=== PATIENT | male | born 1955 | race American Indian/Alaskan Native ===

== ENCOUNTER 2017-10-25 10:47 | Inpatient (IN) | payer MEDICARE, OTHER, MEDICAID ==
[~2017-10-25] VITALS: Ht 177.8 cm; Wt 103.7 kg
[~2017-10-25 10:47] MED LIST: ACETAMINOPHEN325 M1 PO; ASPIR-LOW81 MG PO; BACTRIM DS TAB1 EACH PO; BENADRYL25 MG PO; CENTRAL VITE F1 EACH PO; CLOTRIMAZOLE-BE15 GM TOP; DOXYCYCLINE HY100 MG PO; GABAPENTIN600 MG PO; IRON325 MG PO; JANUMET 50-1,01 EACH PO; JANUVIA25 MG PO; KEFLEX500 MG PO; LANTUS SOL100 UNIT/1 SQ; LIPITOR10 MG PO; LISINOPRIL10 MG PO; LISINOPRIL5 MG PO; METFORMIN HCL500 MG PO; OXYCODONE HCL5 MG PO; PRILOSEC20 MG PO
--- NOTE | 2017-10-25 14:16 | NUR ---
PT ARRIVED TO ROOM 129 VIA STRETCHER FROM ER. PT TRANSFERRED SELF TO BED, HOB ELEVATED. VITAL SIGNS COMPLETED. LEFT FOOT RED, SWOLLEN AND ULCER NOTED ON BOTTOM OF LEFT FOOT. PT HAS HAD 3 TOES AMPUTATED ON LEFT FOOT AND ALSO THE TIPS OF 4 TOES ON RIGHT FOOT ALSO AMPUTATED.
--- NOTE | 2017-10-25 15:14 | NUR ---
Medications reconciled using pharmacy records and patient interview
--- NOTE | 2017-10-25 16:13 | NUR ---
DR. CONTEH IN TO ASSESS LEFT FOOT ULCER AND SWELLING.
--- NOTE | 2017-10-25 19:50 | NUR ---
PT UP TO BATHROOM WITH WALKING BOOT ON LEFT FOOT. PT HAD LIQ STOOL AND VOIDED 150 MLS ORANGE URINE. C/O OF HEADACHE AND MEDICATED WITH TYLENOL 650 MG PO. PT RETURNED TO BED RESTING WITH LOWER EXTREMITY ELEVATED.
--- NOTE | 2017-10-25 20:00 | NUR ---
PT SHIFT REPORT RECEIVED FROM DAY SHIFT RN. PT BACK TO BED FROM BATHROOM. PT WAS ONLY ABLE TO VOID 150 PER REPORT. WILL UPDATED MD. NO OTHER ISSUES AT THIS TIME. PT CALLS APPROPRIATELY AND HAS A VISTOR AT THE BEDSIDE.
--- NOTE | 2017-10-25 20:15 | NUR ---
GAVE PRN PAIN MEDICATION FOR PAIN 02/11. PT DENIES ANY FURTHER NEEDS AT THIS TIME. WILL CONTINUE TO CLOSELY MONITOR.
--- NOTE | 2017-10-25 20:30 | NUR ---
CALLED MD DUONG TO NOTIFY HER OF 150ML URINE OUTPUT SINCE ADMISSION. PER MD INCREASE MAINTENANCE FLUIDS TO 125. FLUIDS INCREASED WILL CONTINUE TO CLOSELY MONITOR. PT UP TO CAMMODE AND HAD 200ML LOOSE BM. PT TOELRATED WELL. BACK TO BED WILL CONTINUE TO MONITOR.
--- NOTE | 2017-10-25 23:00 | NUR ---
PT COMPLAINING OF NEUROPATHY PAIN IN HANDS AND FEET. PT TAKES GABAPENTIN AT HOME AT HS. CALLED MD DUONG TO UPDATE. PER MD ORDER HOME DOSE. NO OTHER ISSUES AT THIS TIME. WILL CONTINUE TO CLOSELY MONITOR.
--- NOTE | 2017-10-26 00:32 | NUR ---
IN TO COMPLETED PT ASSESSMENT. UNCHANGED FROM PREVIOUS ASSESSMENT. ASSISTED PT TO BEDSIDE TO URE URINAL. PT TOELRATED WELL AND WAS ABLE TO USE ON HIS OWN. PT BACK TO BED. PT DENIES ANY OTHER ISSUES AT THIS TIME. WILL CONTINUE TO CLOSELY MONITOR.
--- NOTE | 2017-10-26 02:00 | NUR ---
PT RESTING AT THIS TIME. WILL CONTINUE TO ENCOURAGE REST. PT CALLS APPROPRIATELY.
--- NOTE | 2017-10-26 03:45 | NUR ---
PT CALLED TO USE URINAL. ASSISTED PT TO BEDSIDE TO USE URINAL. PT IS ABLE TO USE URINAL ON HIS OWN. PT DNEIES ANY NEEDS AT THIS TIME. PT ASSISTED BACK TO BED WITH FOOT ELEVATED ON PILLOWS. ASSESSMENT UNCHANGED FROM PRIOR ASSESSMENTS. WILL CONTINUE TO CLOSELY MONITOR.
--- NOTE | 2017-10-26 06:00 | NUR ---
PT CALLED TO HAVE ROOM TEMP TURNED UP. PT DENIES ANY OTHER NEEDS AT THIS TIME. WILL CONTINUE TO CLOSELY MONITOR.
--- NOTE | 2017-10-26 09:53 | NUR ---
ASSESSMENT COMPLETED, DENIES C/O AT THIS TIME. PT ATE 100% OF DIABETIC BREAKFAST.
--- NOTE | 2017-10-26 12:57 | NUR ---
PT REFUSED LUNCH AND IS SLEEPING AT THIS TIME. 1 UNIT INSULIN HELD.
--- NOTE | 2017-10-26 14:34 | NUR ---
PATIENT WITH REQUEST TO EAT, NEW MEAL TRAY ORDERED, PATIENT'S BLOOD SUGAR RE-CHECKED, 117 MG/DL, NO CORRECTIONS NEEDED. WILL RE-CHECK AT SCHEDULED TIME. PATIENT EATING.
--- NOTE | 2017-10-26 16:39 | NUR ---
PT RESTING IN BED, LEFT FOOT CLEANED AND DRESSING CHANGED PER DR. YADY ALBERTO. TYLENOL 650 MG GIVEN PO FOR C/O HEADACHE "12/12".
--- NOTE | 2017-10-26 17:23 | NUR ---
DR. CONTEH IN TO ASSESS LEFT FOOT AND CHANGE FOOT DRESSING. DRESSING CHANGE NOT DUE UNTIL TOMORROW. PT UP TO BSC WITH ONE PERSON ASSESS.
--- NOTE | 2017-10-26 19:45 | NUR ---
PT SHIFT REPORT RECEIVED FROM DAY SHIFT RN. PT IS RESTING IN BED WITH VISITOR AT BEDSIDE. PT DENEIS ANY NEEDS AT THIS TIME. WILL CONTINUE TO CLOSELY MONITOR.
--- NOTE | 2017-10-26 20:00 | NUR ---
PT SHIFT ASSESSMENT COMPLETED. PT IS RESTING IN BED. PT STATES HE FEELS BACK TO HIS BASELINE. LEFT FOOT IS WRAPPED IN DRY DRESSING. PT STATES PAIN IS BETTER. BREATH SOUNDS ARE CLEAR. BOWEL TONES ACTIVE. LEFT FOOT IS ELEVATED ON PILLOWS TO HELP DECREASE SWELLING. PT DENIES ANY NEEDS AT THIS TIME. WILL CONTINUE TO CLOSELY MONITOR.
--- NOTE | 2017-10-26 21:30 | NUR ---
PT UP TO BEDSIDE CAMMODE AND A LOOSE BM AND URINATED IN CAMMODE. PT TOLERATED GETTING BACK TO BED WELL. PT DENIES ANY FURTHER NEEDS. WILL CONTINUE TO CLOSELY MONITOR. PT CALLS APPROPRIATELY.
--- NOTE | 2017-10-27 00:30 | NUR ---
PT ASSESSMENT COMPLETED AND UNCHANGED FROM PREVIOUS ASSESSMENT. PT COMPLAINING OF HEADACHE. GAVE PRN TYLENOL. PT AT SIDE OF BED TO URINATE WITH NO ISSUES. PT BACK TO BED. ELEVATED LEFT FOOT ON PILLOWS. PT DENIES ANY OTHER NEEDS AT THIS TIME. WILL CONTINUE TO CLOSELY MONITOR.
--- NOTE | 2017-10-27 02:30 | NUR ---
IN TO GIVE PT ANTIBIOTICS. PT DENIES ANY NEEDS AT THIS TIME. BOTH IVS CONTINUE TO FLUSH WITH NO ISSUES. WILL CONTINUE TO CLOSELY MONITOR.
--- NOTE | 2017-10-27 03:50 | NUR ---
PT CALLED TO USE URINAL. PT ABLE TO USE ON HIS OWN AT THE SIDE OF THE BED. PT IS UNCOMFORTABLE IN THE BED AND WANTS T SIT UP FOR AWHILE. ASSISTED PT TO THE CHAIR. ELEVATED FEET ON PILLOWS AND GAVE WARM BLANKETS. PT ASSESSMENT REMAINS UNCHANGED FROM PRIOR ASSESSMENT AT THIS TIME. PT DENIES ANY FURTHER NEEDS. FRESH WATER AT BEDSIDE. CALL LIGHT IN HAND. WILL CONTINUE TO CLOSELY MONITOR.
--- NOTE | 2017-10-27 06:00 | NUR ---
PT UP TO URINATE AND BACK TO BED. PT TOLERATED WELL. PT DENIES ANY NEEDS AT THIS TIME. LEG ELEVATED ON PILLOWS. FRESH ICE WATER AT THE BEDSIDE. WILL CONTINUE TO CLOSELY MONITOR.
--- NOTE | 2017-10-27 07:55 | NUR ---
DR. DUONG AT BEDSIDE ASSESSING PT AND UPDATING PLAN OF CARE. PT SITTING AT EDGE OF BED AND FAMILY IN ROOM.
--- NOTE | 2017-10-27 09:17 | NUR ---
PATIENT LEFT FOR MRI OF LEFT FOOT AROUND 0845. PT'S SIGNIFICANT OTHER IN ROOM SLEEPING. BED LINEN CHANGED AT THIS TIME. PT OFF TELE FOR MRI.
--- NOTE | 2017-10-27 10:23 | NUR ---
PATIENT BACK FROM MRI AND NOW RESTING IN BED. IVF RESUMED AT THIS TIME. PT STATES HE IS CURRENTLY PAIN FREE. TELE ON AND NOTED TO BE IN A SINUS RHYTHM WITH A HR IN THE 80s AT THIS TIME.
--- NOTE | 2017-10-27 11:23 | NUR ---
PT RESTING AT THIS TIME
--- OUTSIDE RECORDS SUMMARY | 2017-10-27 12:02 | XMS | Clinical Summary ---
Demographics + + + | Address | [address] | | | [place] [address] | + + + | Home Phone | | + + + | Preferred Language | Unknown | + + + | Marital Status | Single | + + + | Mosque Affiliation | Unknown | + + + | Race | or | + + + | Ethnic Group | Not or | + + + Author + + + | Organization | Unknown | + + + | Address | Unknown | + + + | Phone | Unavailable | + + + Support + + + + + | Name | Relationship | Address | Phone | + + + + + | [place] | ECON | [address] | | | | | [place], | | | | | [place] [address] | | + + + + + Care Team Providers + +------+ + | Care Travertine Installer Name | Role | Phone | + +------+ + PP | Unavailable | + +------+ + Source Comments TALYA is fully live on both [facility] and [facility] Allergies No Known Allergies Current Medications Not on file Active Problems Not on file Social History + +-------+ +--------+------+ | Tobacco Use | Types | Packs/Day | Years | Date | | | | | Used | | + +-------+ +--------+------+ | Never Assessed | | | | | + +-------+ +--------+------+ + + + | Sex Assigned at | Date Recorded | | | | + + + | Not on file | | + + + Plan of Treatment + + + + + | Health Maintenance | Due Date | Last Done | Comments | + + + + + | INFLUENZA VACCINE | | | | | (FLU SHOT) | 8 | | | + + + + + Results Not on filefrom Last 3 Months"
--- OUTSIDE RECORDS SUMMARY | 2017-10-27 12:02 | XMS | Clinical Summary ---
Demographics + + + | Address | [address] | | | [place] [address] | + + + | Home Phone | | + + + | Preferred Language | Unknown | + + + | Marital Status | Single | + + + | Rastafarian Affiliation | Unknown | + + + | Race | Unknown | + + + | Ethnic Group | Unknown | + + + Author + + + | Author | [facility] | + + + | Organization | [facility] | + + + | Address | Unknown | + + + | Phone | Unavailable | + + + Support + + +---------+ + | Name | Relationship | Address | Phone | + + +---------+ + | Diane Gross | ECON | Unknown | | + + +---------+ + | Rodrigue Oh | ECON | Unknown | | + + +---------+ + | Nery Oh | ECON | Unknown | | + + +---------+ + Care Team Providers + +------+ + | Care Supervisor Costuming Name | Role | Phone | + +------+ + | Sona [place] FISH HATCHERY MANAGER | PP | | + +------+ + Allergies + + + + + + | Active Allergy | Reactions | Severity | Noted | Comments | | | | | Date | | + + + + + + | Ciprofloxacin | Hives | High | 04/03/20 | | | | | | 13 | | + + + + + + Current Medications + + +-------+---------+------+------+-------+ | Prescription | Sig. | Disp. | Refills | Star | End | Statu | | | | | | t | Date | s | | | | | | Date | | | + + +-------+---------+------+------+-------+ | aspirin 81 MG EC | Take 81 mg by mouth | | | | | Activ | | tablet | daily with | | | | | e | | | breakfast. | | | | | | + + +-------+---------+------+------+-------+ | Iodine SOLN | Apply topically. | | | | | Activ | | | | | | | | e | + + +-------+---------+------+------+-------+ | Chlorhexidine | Apply topically. | | | | | Activ | | Gluconate 4 % SOLN | | | | | | e | + + +-------+---------+------+------+-------+ | Cholecalciferol | Take 1 capsule by | | | | | Activ | | (VITAMIN D-3) 5000 | mouth daily. | | | | | e | | UNITS TABS | | | | | | | + + +-------+---------+------+------+-------+ | clotrimazole | Apply topically 2 | | | | | Activ | | (LOTRIMIN) 1 % cream | (two) times daily. | | | | | e | + + +-------+---------+------+------+-------+ | ferrous sulfate | Take 1 tablet by | | | | | Activ | | tablet | mouth daily with | | | | | e | | | breakfast. One | | | | | | | | tablet contains 65 | | | | | | | | mg elemental iron | | | | | | | | (324-325 mg ferrous | | | | | | | | sulfate) | | | | | | + + +-------+---------+------+------+-------+ | insulin glargine | Inject 18 Units into | | | | | Activ | | (LANTUS) 100 UNIT/ML | the skin nightly. | | | | | e | | injection | | | | | | | + + +-------+---------+------+------+-------+ | | Take 1 tablet by | | | | | Activ | | HYDROcodone-acetamin | mouth every 6 (six) | | | | | e | | ophen (NORCO) 5-325 | hours as needed. | | | | | | | MG per tablet | | | | | | | + + +-------+---------+------+------+-------+ | hydrophilic | Apply topically as | | | | | Activ | | ointment | needed. | | | | | e | + + +-------+---------+------+------+-------+ | lisinopril | Take 2.5 mg by mouth | | | | | Activ | | (PRINIVIL,ZESTRIL) | daily. | | | | | e | | 2.5 MG tablet | | | | | | | + + +-------+---------+------+------+-------+ | metformin | Take 1,000 mg by | | | | | Activ | | (GLUCOPHAGE) 1000 MG | mouth 2 (two) times | | | | | e | | tablet | daily with meals. | | | | | | + + +-------+---------+------+------+-------+ | sitaGLIPtin | Take 50 mg by mouth | | | | | Activ | | (JANUVIA) 50 MG | daily. | | | | | e | | tablet | | | | | | | + + +-------+---------+------+------+-------+ Active Problems + + + | Problem | Noted Date | + + + | CKD (chronic kidney disease), stage III | 04/03/2013 | + + + | Diabetes mellitus (HCC) | 04/03/2013 | + + + + + | Overview: Since . | + + + + + | Iron deficiency anemia | 04/03/2013 | + + + | Proteinuria | 04/03/2013 | + + + | Vitamin D deficiency | 04/03/2013 | + + + | Osteoarthritis | 04/03/2013 | + + + | Obesity | 04/03/2013 | + + + | Chronic low back pain | 04/03/2013 | + + + Social History + +-------+ +--------+------+ | Tobacco Use | Types | Packs/Day | Years | Date | | | | | Used | | + +-------+ +--------+------+ | Never Smoker | | | | | + +-------+ +--------+------+ + + +---------+ + | Alcohol Use | Drinks/We | oz/Week | Comments | | | ek | | | + + +---------+ + | No | | | | + + +---------+ + + + + | Sex Assigned at | Date Recorded | | | | + + + | Not on file | | + + + Last Filed Vital Signs + + + + | Vital Sign | Reading | Time Taken | + + + + | Blood Pressure | 137/85 | 04/06/2017 1:16 PM PDT | + + + + | Pulse | 86 | 04/06/2017 1:16 PM PDT | + + + + | Temperature | 36.7 C (98 F) | 04/06/2017 1:16 PM PDT | + + + + | Respiratory Rate | 18 | 06/11/2015 2:07 PM PST | + + + + | Oxygen Saturation | 100% | 04/06/2017 1:16 PM PDT | + + + + | Inhaled Oxygen | - | - | | Concentration | | | + + + + | Weight | 99.8 kg (220 lb) | 03/09/2017 11:21 AM PDT | + + + + | Height | 177.8 cm (5' 10") | 03/09/2017 11:21 AM PDT | + + + + | Body Mass Index | 31.57 | 03/09/2017 11:21 AM PDT | + + + + Plan of Treatment + + + + + | Health Maintenance | Due Date | Last Done | Comments | + + + + + | Diabetic Eye Exam | | | | | | 7 | | | + + + + + | Hemoglobin A1c | | | | | | 7 | | | + + + + + | Microalbumin | | | | | Screening | 7 | | | + + + + + | Vaccine: | | | | | Dtap/Tdap/Td (1 - | 6 | | | | Tdap) | | | | + + + + + | Vaccine: | | | | | Pneumococcal 19-64 | 6 | | | | (PPSV23 only) Medium | | | | | Risk (1 of 1 - | | | | | PPSV23) | | | | + + + + + | Colon Cancer | | | | | Screening | 7 | | | | (Colonoscopy) | | | | + + + + + | Statin Therapy | | | | | (optimal intensity) | 6 | | | + + + + + | Diabetic Foot Exam | | 05/22/2016, 05/22/2016 | | | | 7 | | | + + + + + | Vaccine: Influenza | | | | | (Season Ended) | 8 | | | + + + + + Results Not on filefrom Last 3 Months Insurance + +--------+ +------+-------+ + | Payer | Benefi | Subscriber | Type | Phone | Address | | | t Plan | ID | | | | | | / | | | | | | | Group | | | | | + +--------+ +------+-------+ + | MEDICARE | MEDICA | xxxxxxxxxx | | | [address] | | | RE | | | | [place] [phone] | | | IP-OP | | | | | + +--------+ +------+-------+ + | [facility] | YELLOW | xxxxxxxxx | | | | | PLANS | [place] | | | | | + +--------+ +------+-------+ + + +--------+ +--------+ + + | Guarantor Name | Accoun | Relation to | Date | Phone | Billing Address | | | t Type | Patient | of | | | | | | | | | | + +--------+ +--------+ + + | [place] | Person | Self | [birth year] | Home: | [address] | | | al/Fam | | 7 | [phone] | [place] | | | geral[place] | | | [phone] | [phone] | + +--------+ +--------+ + +
--- OUTSIDE RECORDS SUMMARY | 2017-10-27 12:03 | XMS | Clinical Summary ---
Demographics + + + | Address | [address] | | | [place] [address] | + + + | Home Phone | | + + + | Preferred Language | Unknown | + + + | Marital Status | Single | + + + | Quaker Affiliation | Unknown | + + + [...] + | [place] | ECON | [address] | | | | | [place], | | | | | [place] [address] | | + + + + + Care Team Providers + +------+ + | Care Director Construction Services Name | Role | Phone | + +------+ + PP | Unavailable | + +------+ + Source Comments TALYA is fully live on both [facility] and [facility] InPatient.[facility] Allergies No Known Allergies Current Medications Not [...]
--- OUTSIDE RECORDS SUMMARY | 2017-10-27 12:03 | XMS | Clinical Summary ---
Demographics + + + | Address | [address] | | | [place] [address] | + + + | Home Phone | | + + + | Preferred Language | Unknown | + + + | Marital Status | Unknown | + + + | Yazidism Affiliation | Unknown | + + + | Race | Unknown | + + + | Ethnic Group | Unknown | + + + Author + + + | Author | [facility] | | | and [place] | + + + | Organization | [facility] | | | and [place] | + + + | Address | Unknown | + + + | Phone | Unavailable | + + + Support + + +---------+ + | Name | Relationship | Address | Phone | + + +---------+ + | Diane Gross | ECON | Unknown | | + + +---------+ + | Ashwini Oh | ECON | Unknown | | + + +---------+ + Care Team Providers + +------+ + | Care Manager Implementation Name | Role | Phone | + +------+ + | Pcp, Prov Inactive | PP | Unavailable | + +------+ + Allergies + + + + + + | Active Allergy | Reactions | Severity | Noted | Comments | | | | | Date | | + + + + + + | Amoxicillin | Hives | Medium | 02/23/20 | | | | | | 14 | | + + + + + + | Ciprofloxacin | Hives | Medium | 02/23/20 | | | | | | 14 | | + + + + + + | Clarithromycin | Anaphylaxis | High | 02/23/20 | | | | | | 14 | | + + + + + + Current Medications + + +---------+---------+------+------+-------+ | Prescription | Sig. | Disp. | Refills | Star | End | Statu | | | | | | t | Date | s | | | | | | Date | | | + + +---------+---------+------+------+-------+ | aspirin 81 mg EC | Take 81 mg by mouth | | | | | Activ | | tablet | Daily. | | | | | e | + + +---------+---------+------+------+-------+ | omeprazole | Take 20 mg by mouth | | | | | Activ | | (PRILOSEC) 20 mg | 2 times daily. | | | | | e | | capsule | | | | | | | + + +---------+---------+------+------+-------+ | ferrous sulfate | Take 325 mg by mouth | | | | | Activ | | 325 mg tablet | 2 times daily (with | | | | | e | | | breakfast & | | | | | | | | dinner). Take two | | | | | | | | tablets | | | | | | + + +---------+---------+------+------+-------+ | gabapentin | Take 600 mg by mouth | | | | | Activ | | (NEURONTIN) 600 MG | 3 times daily. | | | | | e | | tablet | | | | | | | + + +---------+---------+------+------+-------+ | insulin glargine | Inject under the | | | | | Activ | | (LANTUS) 100 | skin nightly. Inject | | | | | e | | units/mL injection | 18 units | | | | | | | cartridge | subcutaneously at | | | | | | | | bedtime | | | | | | + + +---------+---------+------+------+-------+ | epinephrine | Inject into the | | | | | Activ | | (EPIPEN) 0.3 mg/0.3 | muscle once as | | | | | e | | mL injection (ER | needed. | | | | | | | Prepack) | | | | | | | + + +---------+---------+------+------+-------+ | | Apply topically | | | | | Activ | | clotrimazole-betamet | Twice daily as | | | | | e | | hasone (LOTRISONE) | needed. Apply a | | | | | | | cream | small amount to | | | | | | | | affected area (s) | | | | | | + + +---------+---------+------+------+-------+ | atorvaSTATin | Take 10 mg by mouth | | | | | Activ | | (LIPITOR) 10 mg | nightly. | | | | | e | | tablet | | | | | | | + + +---------+---------+------+------+-------+ | tamsulosin | Take 1 capsule by | 30 | 1 | 05/0 | | Activ | | (FLOMAX) 0.4 mg CAPS | mouth nightly. | capsule | | 5/20 | | e | | | | | | 16 | | | + + +---------+---------+------+------+-------+ Active Problems + + + | Problem | Noted Date | + + + | Acute kidney injury (HCC) | 11/06/2015 | + + + + + | Last Assessment & Plan: - Suspect due to hypotension, | | hypovolemia over the last few days on top of mild CKD due to | | long-standing diabetes- After fluids, creatinine decreased from | | 5.4 to 3.2 overnight- Stop lisinopril- Renal ultrasound showed no | | hydronephrosis- UA showed slight protein but otherwise benign | | | |- Renal ultrasound showed no hydronephrosis | | | |- UA showed slight protein but otherwise benign | + + + + + | Diabetes mellitus (HCC) | 11/06/2015 | + + + + + | Last Assessment & Plan: - Insulin-dependent diabetic- | | Continue glargine, insulin sliding scale, hold oral meds for now | |- Continue glargine, insulin sliding scale, hold oral meds for now | + + + + + | Hyperlipidemia | 11/06/2015 | + + + | Syncope | 11/06/2015 | + + + + + | Last Assessment & Plan: - Likely due to hypotension, check | | echo | + + + + + | Hypotension | 11/06/2015 | + + + + + | Last Assessment & Plan: - BP stable after fluids, no longer | | symptomatic - Suspect due to hypovolemia, only on small dose of | | BARB inhibitor- Check echo | | | |- Check echo | + + Family History + + +------+ + | Medical History | Relation | Name | Comments | + + +------+ + | Arthritis | Father | | | + + +------+ + | Heart disease | Father | | | + + +------+ + | High blood pressure | Father | | | + + +------+ + | Kidney disease | Father | | | + + +------+ + | Stroke | Father | | | + + +------+ + | Arthritis | Mother | | | + + +------+ + | Heart disease | Mother | | | + + +------+ + | High blood pressure | Mother | | | + + +------+ + | Kidney disease | Mother | | | + + +------+ + | Other (see comment) | Mother | | bleeding problem | + + +------+ + | Stroke | Mother | | | + + +------+ + + +------+--------+ + | Relation | Name | Status | Comments | + +------+--------+ + | Father | | | | + +------+--------+ + | Mother | | | | + +------+--------+ + Social History + +-------+ +--------+------+ | Tobacco Use | Types | Packs/Day | Years | Date | | | | | Used | | + +-------+ +--------+------+ | Former Smoker | | | | | + +-------+ +--------+------+ + +---+---+---+ | Smokeless Tobacco: | | | | | Never Used | | | | + +---+---+---+ + + +---------+ + | Alcohol Use | Drinks/We | oz/Week | Comments | | | ek | | | + + +---------+ + | Yes | | | rare | + + +---------+ + + + + | Sex Assigned at | Date Recorded | | | | + + + | Not on file | | + + + Last Filed Vital Signs + + + + | Vital Sign | Reading | Time Taken | + + + + | Blood Pressure | 135/69 | 11/07/2015747 PDT | + + + + | Pulse | 87 | 11/07/2015747 PDT | + + + + | Temperature | 36.9 C (98.4 F) | 11/07/2015747 PDT | + + + + | Respiratory Rate | 18 | 11/07/2015747 PDT | + + + + | Oxygen Saturation | 95% | 11/07/2015747 PDT | + + + + | Inhaled Oxygen | - | - | | Concentration | | | + + + + | Weight | 100.7 kg (222 lb 0.1 | 11/07/2015313 PDT | | | oz) | | + + + + | Height | 177.8 cm (5' 10") | 11/05/20152019 PDT | + + + + | Body Mass Index | 31.85 | 11/07/2015313 PDT | + + + + Plan of Treatment + + + + + | Health Maintenance | Due Date | Last Done | Comments | + + + + + | Hepatitis C | | | | | Screening | 7 | | | + + + + + | Diabetic Eye Exam | | | | | (Bi-Annually) | 5 | | | + + + + + | Diabetic Foot Exam | | | | | | 5 | | | + + + + + | Hemoglobin A1c Q3 | | | | | Months | 5 | | | + + + + [...] | + + + + + | COLON CANCER | | | | | SCREENING | 7 | | | | (COLONOSCOPY EVERY | | | | | 10 YEARS 50-75) | | | | + + + + + | Vaccine: Influenza | | | | | (Season Ended) | 8 | | | + + + + + Results Not on filefrom Last 3 Months Insurance + +--------+ +--------+ +---------+ | Payer | Benefi | Subscriber | Type | Phone | Address | | | t Plan | ID | | | | | | / | | | | | | | Group | | | | | + +--------+ +--------+ +---------+ | MEDICARE | MEDICA | xxxxxxxxxx | Medica | [phone] | | | RE | | re | [phone] | | | | PART A | | | | | | | AND B | | | | | + +--------+ +--------+ +---------+ | [employer] | MODA | xxxxxxxx | Medica | [phone] | | MEDICAID HMO | HEALTH | | id | [phone] | | | | MDCD | | | | | | | [place]MO [place] | | | | | + +--------+ +--------+ +---------+ | HEALTH | IHS | xxxxxxxxx | Indemn | | | | SERVICE | YELLOW | | ity | | | | | [place] | | | | | + +--------+ +--------+ +---------+ + +--------+ +--------+ + + | Guarantor Name | Accoun | Relation to | Date | Phone | Billing Address | | | t Type | Patient | of | | | | | | | | | | + +--------+ +--------+ + + | [place] | Person | Self | [birth year] | Home: | [address] | | | [address] | | [phone] | [phone] | [place] | | | geraldo | | | [phone] | [phone] | + +--------+ +--------+ + +
--- OUTSIDE RECORDS SUMMARY | 2017-10-27 12:03 | XMS | Clinical Summary ---
Demographics + + + | Address | [address] | | | [place] [address] | + + + | Home Phone | | + + + | Preferred Language | Unknown | + + + | Marital Status | Single | + + + | Hinduism Affiliation | Unknown | + + + [...] + | [place] | ECON | [address] | | | | | [place], | | | | | [place] [address] | | + + + + + Care Team Providers + +------+ + | Care Licensing Services Clerk Name | Role | Phone | + +------+ + PP | Unavailable | + +------+ + Source Comments TALYA is fully live on both [facility] and [facility] InPatient.[facility] Allergies No Known Allergies Current Medications Not [...]
--- OUTSIDE RECORDS SUMMARY | 2017-10-27 12:03 | XMS | Clinical Summary ---
Demographics + + + | Address | [address] | | | [place] [address] | + + + | Home Phone | | + + + | Preferred Language | Unknown | + + + | Marital Status | Unknown | + + + | Jew Affiliation | Unknown | + + + | Race | Unknown | + + + | Ethnic Group | Unknown | + + + Author + + + | Author | [facility] | | | and [place] | + + + | Organization | [facility] | | | and [...] Team Providers + +------+ + | Care Broadcast Producer Name | Role | Phone | + [...] | Self | [birth year] | Home: | [address] | | | [place] | | [phone] | [phone] | [place] | | | geraldo | | | [phone] | + +--------+ +--------+ + +
--- OUTSIDE RECORDS SUMMARY | 2017-10-27 12:03 | XMS | Clinical Summary ---
Demographics + + + | Address | [address] | | | [place] [address] | + + + | Home Phone | | + + + | Preferred Language | Unknown | + + + | Marital Status | Unknown | + + + | Worship Affiliation | Unknown | + + + | Race | Unknown | + + + | Ethnic Group | Unknown | + + + Author + + + | Author | [facility] | | | and [place] | + + + | Organization | [facility] | | | and [...] Team Providers + +------+ + | Care Costume Design Teacher Name | Role | Phone | + [...] | Self | [birth year] | Home: | [address] | | | [place] | | [phone] | [phone] | [place] | | | g[place]do | | | [phone] | [phone] | + +--------+ +--------+ + +
--- OUTSIDE RECORDS SUMMARY | 2017-10-27 12:03 | XMS | Clinical Summary ---
Demographics + + + | Address | [address] | | | [place] [address] | + + + | Home Phone | | + + + | Preferred Language | Unknown | + + + | Marital Status | Single | + + + | Hoahaoism Affiliation | Unknown | + + + | Race | Unknown | + + + | Ethnic Group | Unknown | + + + Author + + + | Author | [facility] [email or web address] | + + + | Organization | [facility] [email or web address] [facility] | + + + | Address [...] Team Providers + +------+ + | Care Credit Administration Officer Name | Role | Phone | + +------+ + | Sona Boston SOLE EDGE INKER MACHINE | PP | | + +------+ + [...] RE | | | | [place] [address] | | | IP-OP | | | | | + +--------+ +------+-------+ + | [facility] | YELLOW | [phone] | | [...] | Self | [birth year] | Home: | [address] | | | al/Fam | | [phone] | [phone] | [place] | | | geraldo | | | [phone] | [phone] | + +--------+ +--------+ + +
--- OUTSIDE RECORDS SUMMARY | 2017-10-27 12:03 | XMS | Clinical Summary ---
Demographics + + + | Address | [address] | | | [place] [address] | + + + | Home Phone | | + + + | Preferred Language | Unknown | + + + | Marital Status | Single | + + + | Nondenominational Affiliation | Unknown | + + + | Race | Unknown | + + + | Ethnic Group | Unknown | + + + Author + + + | Author | [facility] [employer] [facility] | + + + | Organization | [facility] [employer] [facility] | + + + | Address [...] Team Providers + +------+ + | Care Career Services Director Name | Role | Phone | + +------+ + | Sona Boston RN ONCOLOGY | PP | | + +------+ + [...] RE | | | | [place] [address] | | | IP-OP | | | | | + +--------+ +------+-------+ + | SUDANESE/[facility] | YELLOW | [phone] | | [...] | Self | [birth year] | Home: | [address] | | | al/Fam | | [phone] | [phone] | [place] | | | geraldo | | | [phone] | [phone] | + +--------+ +--------+ + +
--- NOTE | 2017-10-27 14:59 | NUR ---
PATIENT UP TO BATHROOM WITH WALKER AND TOLERATING WELL.
--- NOTE | 2017-10-27 17:01 | NUR ---
PATIENT TRANSFER FROM CCU AT ABOUT 1600. PATIENT TO FLOOR VIA BED. PATIENT DENIED PAIN. ASSESSMENT DONE. DRESSING ON LEFT FOOT WNL. IV SITE PATENT AND IV ABX AND FLUID INFUSING WELL. IV ON THE LEFT AC IS HURTING PER PATIENT. IT WAS DC AND NEW IV SITE ESTABLISHED AND IBX INFUSING. PATIENT TOLERATED WELL. CALL LIGHT IN REACH. FAMILY IN ROOM.
--- NOTE | 2017-10-27 17:08 | NUR ---
PATIENT SITTING UP IN BED. FAMILY IN ROOM. FRESH ICE WATER ON BEDSIDE TABLE. CALL LIGHT IN REACH. NO OTHER NEEDS AT THIS TIME.
--- NOTE | 2017-10-27 18:19 | NUR ---
PATIENT ASSISTED TO BATHROOM TO SHOWER. PATIENT DENIES ANY PAIN AT THIS TIME. PATIENT ATE 100% OF HIS MEAL.
--- NOTE | 2017-10-27 18:21 | NUR ---
PATIENT WAS TRANSFER TO [facility] FROM CCU. PATIENT HAD NOT COMPLAINED OF ANY PAIN SINCE TRANFER TO FLOOR. NEW SITE ESTABLISHED. DRESSING ON THE LEFT FOOT WILL BE CHANGED THIS PM. IV ABX
--- NOTE | 2017-10-27 19:00 | NUR ---
RECEIVED REPORT FROM RN. PATIENT RESTING IN BED, DENIES NEEDS. CALL LIGHT WITHIN REACH.
--- NOTE | 2017-10-27 19:05 | NUR ---
PATIENT RESTING IN BED. RN IN ROOM. CALL LIGHT IN REACH. FRESH ICE WATER AT BEDSIDE TABLE. NO OTHER NEEDS AT THIS TIME.
--- NOTE | 2017-10-27 20:59 | NUR ---
VITALS AND I&OS DONE AND CHARTED. FRESH WATER GIVEN. BEDSIDE TABLE AND CALL LIGHT WITHIN REACH. PT NEEDS NOTHING ELSE AT THIS TIME.
--- NOTE | 2017-10-27 21:11 | NUR ---
PATIENT RESTING IN BED, BREATHING IS EVEN AND UNLABORED. DENIES NEEDS AT THIS TIME. ASSESSMENT DONE, MEDICATIONS GIVEN. CALL LIGHT WITHIN REACH.
--- NOTE | 2017-10-28 00:25 | NUR ---
PATIENT RESTING COMFORTABLY IN BED, BREATHING IS EVEN AND UNLABORED. CALL LIGHT WITHIN REACH.
--- NOTE | 2017-10-28 01:45 | NUR ---
PATIENT RESTING IN BED, BREATHING IS EVEN AND UNLABORED. DENIES NEEDS AT THIS TIME, REPORTS NO PAIN. CALL LIGHT WITHIN REACH.
--- NOTE | 2017-10-28 03:00 | NUR ---
PATIENT RESTING IN BED, NEW IV STARTED BY RADAR SCIENTIST DUE TO IV INFILTRATING. PATIENT DENIES NEEDS, NO PAIN. CALL LIGHT WITHIN REACH.
--- NOTE | 2017-10-28 06:33 | NUR ---
PATIENT RESTING IN BED, BREATHING IS EVEN AND UNLABORED. DENIES NEEDS AT THIS TIME, NO PAIN. CALL LIGHT WITHIN REACH.
--- NOTE | 2017-10-28 07:50 | NUR ---
SHIFT REPORT RECEIVED FROM SAL AT BEDSIDE. PATIENT IN BED APPEARS TO BE SLEEPING AT TIME OF REPORT. RR EVEN/UNLABORED. NO APPARENT DISTRESS. WILL CONTINUE TO MONITOR
--- NOTE | 2017-10-28 08:17 | NUR ---
ORDERED PATIENT'S BREAKFAST. SAID HE TOOK A SHOWER YESTERDAY. MIGHT TAKE ONE SOMETIME TODAY. DID BLOOD SUGAR CHECK.
--- NOTE | 2017-10-28 11:21 | NUR ---
BROUGHT FAMILY A GLASS OF ICE WATER AND SOME ICE CREAM.
--- NOTE | 2017-10-28 11:51 | NUR ---
PATIENT UP TO CHAIR, CBG CHECKED. INSULIN ADMINISTERED BASED ON SS. PATIENT DENIES ANY PAIN AT THIS TIME.
--- NOTE | 2017-10-28 12:55 | NUR ---
BROUGHT PATIENT A GLASS OF ICE WATER AND ALSO A GLASS OF ICE. PATIENT IS UP IN HIS CHAIR. ALSO CHANGED BED LINENS.
--- NOTE | 2017-10-28 12:59 | NUR ---
PATIENT RESTING IN THE CHAIR AT THIS TIME. NO REQUEST MADE. WILL CONTINUE TO MONITOR. CALL LIGHT IN REACH.
--- NOTE | 2017-10-28 14:42 | NUR ---
AFTERNOON ROUNDING HAD JUST LEFT HIS ROOM. SAID SHANAE, HE SMILED AND I TOLD HIM I DID NOT WANT TO BOTHER HIM AFTER ALL THE STAFF JUST IN HIS RM. HE SAID THANK YOU. PT MENTIONED THAT HE IS FEELING MUCH BETTER. EXTENDED A BLESSING, WILL FOLLOW NEEDED
--- NOTE | 2017-10-28 15:02 | NUR ---
PATIENT RESTING IN THE CHAIR. EVENING ABX STARTED. IS PATENT, NO PAIN OF SYNG OF INFITRATION. PATIENT DENIES PAIN AT THIS TIME. FRESH WATER GIVEN. FAMILY ROOM VISITING.
--- NOTE | 2017-10-28 17:05 | NUR ---
PATIENT RESTING IN BED. NEW IV SITE ESTABLISHED, IV VANCO STARTED. NO REQUEST MADE.
--- NOTE | 2017-10-28 18:36 | NUR ---
PATIENT HAD DONE WELL TODAY. HAD BEEN ON THE CHAIR MOST OF THE DAY. NEW IV SITE ON THE LEFT AC THIS PM. DRESSING CHANGED THIS PM. IV FLUID (NS) INFUSING @ 75 AND STILL IV ABX. STILL ON TELE #6. NO FEVER. ACTIVE BOWEL TONES, LUNGS CLEAR. NO OSTEOMYLITIS ACCORDING TO SCAN RESULT.
--- NOTE | 2017-10-28 20:00 | NUR ---
Charge Nurse Rounding Note. Pt awake, watching tv, no c/o pain, Left foot dressing intact. No requests, Family in room
--- NOTE | 2017-10-28 20:03 | NUR ---
RECIEVED BEDSIDE REPORT FROM DAYSAZFT RN. PT IN BED, LEFT FOOT ELEVATED. NS INFUSING AT 75ML/HR. PT REPORTS NO PAIN AT THIS TIME. CALL LIGHT WTIHIN REACH. NO OTHER NEEDS AT THIS TIME.
--- NOTE | 2017-10-28 20:35 | NUR ---
VITALS AND I&OS DONE AND CHARTED. BEDSIDE TABLE AND CALL LIGHT WITHIN REACH. PT NEEDS NOTHING ELSE AT THIS TIME.
--- NOTE | 2017-10-28 22:00 | NUR ---
ASSESSMENT COMPLETED. LUNGS SOUND CLEAR. HR IS 82, REGULAR WITH NO ABNORMAL SOUNDS. PT REPORTS NUBMNESS AND TINGLING IN BILAT LE BASELINE. PT REPORTS NO PAIN AT THIS TIME. DRESSING IS C/D/I. LEFT FOOT IS ELEVATED. CEFEPIME INFUSING AT THIS TIME. CAP REFILL IS <3 IN ALL FOUR EXTREMITIES. PULSE +2. FLUIDS INFUSING @ 75ML/HR. PT IS ON TELE #6. IN SINUS RYTHM. BOWEL TONES ARE ACTIVE. VSS. BLOOD SUGAR WAS 239. 5 UNITS GIVEN. SWELLING IN THE LEFT FOOT. CALL LIGHT WITHIN REACH
--- NOTE | 2017-10-29 | NUR ---
PT APPEARED TO BE SLEEPING. IV INFILTRATED. CHANGED. PT TOLERATED WELL. LEFT FOOT ELEVATED ON PILLOW. FLUIDS INFUSING. RESPIRATIONS ARE EQUAL AND UNLABORED. CALL LIGHT WITHIN REACH.
--- NOTE | 2017-10-29 02:17 | NUR ---
PT UP IN BED AWAKE ON PHONE WATCHING TV. ANTIBIOTIC INFUSING. FLUIDS INFUSING. URINAL AT BEDSIDE. CALL LIGHT WITHIN REACH. REPORTS NO PAIN AT THIS TIME. REPORTS NO SOB.
--- NOTE | 2017-10-29 04:39 | NUR ---
ANTIBIOTICS INFUSING. PT APPEARS TO BE SLEEPING. RESPIRATIONS EQUAL AND UNLABORED. ASSESSMENT COMPLETED. NO CHANGES FROM BEGINGING OF SHIFT. CALL LIGHT WITHIN REACH. TELE # 6 HR 83. PT IS IN SINUS RYTHM.
--- NOTE | 2017-10-29 05:21 | NUR ---
PT HAD GOOD NIGHT. UP THROUGHOUT THE NIGHT TO USE URINAL. IV CEFEPIME, FLAGYL AND VANCO. ACCU CHECKS MEALS AND BEDTIME. BS WAS 238. 5 UNITS INSULIN GIVEN. NS @ 75ML/HR. PT REPORTS NO PAIN. TELE #6. HR AROUND 80'S. WHEN GETTING UP TO USE URINAL HR SPIKED TO 129. PT REPORTED NO OTHER SYMPTOMS AND RECOVERED WELL. DRESSING CHANGES EVERY DAY. LAST ONE DONE AT 1900. ADA DIET. DR CONTEH CONSULTING AND TO MAKE FINAL TREATMENT DECISION. POSSIBLE DEBRIDMENT OF FOOT WOUNDS. NO FEVERS THIS SHIFT.
--- NOTE | 2017-10-29 06:12 | NUR ---
VITALS AND I&OS DONE AND CHARTED. BEDSIDE TABLE AND CALL LIGHT IN REACH. SET HIM UP TO BRUSH HIS TEETH IN BED. PT NEEDS NOTHING ELSE AT THIS TIME.
--- NOTE | 2017-10-29 07:30 | NUR ---
BEDSIDE REPORT RECEIVED FROM DYLAN. PATIENT RESTING IN BED APPEARED TO BE SLEEPING AT TIME OF REPORT. NO APPARENT DISTRESS NOTED. RR UNLABORED. CALL LIGHT IN REACH.
--- NOTE | 2017-10-29 08:35 | NUR ---
PATIENT SITTING AT THE EDGE OF BED. REPORTED NO PAIN. SHIFT ASSESSMENT DONE. DRESSING IN THE LEFT FOOT D/C/I. PATIENT REPORT CHRONIC NUMBNESS AND TINGLING IN THE LEFT FOOT. PERIPHERAL PULSES PALPABLE. LUNDS ARE CLEAR AND BOWEL TONE ACTIVE. CBG CHECKED AND INSULIN ADMINISTERED PER SS. FOOD TRAY SET FOR PATIENT. EATING BREAKFASTAT THIS TIME NO OTHER REQUEST.
--- NOTE | 2017-10-29 10:25 | NUR ---
SPOKE WITH PATIENT IN ROOM. PATIENT UP IN CHAIR AFTER SHOWER. STATES HE FEELS MUCH BETTER. WE DISCUSSED DISCHARGE PLAN. HE WANTS TO RETURN HOME WITH FAMILY. STATES HE HAD [facility] FOLLOW HIM BEFORE AND HE IS OPEN TO THAT FOR DRESSING NEEDS IF NEEDED. WE DISCUSSED EDUCATIONAL FOLDER AND PATIENT HAS NO QUESTIONS AT THIS TIME.
--- NOTE | 2017-10-29 10:49 | NUR ---
PATIENT TOOK SHOWER. NOW IS SITTING UP IN HIS CHAIR. LINEN CHANGED.
--- NOTE | 2017-10-29 12:23 | NUR ---
PATIENT RESTING IN THE CHAIR, DENIES PAIN, CBG CHECKED AND INSULIN WAS ADMINISTERED PER SLIDDING SCALE.
--- NOTE | 2017-10-29 12:50 | NUR ---
PT SITTING IN CHAIR, ALERT AND ORIENTED WATCHING TV. PT STATED HE WAS DOING WELL, JUST CAN'T SLEEP WELL. EXTENDED A BLESSING, WILL FOLLOW NEEDED
--- NOTE | 2017-10-29 13:18 | NUR ---
DR CONTEH IS IN ROOM TO SEE AND EVALUATE PATIENT.
--- NOTE | 2017-10-29 14:51 | NUR ---
SPOKE WITH DR DUONG WHO THINKS PATIENT MAY NEED UP TO TWO WEEKS IV ABX FOR INFECTION. PATIENT HAS LIMITED ABX CHOICES DUE TO INFECTION AND ALLERGIES. SHE SUGGESTED HE MAY NEED TRANSITIONAL CARE FOR ABX HE STILL ISN'T UP AND AROUND ON HIS FOOT YET. DISCUSSED WITH PATIENT, HE AGREES TO STAY HERE IF HE CAN FOR TREATMENT.
--- NOTE | 2017-10-29 18:54 | NUR ---
PATIENT HAD DONE WELL TODAY. NO PAIN FOR THIS SHIFT.STILL ON IV ABX. IV SITE PATENT. DR CONTEH WAS IN TODAY TO SEE PATIENT. PLAN FOR BOATSWAINS MATE IV THERAPY. DRESSING IN THE LEFT FOOT WAS CHANGED BY DR CONTEH. HAD A SHOWER THIS AM.
--- NOTE | 2017-10-29 20:03 | NUR ---
RECIEVED DAY SHIFT REPORT FROM DAY SHIFT RN. PT IN BED. FAMILY AT BEDSIDE. DRESSING C/D/I. PT REPORTD NO PAIN AT THIS TIME. CALL LIGHT WITHIN REACH.
--- NOTE | 2017-10-29 22:00 | NUR ---
PT IN BED. ASSESSMENT COMPLETED. CEF INFUSIN. PT REPORTS NO PAIN. LUNGS SOUND CLEAR. LEFT FOOT DRESSING IS C/D/I. PT REPORTS CHRONIC NUBMESS AND TINGLING IN BILAT LE. HEART SOUNDS NORMAL WITH NO EXTRA SOUNDS. RESPIRATIONS EQUAL AND UNLABORED. CAP REFILL <3 ALL 4 EXTREMITIES. CALL [facility] WITHIN REACH.
--- NOTE | 2017-10-29 23:02 | NUR ---
PT SLEEPING IN BED. VITALS AND I AND O DONE. PM CARE.
--- NOTE | 2017-10-30 00:36 | NUR ---
PT SLEEPING WILL CHECK BACK ON LATER
--- NOTE | 2017-10-30 01:47 | NUR ---
PT APPEARS TO BE SLEEPING. CEF INFUSING. RESPIRATIONS EQUAL AND NONLABLORED. CALL LIGHT WITIHIN REACH
--- NOTE | 2017-10-30 03:20 | NUR ---
PT APPEARS TO BE SLEEPING. CALL LGIHT WTIIHIN REACH. ANTIBIOTICS INFUSING.
--- NOTE | 2017-10-30 04:52 | NUR ---
PT HAD A GOOD NIGHT. CEFEPIME ANTIBIOTIC. DRESSING CHANGED Q DAY. BS WAS 318. 7 UNITS GIVEN. PT IS SL. POTASSIUM GIVEN LAST NIGHT. SBA WITH FWW.
--- NOTE | 2017-10-30 07:44 | NUR ---
CALLED AND UPDATED DOCTOR MARY ON CRITICAL LOW MAGNESIUM LEVEL OF 0.9MG AT THIS TIME. K LEVEL WAS ALSO LOW AT 3.2 ORDERS RECEIVED FOR MAG RIDERS AND KCL REPLACEMENT.
--- NOTE | 2017-10-30 08:43 | NUR ---
MORNING ASSESSMENT DUE. THIS RN NOTIFIED OF CRITICAL LAB VALUES BY CHARGE NURSE. MAGNESIUM HUNG. PT UP FOR BREAKFAST. CBG TAKEN. ASSESSMENT DONE. MEDICATIONS GIVEN ORDERED. MD CALLED AND STATES HE IS CHANING POTASSIUM ORDER TO PO (NOT IV). ORDER NOTED. PHARAMCY CALLED AND NOTIFIED OF CHANGE. PT UP AND VISITING WITH GRANDSON. NO REQUESTS OR COMPLAINTS AT THIS TIME.
--- NOTE | 2017-10-30 10:00 | NUR ---
PICC LINE RN STATES MID LINE HAS BEEN PLACED WITH 0 CM OUT AND 27CM LENGTH OF LINE. THIS RN CALLED TO PACU FOR ASSISTANCE. REPORT GIVEN TO BETHANY RITCHIE WHO WILL ASSUME CARE OF PT UNTIL THIS RN CAN RETURN.
--- NOTE | 2017-10-30 10:08 | NUR ---
MIDLINE FINISHED, PATIENT GIVEN SCHEDULED MEDICATION AT THIS TIME, VITALS TAKEN
--- NOTE | 2017-10-30 10:16 | NUR ---
THIS RN RETURNED TO UNIT. REPORT TAKEN FROM BETHANY RITCHIE. PT UP AT EDGE OF BED. SHOWER OFFERED. PT DECLINES. MAG AND CEFEPIME INFUSING. PT STATES HE HAS NO REQUESTS OR COMPLAINTS AT THIS TIME.
--- NOTE | 2017-10-30 10:16 | NUR ---
MIDLINE INSERTION NOTE: ASKED BY DR. HERNANDEZ TO EVALUATE PATIENT FOR POTENTIAL MIDLINE PLACEMENT. AFTER REVIEWING THE CHART AND INTERVIEWING THE PATIENT, NO ABSOLUTE CONTRAINDICATIONS WERE IDENTIFIED. PATIENT WAS ABLE TO GIVE VERBAL CONSENT FOR MIDLINE PLACMENT AND HAD AN OPPORTUNITY TO ASK QUESTIONS ABOUT THE MIDLINE PLACEMENT. PATIENT'S RIGHT ARM WAS EVALUTED, AND THE BASILIC AND THE BRACHIAL VEINS WERE IDENTIFIED VERY EASILY. BOTH VEINS WERE NOTED TO BE APPROXIMATELY GREATER THAN 8 FR BY THE SITE [facility] USING CDC RECOMMENDED GUIDELINES FOR STERILE PROCEDURE, THE PATIENT'S RIGHT ARM WAS STERILY PREPPED. THE BASILIC VEIN WAS EASILY ACCESSED ON THE FIRST ATTEMPT. THE GUIDEWIRE, INTRODUCER AND THE MIDLINE ALL ADVANCED EASILY INTO THE VEIN. STERILE DRESSING INCLUDING AN ANTIBACTERIAL PATCH WERE APPLIED. PATIENT WAS ENCOURAGED TO ASK QUESTIONS REGARDING HIS MIDLINE. REPORT GIVEN TO BETHANY MCCLELLAND WHO WAS CARING FOR PATIENT.
--- NOTE | 2017-10-30 10:45 | NUR ---
DRESSING CHANGED DONE PER ORDER. TWO DIEBETIC PRESSURE ULCERS NOTED. BOTH ARE CIRCULAR IN SIZE AND 2CM WIDE, 2CM LONG, AND NO DEPTH NOTED. EDGES ARE BACK NECROTIC TISSUE. WOUND CLEANSED WITH HIBICLENS, MUPIROCIN OINTMENT APPLIED. GAUZE IN PLACE. FOOT WRAPED WITH CAST PADDING AND LOOSELY WITH COBAN INSTRUCTED BY . PT TOLERATED DRESSING CHANGE WITH OUT ANY PAIN. PT WATCHING TV WITH GRANDSON. NO REQUESTS OR COMPLAINTS AT THIS TIME. CALL LIGHT WITHIN REACH.
--- NOTE | 2017-10-30 11:51 | NUR ---
PUMP ALARMING, INFUSION AND FLUSH COMPLETE. PIV SALINE LOCKED AT THIS TIME. PT ASSISTED UP TO CHAIR. NO ADDITIONAL REQUESTS OR COMPLAINTS AT THIS TIME. FAMILY AT CHAIRSIDE. CALL LIGHT WITHIN REACH.
--- NOTE | 2017-10-30 12:05 | NUR ---
FOCUSED ASSESSMENT DUE. THIS RN TO BEDSIDE. ASSESSMENT DONE. PT REMAINS UP TO CHAIR. MEDICAITONS GIVEN ORDERED. MULTIPLE EMPTY BOTTLES OF JUICE FOUND IN ROOM. PT EDUCATION DONE R/T BLOOD SURGAR. PT ACKNOWLEDGE EDUCATION BUT STATES "I'M JUST NOT THAT WORRIED ABOUT IT." PT VISITING WITH FAMILY. NO ADDITIONAL REQUESTS OR COMPLAINTS AT THIS TIME. CALL [facility] WITHIN REACH.
--- NOTE | 2017-10-30 14:12 | NUR ---
AT BEDSIDE. THIS RN CALLED TO JOIN REPORT. MD REMOVES DRESSING TO EXAMINE FOOT. MD INSTRUCTS THIS RN TO REAPPLY BANDAGE AT THIS TIME. PT VERBALIES UNDERSTANDING OF INSTRUCTION FROM MD R/T BLOOD SUGAR LEVELS AND HOW THIS IS REALATED TO HEALING. CEFEPIME GIVEN ORDERED (SEE MAR). PT COMPLAINS OF PAIN AT PIV SITE IN LEFT AC. PIV EXAMINED. PT COMPLAINTS OF PAIN WITH FLUSHING. PIV DC'D PER PROTOCOL. PT ADVISED THAT A NEW 2ND IV MAY BE NEEDED LATER DEPENDING ON MEDICATIONS ORDERED BY MD. PT VERBALIZES UNDERSTANDING AND STATES "THAT'S FINE." PT WATCHING TV. BED RAILSU P. CALL LIGHT WITHIN REACH. NO REQUESTS OR COMPLAINTS AT THIS TIME.
--- NOTE | 2017-10-30 16:52 | NUR ---
PATIENT REFUSED SHOWER DUE TO CONTINUOUS IV ANTIBIOTICS.
--- NOTE | 2017-10-30 17:11 | NUR ---
ASSESMENT DUE. THIS RN TO BEDSIDE. PT WATCHING TV WITH GRANDSON. ASSESSMENT DONE. PT DENIES PAIN. EDUCATION DONE ON DIETARY CHOICES AND BLOOD SUGAR AND HOW THAT RELATES TO HEALING. PT DISINTERESTED AT THIS TIME. PT ENCOUARGED TO AMBULTE. PT STATES "ILL GET UP AFTER DINNER." BLOOD SURGAR TAKEN. CALL LIGHT WITHIN REACH. BED RAILS UP.
--- NOTE | 2017-10-30 17:29 | NUR ---
DINNER ARRIVED, MEDICATION GIVEN ORDERED (SEE MAR). PT EATING WITH GRANDSON. NO REQUESTS OR COMPLAINTS. BED RAILS UP. CALL LIGHT WITHIN REACH.
--- NOTE | 2017-10-30 17:48 | NUR ---
PT HERE FOR SEPSIS R/T DM FOOT ULCER. AFEBRIAL TODAY. STAND BY ASSIST WITH FWW. ENCOURAGE AMBULATION, PT REFUSED TODAY. BLOOD SUGAR CHECKS 2-300'S. INSULIN GIVEN. MID LINE PLACED TODAY. IV MAG GIVEN X3. PO POTASSIUM GIVEN. DAILY DRESSING CHANGES TO FOOT. DR. BRUNO WILL COME TOMORROW TO FURTHER EXAMIN WOUNDS. PT USING CALL LIGHT APPROPRIATLY.
--- NOTE | 2017-10-30 19:51 | NUR ---
BEDSIDE REPORT RECIEVED FROM DAY SHIFT RN. PT IN BED ON LEFT SIDE. PT REPORTS NO PAIN AT THIS TIME. ANTIBIOTIC DONE INFUSING. PT REPORTS NO SOB. SAFETY CHECK DONE. MIDLINE DRESING C/D/I. FLUSHES WELL. DRESSING ON LEFT FOOT IS C/D/I. ELEVATED ON PILLOW. CALL LIGHT WITHIN REACH. REPORTS NO OTHER NEEDS AT THIS TIME.
--- NOTE | 2017-10-30 22:00 | NUR ---
ASSESSMENT COMPLETED. PT IS A/O IN BED. LUNGS SOUND CLEAR X4 QUADRANTS. HEART TONES ARE REGULAR WITHIN NO ABNORMAL HEART SOUNDS. BOWEL TONES HYPERACTIVE. NO BOWEL MOVEMENT SINCE THE . PT REPORTS CHRONIC NUMBNESS AND TINGLING IN BILAT LE. DRESSING IS C/D/I ON LEFT FOOT . FOOT ELEVATED ON PILLOW. NO FEVER, NO CHILLS. REPORTS NO PAIN. CEF INFUXING AT THIS TIME. CALL LIGHT WITHIN REACH. WATER REFRESHED. MIDLINE IN RIGHT UPPER ARM FLUSHES WEL..
--- NOTE | 2017-10-30 22:29 | NUR ---
PT OOB TO WALK HALLS WITH BOOT ON LEFT FOOT AND FWW. FAMILY MEMBER ASSISTED. PT TOLERATED WELL. REPORTS NO PAIN. PT ABLE TO DO 1 LAP ON MED/SURG.
--- NOTE | 2017-10-31 00:15 | NUR ---
PT APPEARS TO BE SLEEPING. ANTIBIOTICS INFUSING. RESPIRATIONS ARE EQUAL AND UNLABORED. LEFT FOOT ELEVATED. CALL LIGHT WITHIN REACH.
--- NOTE | 2017-10-31 01:56 | NUR ---
ANTIBIOTIC INFUSING. PT APPEARS TO BE SLEEPING. LEFT FOOT ELEVATED. CALL [facility].
--- NOTE | 2017-10-31 04:21 | NUR ---
PT APPEARS TO BE SLEEPING. LEFT LEG ELEVATED. RESPIRATIONS ARE EQUAL AND NONLABORED. CALL LIGHT WITHIN REACH. ANTIBIOTICS INFUSING,.
--- NOTE | 2017-10-31 05:44 | NUR ---
PT SLEPT THROUOUGHT THE NIGHT. CEF ABX. BS 235. 7 UNITS GIVEN. LEFT FOOT DRESSING CHAGE Q DAY. NO PAIN. DIABETIC NEUROPATHY. BOOT ON LEFT FOOT AND FWW SBA. POTASSIUM AND MAG LOW. MIDLINE ON RIGHT ARM. FLUSHES WELL. ADA DIET. OUTPUT QS. SMALL HARD BM LAST NIGHT. PT WALKED HALLS. VSS. PLAN FOR SWING 2 WEEKS ABX TREATMENT. PLAN ALSO TO STABALIZE ELECTROLYTES AND BLOOD SUGARS.
--- NOTE | 2017-10-31 08:10 | NUR ---
PATIENT DENIES PAIN. PATIENT REMAINS IN BED LISTENING TO MUSIC. MIDLINE FLUSHES WELL WITH 5ML HEPARIN FLUSH. PATIENT GETTING UP TO TAKE A SHOWER.
--- NOTE | 2017-10-31 08:27 | NUR ---
DID PATIENT'S BLOOD SUGAR CHECK. SET HIM UP FOR A SHOWER.
--- NOTE | 2017-10-31 10:55 | NUR ---
AROUND 0830 THIS MORNING PATIENT TOOK A SHOWER. SHAMPOODED HIS HAIR. I CHANGED HIS BED LINENS.
--- NOTE | 2017-10-31 12:00 | NUR ---
DID PATIENT'S BLOOD SUGAR CHECK. REFILLING HIS ICE WATER GLASS.
--- NOTE | 2017-10-31 15:12 | NUR ---
PATIENT BEING VISITED BY . IS DEBRIDING PATIENT'S LEFT FOOT ULCERATIONS AT THIS TIME.
--- NOTE | 2017-10-31 17:40 | NUR ---
5 UNITS NOVALOG GIVEN FOR CBG OF 200. INSULIN WITNESSED BY BETHANY SANABRIA AND BETHANY ANTONIO.
--- NOTE | 2017-10-31 19:25 | NUR ---
PATIENT HAS HAD A GOOD DAY. PATIENT EATING AND TAKING IN PO FLUIDS WELL. TOOK A SHOWER THIS AM AND WOUNDS ON LEFT FOOD CLEANSED AND REDRESSED. NO C/O PAIN. MIDLINE CONTINUES TO FLUSH AND DRAW WELL AND HAS KVO FLUID AT 25MLS/HR RUNNING BETWEEN ANTIBIOTICS. CAME IN AND DID DEBRIDEMENT TO THE LEFT FOOT AND REDRESSED IT AGAIN. PATIENT THEN UP WALKING IN HIS THERAPY BOOT AROUND THE MED/SURG FLOOR THIS AFTERNOON. LUNGS CLEAR BOWEL TONES ACTIVE AND PATIENT HAS HAD A BM TODAY.
--- NOTE | 2017-10-31 20:00 | NUR ---
ASSISTED PATIENT TO BATHROOM WITH SBA. TOLERATING AMBULATION WELL, GAIT IS STEADY, REQUIRES NO ASSISTANCE. DENIES FURTHER NEEDS. CALL LIGHT WITHIN REACH.
--- NOTE | 2017-10-31 21:16 | NUR ---
PATIENT RESTING IN BED, BREATHING IS EVEN AND UNLABORED. DENIES NEEDS AT THIS TIME. ASSESSMENT DONE, MEDICATIONS GIVEN. CALL LIGHT WITHIN REACH.
--- NOTE | 2017-10-31 21:32 | NUR ---
PATIENT AMBULATING INDEPENDENTLY IN HALLS.
--- NOTE | 2017-10-31 22:43 | NUR ---
PATIENT RESTING IN BED, BREATHING IS EVEN AND UNLABORED. DENIES NEEDS AT THIS TIME. CALL LIGHT WITHIN REACH.
--- NOTE | 2017-11-01 01:39 | NUR ---
patient resting in bed comfortably, breathing is even and unlabored. FLACC score of 0. call light within reach.
--- NOTE | 2017-11-01 04:36 | NUR ---
PATIENT'S NIGHT WAS UNEVENTFUL. HE HAS BEEN RESTING THROUGHOUT SHIFT. VSS, URINE OUTPUT QS, NO COMPLAINTS OF PAIN. DRESSING TO LEFT FOOT CDI. PATIENT REPORTS THAT HE HAD SIGNIFICANT BOWEL MOVEMENT AT BEGINNING OF SHIFT. HE IS A SBA WITH BOOT FOR AMBULATION. HAS MIDLINE IN RIGHT ARM, FLUSHES WELL, GOOD BLOOD RETURN. NO ACUTE CHANGES FROM BEGINNING OF SHIFT.
--- NOTE | 2017-11-01 04:47 | NUR ---
PATIENT RESTING COMFORTABLY IN BED, BREATHING IS EVEN AND UNLABORED. FLACC SCORE OF 0. CALL LIGHT WITHIN REACH.
--- NOTE | 2017-11-01 05:46 | NUR ---
PATIENT RESTING IN BED, BREATHING IS EVEN AND UNLABORED. DENIES PAIN AT THIS TIME. NO NEEDS. CALL LIGHT WITHIN REACH.
--- NOTE | 2017-11-01 06:00 | NUR ---
PATIENT RESTING IN BED, BREATHING IS EVEN AND UNLABORED. DENIES PAIN AT THIS TIME. NO NEEDS. CALL LIGHT WITHIN REACH.
--- NOTE | 2017-11-01 07:30 | NUR ---
PATIENT SITTING AT EDGE OF BED READY TO GO FOR A WALK WITH LEFT BOOT ON FOOT. ROOM PICKED UP. FRESH ICE WATER GIVEN. PATIENT WOULD LIKE TO SHOWER AFTER 0800 ANTIBIOTICS ARE FINISHED. NO OTHER NEEDS AT THIS TIME.
--- NOTE | 2017-11-01 08:31 | NUR ---
PT CALL LIGHT ON. PT WOULD LIKE TO GET UP FOR SHOWER. FURRIER APPRENTICE'S AT BEDSIDE. MORNING MEDICATIONS DUE. GIVEN ORDERED (SEE MAR). ABX TO BE GIVEN WHEN SHOWER IS COMPLETE. MID LINE ASSESSED, WNL. SALINE LOCKED FOR SHOWER, OTHER NEVES CONTINUOUS INFUSION. ASSESSEMENT DONE. PT UP FOR SHOWER, MID LINE AND BOOT COVERED FOR SHOWER. FURRIER APPRENTICE REMAINS AT BEDSIDE FOR LINEN CHANGE AND HELP WITH SHOWER. CALL LIGHT WITHIN REACH.
--- NOTE | 2017-11-01 09:06 | NUR ---
PT FINISHED WITH SHOWER. IV ABX STARTED ORDERED (SEE MAR). PT SITTING ON EDGE OF BED, PLAYING ON PHONE AND LISTENING TO MUSIC. NO REQUESTS OR COMPLAINTS AT THIS TIME. CALL LIGHT WITHIN REACH.
--- NOTE | 2017-11-01 09:12 | NUR ---
This DIRECTOR PERSONAL assisted patient up to shower. Patient showered indepently. Linens changed, patient given clean gown. RN in room. Call light in reach. No other needs at this time.
--- NOTE | 2017-11-01 09:39 | NUR ---
PATIENT RESTING IN BED, LISTENING TO MUSIC. CALL LIGHT IN REACH. NO OTHER NEEDS AT THIS TIME.
--- NOTE | 2017-11-01 09:42 | NUR ---
THIS RN AND INSURANCE CLAIMS SUPERVISOR CALLED DR. ANA LAURA DOUGHERTY'S OFFICE TO CLARIFY DRESSING CHANGE ORDER. MD STATES DRESSING WILL BE CHANGED BY HIM ON AND SHOULD NOT BE TOUCHED UNTIL THAT TIME. MUPIROCIN OINTMENT DOCUMENTED NOT GIVEN. PHARAMCY INFOMRED. NEW DRESSING ORDER PLACED IN CHART BY INSURANCE CLAIMS SUPERVISOR. PT UPDATED REGARDING PLAN OF CARE. NO REQUESTS OR COMPLAINTS AT THIS TIME. CALL LIGHT WITHIN REACH.
--- NOTE | 2017-11-01 10:17 | NUR ---
PT CALL LIGHT ON. PETROPHYSICAL ENGINEER REPORTS PT IS FEELING NAUSEATED. THIS RN TO BEDSIDE. PT ANXIOUS ABOUT CALLING HER FRIEND. PT ASSISTED WITH TELEPHONE. AFTER PHONE CALL PT ASKED ABOUT PAIN AND NAUSEA. PT REPORTS 2/10 PAIN AND STATES SHE IS NAUSATED. SEE MAR FOR MEDICATION GIVEN. PETROPHYSICAL ENGINEER WORKING WITH PT.
--- NOTE | 2017-11-01 10:50 | NUR ---
PT CALL LIGHT ON. PT REQUESTS ASSISTANCE UP TO RESTROOM. PT ASSISTED AND FWW USED. PT ABLE TO VOID AND HAVE BM WITHOUT ISSUE. ASSISTED BACK TO BED. TOOTH BRUSH AND MOUTH WASH PROVIDED. BM WAS LOOSE BROWN STOOL. PT STATES HE HAS NO REQUESTS OR COMPLAINTS AT THIS TIME. CALL LIGHT WITHIN REACH.
== END 2017-11-01 11:00 | disposition swing bed (61) | DRG 854 ==
LOC: ED 10:47 → CCU 13:29 → MS 10-27 15:55
PROVIDERS: ADMIT Internal Medicine
PROC: 05HY33Z Insertion of Infusion Device into Upper Vein, Percutaneous Approach (ICD-10-PCS; 2017-10-30)
PROC: 0JBR0ZZ Excision of Left Foot Subcutaneous Tissue and Fascia, Open Approach (ICD-10-PCS; principal; 2017-11-01)
DX: A41.52 Sepsis due to Pseudomonas (principal); L03.116 Cellulitis of left lower limb; A41.01 Sepsis due to Methicillin susceptible Staphylococcus aureus; E11.628 Type 2 diabetes mellitus with other skin complications; E11.42 Type 2 diabetes mellitus with diabetic polyneuropathy; L97.522 Non-pressure chronic ulcer of other part of left foot with fat layer exposed; E11.621 Type 2 diabetes mellitus with foot ulcer; E83.42 Hypomagnesemia; E87.6 Hypokalemia; E78.5 Hyperlipidemia, unspecified; Z91.11 Patient's noncompliance with dietary regimen; Z88.1 Allergy status to other antibiotic agents; Z88.0 Allergy status to penicillin; Z79.82 Long term (current) use of aspirin; Z79.4 Long term (current) use of insulin; Z79.899 Other long term (current) drug therapy
CPT/HCPCS: 36415; 71045; 73630; 73723; 80048; 80053; 80202; 81001; 83036; 83605; 83735; 85025; 87040; 87070; 87077; 87186; 87205; A9579; J0692; J1650; J3010; J3370; J3475; J7030; J7040; J7050

== ENCOUNTER 2017-11-01 11:00 | Inpatient (IN) | payer MEDICARE, OTHER, MEDICAID ==
[~2017-11-01] VITALS: Ht 177.8 cm; Wt 93.3 kg
--- OUTSIDE RECORDS SUMMARY | ~2017-11-01 | XMS | Clinical Summary ---
Demographics + + + | Address | [address] | | | [place] [address] | + + + | Home Phone | | + + + | Preferred Language | Unknown | + + + | Marital Status | Unknown | + + + | Synagogue Affiliation | Unknown | + + + | Race | Unknown | + + + | Ethnic Group | Unknown | + + + Author + + + | Author | [facility] | | | and [place] | + + + | Organization | [facility] | | | [...] Team Providers + +------+ + | Care Allergy Specialist Name | Role | Phone | + [...] | Self | [birth year] Home: | [address] | | | [place] | | [phone] | [phone] | [place] | | | geraldo | | | [phone] | [phone] | + +--------+ +--------+ + +
--- OUTSIDE RECORDS SUMMARY | ~2017-11-01 | XMS | Clinical Summary ---
Demographics + + + | Address | [address] | | | [place] [address] | + + + | Home Phone | | + + + | Preferred Language | Unknown | + + + | Marital Status | Single | + + + | Pentecostalism Affiliation | Unknown | + + + | Race | Unknown | + + + | Ethnic Group | Unknown | + + + Author + + + | Author | [facility] | + + + | Organization | [facility] | + + + | Address [...] Team Providers + +------+ + | Care Emergency Preparedness Manager Name | Role | Phone | + +------+ + | Sona [place] DIRECT SUPPORT STAFF | PP | | + +------+ + [...] RE | | | | [place] [address] | | | IP-OP | | | | | + +--------+ +------+-------+ + | [facility] | YELLOW | [phone] | | [...] | Self | [birth year] | Home: | [address] | | | al/Fam | | [phone] | [phone] | [place] | | | g[place]do | | | [phone] | [phone] | + +--------+ +--------+ + +
--- OUTSIDE RECORDS SUMMARY | ~2017-11-01 | XMS | Clinical Summary ---
Demographics + + + | Address | [address] | | | [place] [address] | + + + | Home Phone | | + + + | Preferred Language | Unknown | + + + | Marital Status | Single | + + + | Mandaeism Affiliation | Unknown | + + + [...] + | [place] | E[place] | [address] | | | | | [place], | | | | | [place] [address] | | + + + + + Care Team Providers + +------+ + | Care Scrap Iron Cutter Name | Role | Phone | + +------+ + PP | Unavailable | + +------+ + Source Comments TALYA is fully live on both [facility] and [facility] Allergies No Known Allergies Current [...]
--- NOTE | 2017-11-01 11:30 | NUR ---
PT TRANSFERED TO SWING BED. ASSESSMENT DONE. CBG TAKEN. INSULIN GIVEN ORDERED (SEE MAR). PT EATING LUNCH AND READING PAPER. PT STATES HE HAS NO REQUESTS OR COMPLAINTS AT THIS TIME. CALL LIGHT WITHIN REACH.
--- NOTE | 2017-11-01 12:08 | NUR ---
PATIENT SITTING ON THE EDGE OF BED. PATIENT JUST FINISHED LUNCH. NO OTHER NEEDS AT THIS TIME.
--- NOTE | 2017-11-01 13:11 | NUR ---
PT NOW SWING BED STATUS, SITTING ON SIDE OF BED FINISHING UP LUNCH. PT STATES THAT HE FEELS GOOD, JUST TRYING TO GET WELL ENOUGH TO BE DC'D. PT REQUESTED NEWSPAPER, WILL HAVE SUMMER TRY TO GET HIM ONE REGULARLY TO PT. EXTENDED A BLESSING, WILL FOLLOW NEEDED
--- NOTE | 2017-11-01 13:51 | NUR ---
ABX DUE. THIS RN TO BEDSIDE. PT PLAYING ON PHONE AND LISTENING TO MUSIC. ABX GIVEN (SEE MAR). INFUSING VIA IV PUMP. PT STATES HE HAS NO REQUESTS OR COMPLAINTS AT THIS TIME. CALL LIGHT WITHIN REACH.
--- NOTE | 2017-11-01 14:55 | NUR ---
PATIENT RESTING IN BED WITH EYES CLOSED AND MUSIC PLAYING OFF HIS PHONE.
--- NOTE | 2017-11-01 15:03 | NUR ---
PATIENT AMBULATING IN THE HALLWAY
--- NOTE | 2017-11-01 15:07 | NUR ---
PATIENT STATUS CHANGED TO SWG BED TODAY. FAXED [facility] SWING BED NOTIFICATION.
--- NOTE | 2017-11-01 17:10 | NUR ---
MEDICATION DUE. THIS RN TO BEDSIDE. PT JUST STARTING DINNER. INSULIN AND METFORMIN GIVEN (SEE MAR). PT SITTING ON EDGE OF BED. DENIES PAIN AND NAUSEA. PT REPORTS "FEELING PRETTY GOOD." DRESSING KATIE. PT VISITING WITH DAUGHTER. NO REQUESTS OR COMPLAINTS AT THIS TIME. CALL LIGHT WITHIN REACH.
--- NOTE | 2017-11-01 17:51 | NUR ---
PT TRANSITIONED TO SWING BED TODAY. PT REPORTS 0/10 PAIN ALL DAY. DRESSING TO REMAIN UNTOUCHED UNTIL DR. BRUNO COMES ON FOR DRESSING CHANGE. BLOOD SUGAR CHECKS, ADA DIET. MIDLINE FOR CEFEPIME AND TKO. PT SHOWERED AND AMBULATED TODAY, WITH WALKER, ABNER ON LEFT FOOT. USING CALL LIGHT APPROPRIATLY.
--- NOTE | 2017-11-01 18:07 | NUR ---
PATIENT RESTING IN BED. FAMILY IN ROOM. FRESH ICE WATER AT BEDSIDE TABLE. CALL LIGHT IN REACH. NO OTHER NEEDS AT THIS TIME.
--- NOTE | 2017-11-01 19:10 | NUR ---
RECEIVED REPORT FROM DAY SHIFT RN. PATIENT IS RESTING IN BED WATCHING TV. PATIENT DENIES ANY NEEDS. CALL LIGHT IN REACH.
--- NOTE | 2017-11-01 20:40 | NUR ---
PATIENT ASSESMENT COMPLETED. PATIENTS EVENING MEDICATIONS GIVEN PER ORDER. PATIENTS DRESSING ON LEFT FOOT IS C/D/I, NO DRAINAGE NOTED. PATIENT IS AAOX3 AND DENIES ANY PAIN AT THIS TIME. PATIENT DENIES ANY NEEDS. CALL LIGHT IN REACH. VITALS TAKEN AND RECORDED.
--- NOTE | 2017-11-01 22:30 | NUR ---
PATIENT UP AMBULATING IN THE HALLWAY. PATIENT IS STEADY ON HIS FEET. NO NEEDS NOTED.
--- NOTE | 2017-11-01 23:02 | NUR ---
PATIENT IS BACK IN BED RESTING SFTER COMPLETING MULTIPLE LAPS WITH BOOT ON. PATIENT HAS VISITORS AT THIS TIME. NO NEEDS NOTED. CALL LIGHT IN REACH.
--- NOTE | 2017-11-02 01:51 | NUR ---
PATIENTS IV ABX GIVEN PER ORDER. PATIENT IS RESTING IN BED WITH EYES CLOSED. PATIENTS BREATHING IS EVEN AND UNLABORED, RR 16. CALL LIGHTIN REACH.
--- NOTE | 2017-11-02 03:56 | NUR ---
PATIENT IS RESTING IN BED WITH EYES CLOSED, RR 16. CALL LIGHT IN REACH.
--- NOTE | 2017-11-02 05:01 | NUR ---
PATIENT RESTED WELL THROUGHTOUT THE SHIFT. PATIENT IS ON AN ADA DIET. PATIENT HAS A RIGHT MIDLINE THAT IS TKO. PATIENT HAS A DRESSING ON HIS LEFT FOOT THAT IS C/D/I. PATIENT HAS BOOT ON WHEN AMBULATING. PATIENT IS SWING BED. PATIENT AMBUALTED MULTIPLE LAPS IN THE HALLWAY. PATIENT IS STEADY ON HIS FEET. PATIENT USE CALL LIGHT APPROPRIATELY. PATIENT IS AAOX3.
--- NOTE | 2017-11-02 05:54 | NUR ---
PATIENTS URINAL EMPTIED. INTAKE AND OUPUT RECORDED. PATIENT DENIES ANY NEEDS. CALL LIGHT IN REACH.
--- NOTE | 2017-11-02 08:17 | NUR ---
DAVID CARY IN ROOM WITH STUDENT NURSE.
--- NOTE | 2017-11-02 08:34 | NUR ---
MORNING ASSESSMENT AND MEDICATIONS DUE. THIS RN TO BEDSIDE. PT UP TO BEDSIDE EATING BREAKFAST. EDUCATION DONE R/T FOOD CHOICES AND CARBOHYDRATES INFLUANCE ON BLOOD SUGAR. PT RECEPTIVE BUT STATES "I JUST EAT WHATEVER I THINK TASTES GOOD." ASSESSMENT DONE. MEDICATIONS GIVEN ORDERED (SEE MAR). PT REFUSED MIRALAX AND SENNA R/T LOOSE STOOLS. MID LINE ASSESSED. BRISK BLOOD RETURN NOTED. IV ABX INFUSING VIA IV PUMP. PT REMAINS AT BEDSIDE. NO REQUESTS OR COMPLAINTS AT THIS TIME. CALL LIGHT WITHIN REACH.
--- NOTE | 2017-11-02 08:37 | NUR ---
PATIENT SITTING ON SIDE OF BED. RN AND STUDENT NURSE IN ROOM.
--- NOTE | 2017-11-02 11:00 | NUR ---
STUDENT NURSE IN ROOM FOR VITALS.
--- NOTE | 2017-11-02 11:56 | NUR ---
INSULIN DUE. THIS RN TO BEDSIDE. PT EATING LUNCH. NO REQUESTS OR COMPLAINTS. PT WOULD LIKE TO SHOWER "AFTER THE ANITBIOTIC IS DONE." PT ADVISED TO CALL FOR ASSISTANCE AT 1245 WHEN HIS INFUSION WILL BE COMPLETE AND HE CAN BE SALINE LOCKED AT THAT TIME FOR A SHOWER. PT IS AGREEABLE TO THIS PLAN. CALL LIGHT WITHIN REACH.
--- NOTE | 2017-11-02 12:50 | NUR ---
PT CALL LIGHT ON. PT REQUESTS TO BE SALINE LOCKED FOR SHOWERING. THIS RN TO BEDSIDE. MID LINE ASSESSED, WNL. BLOOD RETURN NOTED. PIV SALINE LOCKED. ALCOHOL CAP APPLIED. PIV COVERED FOR SHOWER. LEG BANDAGE COVERED FOR SHOWER. PT ASSISTED TO BATHROOM. SHAMPOO, TOWELS AND GOWN IN PLACE. PT SITTING ON SHOWER CHAIR. STUDENT NURSE AND TELECOMMUNICATIONS FIELD TECHNICIAN AT BEDSIDE TO ASSIST PT NEEDED AND DO LINEN CHANGE. PT STATES HE HAS NO FURTHER REQUESTS OR COMPLAINTS. PT VERBALIZES UNDERSTANDING OF CALL LIGHT PLACEMENT AND USE.
--- NOTE | 2017-11-02 14:16 | NUR ---
AFTERNOON ABX DUE. THIS RN TO BEDSIDE. PT ASSITED UP TO BATHROOM, JUST RETURNING FROM "A WALK." BOOT IN PLACE. MID LINE ASSESSED. WNL, BRISK BLOOD RETURN NOTED. ABX HUNG, INFUSING VIA IV PUMP . PT LISTENING TO MUSIC. NO REQUESTS OR COMPLAINTS AT THIS TIME. CALL LIGHT WITHIN REACH.
--- NOTE | 2017-11-02 14:23 | NUR ---
PT STATES "I JUST WANT TO GO HOME." PT EDUCATION DONE R/T ABX INFUSIONS AND NEED FOR BLOOD SUGAR CONTORL FOR HEALING OF FOOT ULCERS. PT VERBALIZES UNDERSTANDING THAT THIS IS WHY HE IS STILL HERE AT THE HOSPITAL. PT OFFERED THE CHANCE TO LEARN MORE ABOUT DIABETES AND HOW TO CONTROL BLOOD SURGARS. PT STATES "NO, I DON'T WANT TO LEARN ABOUT IT." PT ADVIXED THAT HE CAN ASK ANY TIME IF HE WOULD LIKE TO KNOW MORE. CALL LIGHT WITHIN REACH.
--- NOTE | 2017-11-02 14:31 | NUR ---
STOPPED IN TO CHECK ON PATIENT SINCE HE HAS TYPE 2 DM. HE HAS HAD DIABETES "FOR QUITE AWHILE." HE STATES HE HAS NOT TAKEN DIABETES CLASSES AT [facility]. HE USUALLY EATS 2 MEALS DAILY, SOMETIMES SNACKS ON SUNFLOWER SEEDS. HE OFTEN DOES NOT EAT BREAKFAST. HE SOMETIMES GETS SHAKY IF HE HASN'T EATEN. HE EATS WHAT HE WANTS WITHOUT THINKING ABOUT BLOOD SUGAR CONTROL. HE IS NOT INTERESTED IN FURTHER DIABETES EDUCATION AT THIS TIME. WILL REMAIN AVAILABLE IF NEEDED.
--- NOTE | 2017-11-02 16:51 | NUR ---
Patient resting in bed. Call light in reach. Fresh ice water at bedside table. No other needs at this time.
--- NOTE | 2017-11-02 17:13 | NUR ---
INSULIN DUE. THIS RN TO BEDSIDE. PT PLAYING ON PHONE, DINNER AT BEDSIDE. MEDICAITON GIVEN ORDERED (SEE MAR). PT UP TO EDGE OF BED. PT DENIES PAIN AND REPORTS THAT "EVERYTHING FEELS GOOD." NEW GOWN PROVIDED PER PT REQUEST ("i DON'T LIKE THE GOWNS WITH VELCRO"). NO ADDITIONAL REQUESTS OR COMPLAINTS AT THIS TIME. CALL LIGHT WITHIN REACH.
--- NOTE | 2017-11-02 18:58 | NUR ---
PT HERE FOR DIABETIC FOOT ULCER CONTROL AND IV ABX. SWING BED AT THIS TIME. IV ABX GIVEN X2 THROUGH MID LINE. PICC LINE DRESSING CHANGE LAST NIGHT. DR BRUNO TO COME TOMORROW FOR DRESSING CHANGE TO LEFT FOOT. PT SHOWERED TODAY AND AMBULATED WITH BOOT X3. BLOOD SUGARS IRRADIC. SLIDING SCALE AND SCHEDULED INSULIN. PT USING CALL LIGHT APPROPRIATLY.
--- NOTE | 2017-11-02 20:05 | NUR ---
RECEIVED REPORT FROM DAY SHIFT RN. PATIENT IS RESTING IN BED VISITING WITH FAMILY. NO NEEDS NOTED. CALL LIGHT IN REACH.
--- NOTE | 2017-11-02 20:55 | NUR ---
PATIENT ASSESMENT COMPLETED. PATIENTS EVENING MEDCIATIONS GIVEN PER ORDER. PATIENT DENIES ANY PAIN AT THIS TIME. PATIENT IS INDEPENDENT AND IS STEADY ON HIS FEET. PATIENT DENIES ANY FURTHER NEEDS AT THIS TIME. CALL LIGHT IN REACH.
--- NOTE | 2017-11-02 22:55 | NUR ---
PATIENT UP AMBULATING IN THE HALLWAY. PATIENT COMPLETED X3 LAPS. PATIENT DENIES ANY PAIN AT THIS TIME. NO NEEDS NOTED. CALL LIGHT IN REACH.
--- NOTE | 2017-11-03 01:42 | NUR ---
PATIENT IS RESTING IN BED WITH EYES CLOSED. BREATHING IS EVEN AND UNLABORED, RR 16. CALL LIGHT IN REACH.
--- NOTE | 2017-11-03 03:49 | NUR ---
PATIENT IS RESTING IN BED WITH EYES CLOSED. RR 17. CALL LIGHTIN REACH.
--- NOTE | 2017-11-03 05:26 | NUR ---
PATIENT RESTED WELL THROUGHTOUT THE SHIFT. PATIENT IS ON AN ADA DIET. PATIENT HAS A RIGHT MIDLINE THAT IS TKO. PATIENT HAS A DRESSING ON HIS LEFT FOOT THAT IS C/D/I. PATIENT HAS BOOT ON WHEN AMBULATING. PATIENT IS SWING BED. PATIENT AMBUALTED MULTIPLE LAPS IN THE HALLWAY. PATIENT IS STEADY ON HIS FEET. PATIENT USE CALL LIGHT APPROPRIATELY. PATIENT IS AAOX3. PATIENT HAS BOOT ON WHEN UP OUT OF BED. URINE OUTPUT IS QS.
--- NOTE | 2017-11-03 05:58 | NUR ---
PATIENT IS SITTING ON THE EDGE OF THE BED. URINAL EMPTIED PER REQUEST. PATIENT DENIES ANY FURTHER NEEDS. CALL LIGHT IN REACH.
--- NOTE | 2017-11-03 08:06 | NUR ---
PATIENT REPORT RECEIVED FROM LUCINA SIMS AT THIS TIME. PATIENT IS ALERT AND ORIENTED AND SITTING UP AT THE SIDE OF THE BED. HE VOIDED 300MLS OF CLEAR YELLOW URINE. AM MEDICATION PASSED. DRESSING TO THE LEFT FOOT IS INTACT. NO DRAINAGE NOTED.
--- NOTE | 2017-11-03 09:30 | NUR ---
PATIENT UP AMBULATING IN THE HALLWAY WITH HIS BOOT OVER THE DRESSING.
--- NOTE | 2017-11-03 10:11 | NUR ---
PATIENT RESTING IN BED LISTING TO MUSIC. PATIENT WILL CALL WHEN HE'S READY TO SHOWER. CALL BUTTON IN REACH. NO OTHER NEEDS AT THIS TIME.
--- NOTE | 2017-11-03 11:00 | NUR ---
PATIENT RESTING IN BED. THIS TELEPHONE INSTRUMENT SUPERVISOR TALKED TO PATIENT ABOUT A SHOWER. PATIENT STATES THAT HE WILL CALL WHEN HE IS READY
--- NOTE | 2017-11-03 11:46 | NUR ---
BLOOD GLUCOSE LEVEL WAS 155, UNITS OF INSULIN GIVEN SQ AT THIS TIME
--- NOTE | 2017-11-03 13:20 | NUR ---
DOCTOR KIANA CAME TO SEE THE PATIENT AND CHANGE THE LEFT FOOT DRESSING. DRESSING CAN STAY ON UNTIL DISCHARGE ON WEDNESDAY IF THAT IS WHEN HE GOES HOME. PATIENT TOLERATED DRESSING CHANGE WELL. NO C/O PAIN.
--- NOTE | 2017-11-03 14:17 | NUR ---
PT RESTING IN BED-WATCHING TV. HE ALWAYS HAS A BIG SMILE, AND MENTIONED THAT HE HAS BEEN UP WALKING-SEEMS TO MAKE AN IMPACT ON HIM. SHOOK MY HAND, THANKED ME FOR COMING BY. EXTENDED A BLESSING, WILL FOLLOW NEEDED
--- NOTE | 2017-11-03 15:56 | NUR ---
PATIENT AMBULATING IN THE HALLWAY.
--- NOTE | 2017-11-03 16:33 | NUR ---
PATIENT HAS BEEN UP AMBULATING IN THE HALLWAY TODAY MULTIPLE TIMES WITH HIS WALKING BOOT. HE REMAINS STEADY ON HIS FEET. HE WILL BE STAYING AT THE HOSPITAL UNTIL WEDNESDAY AND NEEDS TO FOLLOW UP WITH DOCTOR CONTEH AT THE [facility] TO HAVE HIS DRESSING CHANGED NEXT THEN. THE DRESSING WAS CHANGED TODAY BY DOCTOR BRUNO AND NO DEBRIDMENT NEEDED TO BE DONE. HE HAS HAD NO C/O PAIN TODAY AND REMAINS ON IV CEFEPIME.
--- NOTE | 2017-11-03 20:06 | NUR ---
RECEIVED REPORT FROM CHUY LEACH RN. PATIENT IS RESTING IN BED. FAMILY IN THE ROOM. NO NEEDS NOTED. CALL LIGHT IN REACH.
--- NOTE | 2017-11-03 21:52 | NUR ---
PATIENT ASSESEMENT COMPLETED. PATIENTS EVENING MEDCIATIONS GIVEN PER ORDER. PATIENT DENIES ANY PAIN. PATIENTS URINAL EMPTIED. PATIENTS DRESSING IS C/D/I. PATIENT DENIES ANY FURTHER NEEDS AT THIS TIME. PATIENT REMAINS INDEPENDENT IN THE ROOM. CALL LIGHT IN REACH.
--- NOTE | 2017-11-03 23:04 | NUR ---
PATIENT IS RESTING IN BED WITH EYES CLOSED, RR 17. CALL LIGHT IN REACH.
--- NOTE | 2017-11-04 01:17 | NUR ---
PATIENT UP AMBULATING IN THE HALLWAY. PATIENT IS STEADY ON HIS FEET. PATIENT REMAINS INDPENDENT. NO NEEDS NOTED.
--- NOTE | 2017-11-04 02:31 | NUR ---
PATIENT IS IN BED RESTING AND WATCHING TV. PATIENT DENIES ANY PAIN. 0200 IV ABX ADMINISTERED PER ORDER. PATIENTS URINAL DUMPED. NO FURTHER NEEDS NOTED. CALL LIGHT IN REACH.
--- NOTE | 2017-11-04 06:50 | NUR ---
ABX COMPLETED. PATIENT IS NOW SL. URINAL EMPTIED. NO NEEDS NOTED. CALL LIGHTIN REACH.
--- NOTE | 2017-11-04 07:47 | NUR ---
PATIENT UP IN . INFORMED HIM, BETHANY LAZAR WOULD LIKE FOR HIM TO WAIT FOR AFTER BREAKFAST TO SHOWER. PATIENT AMBULATING HALLS. LINENS CHANGED AND ROOM TIDIED. FRESH ICE ATER GIVEN.
--- NOTE | 2017-11-04 07:47 | NUR ---
BEDSIDE REPORT RECEIVED FROM LUCINA. PATIENT RESTING IN BED. NO COMPLAINTS. CALL LIGHT IN REACH.
--- NOTE | 2017-11-04 08:30 | NUR ---
Went to patient's room to check his CBG prior to medication administraion. Adjusted patient's insulin dose for CBG reading per protocol. Administered 0800 medications, and 0900 Levemir. Prepared patient for shower and left him to bathe on his own. Waiting to start anyibiotic until after shower.
--- NOTE | 2017-11-04 08:59 | NUR ---
PATIENT WAS UP WALKING IN THE HALLWAY. DENIED PAIN. REPORT BEING STIFF FROM LOWER BACK WHEN WALKING TOO MUCH. PATIENT ASSISTED TO SHOWER. MORNING MED GIVEN. IV SITE PATENT AND IV ABX STARTED. CALL LIGHT IN REACH.
--- NOTE | 2017-11-04 09:52 | NUR ---
This is a midline
--- NOTE | 2017-11-04 10:40 | NUR ---
PATIENT RESTING IN THE CHAIR. NO COMPLAINTS AT THIS TIME. FRESH WATER GIVEN.
--- NOTE | 2017-11-04 11:11 | NUR ---
Assisted patient from chair to bed, legs propped up with pillows to assist with circulation. Antibiotics infusing. Patient resting comfortably.
--- NOTE | 2017-11-04 12:12 | NUR ---
Went into patient's room to check CBG and administer Insulin scheduled dose plus sliding scale dose per protocol. Patient alert and oriented, sitting upright, and finishing his lunch.
--- NOTE | 2017-11-04 13:26 | NUR ---
PUMP ALARMING, INFUSION COMPLETE. THIS RN CALLED TO BEDSIDE TO ASSIST STUDENT. MID LINE FLUSHED, BLOOD RETURN NOTED. ALCOHOL CAP APPLIED. PT RESTING IN BED. NO REQUESTS OR COMPLAINTS AT THIS TIME.
--- NOTE | 2017-11-04 14:37 | NUR ---
CONNECTED WITH PT HE WAS WALKING AROUND IN THE HALLS. VERY PLEASANT, IMPROVING. EXTENDED A BLESSING -WILL CONTINUE TO FOLLOW NEEDED
--- NOTE | 2017-11-04 14:55 | NUR ---
PATIENT LYING ON BED, LOOKING AT CELLPHONE. FRESH ICE WATER IN CUP. CALL LIGHT IN REACH NO OTHER NEEDS.
--- NOTE | 2017-11-04 15:04 | NUR ---
Patient given snack of 2 lorena cracker packets around 1400, started 2nd IV antibiotic infusion. Patient given fresh ice water, 300 mLs. Patient resting comfortably with no further requests at this time.
--- NOTE | 2017-11-04 16:53 | NUR ---
PATIENT RESTING IN BED AT THIS TIME. HAD NO COMPLAINTS AT THIS TIME. IV ABX INFUSING. NO FURTHER REQUEST.
--- NOTE | 2017-11-04 18:05 | NUR ---
PATIENT AT EDGE OF BED DOING WORD PUZZLE. DINNER ON TABLE BEHIND HIM. CALL LIGHT IN REACH. I/OS DONE.NO OTHER NEEDS.
--- NOTE | 2017-11-04 18:50 | NUR ---
PATIENT HAD DONE WELL TODAY. HAD SHOWER. HAS BEEN UP AMBULATING IN THE HALLWAY MULTIPLE TIMES. MIDLINE WNL FLUSHED WELL AND GOOD BLOOD RETURN. IV ABX. NO FEVER. GOOD URINE OUTPUT.
--- NOTE | 2017-11-04 19:34 | NUR ---
BEDSIDE REPORT FROM MARILUZ SIMS PT RESTING IN BED WATCHING T.V., HE REPORTS NO PAIN AND NO REQUESTS AT THIS TIME.
--- NOTE | 2017-11-04 20:28 | NUR ---
charge nurse rounding note: sitting edge of bed visiting with family, no c/o pain, left foot dressing cdi, covered with gauze and coban. iv abx infusing
--- NOTE | 2017-11-04 21:12 | NUR ---
VITALS KEV&OS DONE AND CHARTED. PT NEEDS NOTHING ELSE AT THIS TIME.
--- NOTE | 2017-11-05 00:01 | NUR ---
PT UP AMBULATING IN HALLS INDEPENDENTLY.
--- NOTE | 2017-11-05 06:10 | NUR ---
PT HAS BEEN AWAKE MOST OF SHIFT, AMBULATING IN HALLS AND WATCHING T.V., HE REPORTS NO PAIN. NO ISSUES OVER SHIFT, GOOD BLOOD RETURN AT MIDLINE CATHETER H/L AT THIS TIME. PT INDEPENDENT IN ROOM/HALLS.UNEVENTFUL SHIFT
--- NOTE | 2017-11-05 08:07 | NUR ---
BEDSIDE REPORT RECEIVED FROM STEVE. PATIENT UP TO BATHROOM TO SHOWER. NO COMPLAINTS. SPAR MACHINE OPERATOR HELPER IN BATHROOM HELPING PATIENT AT THIS TIME.
--- NOTE | 2017-11-05 09:15 | NUR ---
Responded to pump alarm for the second time this morning, the pump notes "distal air" in the line. It did this yesterday as well. Patient had finished his breakfast and sitting up doing a crossword. Adressed the pump with Keniaene. Patient had no issues or concerns at this time.
--- NOTE | 2017-11-05 10:19 | NUR ---
Entered patient's room to obtain V/S, patient was sitting upright doing a crossword puzzle. After V/S obtained patient layed down to rest. Turned lights off, call device within reach, patient had no further requests at the time.
--- NOTE | 2017-11-05 12:31 | NUR ---
Patient ate ninety five percent of his lunch, sitting up reading the paper. IV infusing appropriately. Patient denies further needs at this time.
--- NOTE | 2017-11-05 18:23 | NUR ---
PATIENT HAD DONE WELL TODAY. HAD BEEN UP WALKING IN THE [address]. NO PAIN. DRESSING ON LEFT FOOT D/C/I. CHRONIC NUMBNESS AND TINGLING. IV ABX. MIDLINE WNL.
--- NOTE | 2017-11-05 19:00 | NUR ---
SHIFT REPORT RECEIVED. PATIENT'S IV ABX FINISHED. SALINE LOCK FOR NOW. HE IS RESTING IN BED WATCHING TV. DENIES ANY NEEDS.
--- NOTE | 2017-11-05 20:15 | NUR ---
PATIENT UP WALKING IN HALLWAY INDEPENDENTLY
--- NOTE | 2017-11-05 20:46 | NUR ---
VITALS AND I&OS DONE AND CHARTED. FRESH ICE WATER GIVEN. BEDSIDE TABLE AND CALL LIGHT WITHIN REACH. PT NEEDS NOTHING ELSE AT THIS TIME.
--- NOTE | 2017-11-05 22:00 | NUR ---
EVENING MEDS GIVEN BY PLATER APPRENTICE. PATIENT RESTING IN BED. DENIES PAIN. AAOX4. LUNGS ARE CLEAR. ON ROOM AIR. IV ABX INFUSING. DRESSING ON EFFECTED FOOT IS C/D/I. BOOT NOT ON AT THIS TIME. PATIENT DENIES ANY NEEDS AT THIS TIME.
--- NOTE | 2017-11-06 00:15 | NUR ---
PATIENT IN BED WATCHING TV. DENIES ANY NEEDS.
--- NOTE | 2017-11-06 02:00 | NUR ---
IV ABX STARTED BY CARRIAGE SETTER BECKY
--- NOTE | 2017-11-06 04:37 | NUR ---
PATIENT RESTING IN BED. APPEARS TO BE SLEEPING. RR 18. CALL LIGHT IN REACH.
--- NOTE | 2017-11-06 06:28 | NUR ---
PATIENT HAD UNEVENTFUL NIGHT. IV ABX VIA MIDLINE. NO PAIN. INDEPENDENT IN HALLWAY. BOOT TO AMBULATE.
--- NOTE | 2017-11-06 07:45 | NUR ---
SHIFT REPORT RECEIVED FROM JOEL. ASSUMING PATIENT'S CARE AT THIS TIME. PATIENT RESTING IN BED AWAKE ALERT AND ORIENTED. DENIES PAIN AT THIS TIME. PATIENT ABX DONE AND WAS SALINE LOCKED. DRESSING ON LEFT FOOT WNL. CALL LIGHT IN REACH.
--- NOTE | 2017-11-06 08:20 | NUR ---
PATIENT SITTING UP IN BED. CALL LIGHT WITHIN REACH. NO OTHER NEEDS AT THIS TIME.
--- NOTE | 2017-11-06 11:15 | NUR ---
PATIENT SITTING UP IN BED ON PHONE. CALL LIGHT WITHIN REACH. NO OTHER NEEDS AT THIS TIME.
--- NOTE | 2017-11-06 11:47 | NUR ---
PATIENT SITTING AT BEDSIDE, EATING LUNCH. PATIENT DENIES PAIN. CBG CHECK AND INSULIN GIVEN PER SLIDDING SCALE.
--- NOTE | 2017-11-06 14:20 | NUR ---
IN TO ROOM TO CHECK ON PATIENT AND STARTED ABX. PATIENT DENIES ANY PAIN. NO OTHER NEEDS AT THIS TIME.
--- NOTE | 2017-11-06 14:47 | NUR ---
PATIENT RESTING IN BED. PATIENTS FAMILY IN ROOM. CALL LIGHT WITHIN REACH. NO OTHER NEEDS AT THIS TIME.
--- NOTE | 2017-11-06 18:58 | NUR ---
PATIENT HAD DONE WELL TODAY. AMBULATED IN THE [place] MULTIPLE TIME. MIDLINE IV WNL AND FLUSHED WELL. IV ABX. DRESSING ON THE LEFT FOOT WNL. DENIES ANY PAIN FOR THIS SHIFT.
--- NOTE | 2017-11-06 19:01 | NUR ---
PATIENT RESTING IN BED. FRESH ICE WATER. CALL LIGHT WITHIN REACH. NO OTHER NEEDS AT THIS TIME.
--- NOTE | 2017-11-06 19:15 | NUR ---
SHIFT REPORT RECEIVED. PATIENT UP WALKING IN HALLWAY WITH FAMILY.
--- NOTE | 2017-11-06 20:30 | NUR ---
PATIENT RESTING IN ROOM. FAMILY HAS LEFT. IV ABX STARTED. MIDLINE FLUSHES WELL BUT DOES NOT RETURN BLOOD. SITE WNL. BLOOD GLUCOSE WITHIN RANGE. NO NOVOLOG REQUIRED PER ORDERS. PATIENT DENIES PAIN. NO NEEDS AT THIS TIME.
--- NOTE | 2017-11-06 21:15 | NUR ---
EVENING MEDS GIVEN. PATIENT REFUSED BOWEL CARE, HE HAS BEEN HAVING REGULAR BM. HE IS AAOX4. IN GOOD SPIRITS. EXCITED TO BE RETURNING HOME SOON. NO PAIN. LUNGS ARE CLEAR. ABD IS ROUND, SOFT, BOWEL SOUNDS ARE ACTIVE. THE DRESSING ON HIS LEFT FOOT IS C/D/I. PATIENT DENIES ANY CONCERNS. CALL LIGHT IN REACH.
--- NOTE | 2017-11-06 21:33 | NUR ---
VITALS AND I&OS DONE AND CHARTED. FRESH WATER GIVEN. BEDSIDE TABLE AND CALL LIGHT WITHIN REACH. PT NEEDS NOTHING ELSE AT THIS TIME.
--- NOTE | 2017-11-07 01:10 | NUR ---
IV PUMP ALARMING AT REGULAR INTERVALS, UNABLE TO FIX THE PROBLEM. NEW TUBING PRIMED. CONTINUED IV ABX. NO ALARM YET.
--- NOTE | 2017-11-07 02:50 | NUR ---
IV ABX STARTED PER ORDER. PATIENT HAD BEEN UP WALKING IN THE HALLS. HE IS HOPEFUL THAT HE WILL BE ABLE TO SLEEP NOW FOR A FEW HOURS. FRESH WATER PROVIDED. NO OTHER NEEDS AT THIS TIME.
--- NOTE | 2017-11-07 05:00 | NUR ---
PATIENT APPEARS TO BE SLEEPING. IV ABX INFUSING.
--- NOTE | 2017-11-07 06:25 | NUR ---
PATIENT WAS UP MOST OF THE NIGHT. SLEPT IN SMALL AMOUNTS. AMBULATED IN HALLS INDEPENDENTLY. IV ABX. MIDLINE FLUSHES WELL. SITE WNL. NO PAIN. DRESSING ON FOOT C/D/I.
--- NOTE | 2017-11-07 07:05 | NUR ---
HANDOFF REPORT RECIEVED FROM AIRLINE STATION AGENT RN. PT SLEEPING, LEFT UNDISTURBED.
--- NOTE | 2017-11-07 08:45 | NUR ---
PT RESTING IN BED. PT DENIES PAIN. PT ON ROOM AIR, LUNG SOUNDS CLEAR, DENIES SOB. PT BOWEL TONES ACTIVE, DENIES NAUSEA, TOLERATING ADA DIET, REPORT OF LOOSE STOOL OVER NIGHT, SENNA AND MIRALAX HELD. PT WITH NEUROPATHY TO BLE, UNABLE TO PALPABLE LEFT PEDAL PULSE DUE TO DRESSING, TOES WARM, CAP REFILL 2 SECONDS, WITHOUT EDEMA. MIDLINE FLUSHED, PATENT, IV CEFEPIME INFUSING. SS NOVOLOG HELD FOR BLOOD SUGAR OF 111, 6 UNITS NOVOLOG AND 20 UNITS LEVEMIR GIVEN. PT DENIES OTHER NEEDS AT THIS TIME. DISCUSSED PLAN OF CARE.
--- NOTE | 2017-11-07 08:49 | NUR ---
PATIENT SITTING UP ON SIDE OF BED. CALL LIGHT WITHIN REACH. FRESH ICE WATER. NO OTHER NEEDS AT THIS TIME.
--- NOTE | 2017-11-07 10:09 | NUR ---
PATIENT RESTING IN BED. TRUCK UNLOADER COREY STATES PATIENT TOOK A SHOWER, CLEAN LINEN AND A CLEAN GOWN ON. CALL LIGHT WITHIN REACH. NO OTHER NEEDS AT THIS TIME.
--- NOTE | 2017-11-07 11:58 | NUR ---
PT SITTING ON EDGE OF BED, EATING LUNCH. PT GIVEN 6 UNITS INSULIN AND 2 UNITS SS INSULIN. PT DENIES TOHER NEEDS AT THIS TIME.
[2017-11-07] MEDS ORDERED: LANTUS SOL100 UNIT/1 SQ (13:06)
[2017-11-07] MEDS ORDERED: NOVOLOG FL100 UNIT/1 SUB-Q (13:08)
--- NOTE | 2017-11-07 13:59 | NUR ---
PT COMPLAINT OF FEELING LIKE BLOOD SUGAR IS LOW, SWEATING, FELT DIZZY WHEN UP TO BATHROOM. BLOOD GLUCOSE 53. PT GIVEN APPLE JUICE, CRAKCERS AND PEANUT BUTTER.
--- NOTE | 2017-11-07 14:21 | NUR ---
MD NOTIFIED OF HYPOGLYCEMIA. PT BLOOD GLUCOSE NOW 120. MD TO ADJUST INSULIN. PT RESTING IN BED. PT DENIES OTHER NEEDS AT THIS TIME.
--- NOTE | 2017-11-07 17:19 | NUR ---
PT BLOOD GLUCOSE 272, GIVEN 6 UNITS SS INSULIN. IV CONTINUES TO INFUSE CEFEPIME. PT DENIES OTHER NEEDS AT THIS TIME.
--- NOTE | 2017-11-07 17:41 | NUR ---
PT HAD HYPOGLYCEMIC EPISSODE THIS AFTERNOON, INSULIN ADJUSTED. IV CEFEPIME INFUSIGN TO MIDLINE, PATENT. PT INDEPENDENT IN ROOM AND CAMARGO. TOLERATING ADA DIET. PLAN TO DISCHARGE TOMORROW.
--- NOTE | 2017-11-07 19:00 | NUR ---
BEDSIDE REPORT RECEIVED FROM BETHANY DAVIS. PT SALINE LOCKED, SITTING UP AT SIDE OF BED AT THIS TIME. CALL LIGHT IN REACH. PT HAS NO REQUESTS AT THIS TIME.
--- NOTE | 2017-11-07 20:34 | NUR ---
VITALS AND I&OS DONE AND CHARTED. BEDSIDE TABLE AND CALL LIGHT WITHIN REACH. PT NEEDS NOTHING ELSE AT THIS TIME.
--- NOTE | 2017-11-07 20:40 | NUR ---
PT ASSESSMENT COMPLETE AT THIS TIME, CBG 168, 2 UNITS NOVOLOG SS ADMINISTERED. PT ALERT AND ORIENTED, DENIES PAIN, DENIES NAUSEA. LUNGS CLEAR THROUGHOUT ALL LOBES, HR REGULAR RHYTHM. BOWEL TONES ACTIVE X 4. CSM INTACT BLE, LEFT LEG DRESSING IN PLACE. IV ANTIBIOTIC INFUSING WNL MIDLINE. PT GIVEN ICE WATER, NO ADDL REQUESTS. CALL LIGHT IN REACH, PT WATCHING TV.
--- NOTE | 2017-11-07 23:46 | NUR ---
CHECKED ON PT, PT APPEARS TO BE SLEEPING, LYING ON RIGHT SIDE, EYES CLOSED, BREATHING NON-LABORED. LIGHTS OFF IN ROOM.
--- NOTE | 2017-11-08 00:23 | NUR ---
IV PUMP BEEPING, IN ROOM TO ASSESS, IV ABT. INFUSING WNL. PT C/O ROSS 11/11, PRN TYLENOL ADMINISTERED. LIGHTS OFF IN PT ROOM, CALL LIGHT IN REACH.
--- NOTE | 2017-11-08 00:28 | NUR ---
IV SALINE LOCKED WNL, IV CEFEPIME INFUSION COMPLETE. CALL LIGHT IN REACH, LIGHTS OFF IN ROOM.
--- NOTE | 2017-11-08 01:06 | NUR ---
PT OUT OF BED, WALKING IN HALLWAY, WALKING BOOT ON. GAIT STEADY.
--- NOTE | 2017-11-08 02:20 | NUR ---
PT SLEEPING, AWAKENS TO RN VOICE, IV CEFEPIME INFUSING WNL MIDLINE. URINAL EMPTIED 475 ML CLEAR YELLOW URINE. PT HAS NO ADDL REQUESTS, CALL LIGHT IN REACH, LIGHTS OFF IN ROOM.
--- NOTE | 2017-11-08 03:25 | NUR ---
PT APPEARS TO BE SLEEPING AT THIS TIME, EYES CLOSED, BREATHING VISIBLE AND NON-LABORED. IV CEFEPIME INFUSING. LIGHTS OFF IN ROOM.
--- NOTE | 2017-11-08 05:30 | NUR ---
PT OUT OF ROOM AMBULATING MULTIPLE TIMES THIS SHIFT, INDEPENDANT IN ROOM. VOIDING QUANITY SUFFICIENT. MIDLINE SALINE LOCKED WNL, CEFEPIME IV INFUSIONS. RECEIVING PRN TYLENOL X 1 FOR ROSS.
--- NOTE | 2017-11-08 05:48 | NUR ---
EMPTIED HIS URINAL AND CHARTED IT. EMPTIED GARBAGES AND CLEANED UP HIS ROOM. BEDSIDE TABLE AND CALL LIGHT WITHIN REACH.
--- NOTE | 2017-11-08 06:36 | NUR ---
IV CEFAPIME INFUSION COMPLETE. MIDLINE SALINE LOCKED AT THIS TIME. PT GIVEN ICE WATER REQUESTED. NO ADDL REQUESTS AT THIS TIME, LYING IN BED. CALL LIGHT IN REACH.
--- NOTE | 2017-11-08 07:30 | NUR ---
THIS RN TO BEDSIDE FOR CBG. CBG TAKEN, 107. PT REQUESTS ASSISTANCE TO TAKE A SHOWER. MID LINE COVERED, LEFT FOOT AND DRESSING COVERED. PT ASSISTED TO SHOWER AREA, SUPPLIES PROVIDED. PT VERBALIZES UNDERSTANDING OF CALL LIGHT USE. CALL LIGHT WITHIN REACH.
--- NOTE | 2017-11-08 07:34 | NUR ---
PATIENT UP AND WALKING HALLWAYS. CLEAN GOWN AND TOWELS SET UP IN BATHROM FOR PATIENT. NO OTHER NEEDS AT THIS TIME.
--- NOTE | 2017-11-08 08:11 | NUR ---
MORNING ASSESSMENT DUE. THIS RN TO BEDSIDE. PT FINISHED WITH SHOWER, UP AT EDGE OF BED EATING BREAKFAST. ROTARY KILN OPERATOR PRESENT. PT DENIES PAIN AND NAUSEA. ASSESSMENT DONE. DRESSING KATIE WITH SOME SMALL SHADOWING. ASSESSMENT DONE. MEDICAITONS GIVEN. THIS RN NOTES PT HAS CZECH TOAST, SYRUP, AND JUICE FOR BREAKFAST. PT OFFERED EDUCATION R/T FOOD CHOICES, BLOOD SURGAR CONTROL, AND WOUND HEALING. PT REFUSES INFORMATION STAING, "I JUST EAT WHAT I WANT." PT STATES HE HAS NO ADDITIONAL REQUESTS OR COMPLAINTS AT THIS TIME OTHER THAN "WHEN I CAN GO HOME." PT ASSURED THAT MD WILL BE CONSULTED SOON. PT LISTENING TO MUSIC, CALL LIGHT WITHIN REACH.
--- NOTE | 2017-11-08 09:46 | NUR ---
PATIENT SITTING UP IN BED, READING. CALL LIGHT IN REACH. ROOM STRAIGHTENED UP. NO OTHER NEEDS AT THIS TIME.
--- NOTE | 2017-11-08 10:21 | NUR ---
PT UPDATED ON PLAN OF CARE AND EXPECTED DISCHARGE TIME OF 12-1300 AFTER HIS ABX. PT VERBALIZES UNDERSTANDING OF AND IS AGREEABLE TO PLAN. PT UP AT EDGE OF BED WORKING ON PHONE. NO REQUESTS OR COMPLAINTS. CALL LIGHT WITHIN REACH.
--- NOTE | 2017-11-08 12:45 | NUR ---
PUMP ALARMING, INFUSION AND FLUSH COMPLETE. MID LINE ASSESSED, WNL. MID LINE DC'D PER PROTOCOL. PT READY FOR DISCHARGE. VITALS TAKEN. PT WHEELED FROM CLINIC. PT VERBALIZES UNDERSTANDING OF DISCHARGE INSTRUCTIONS AND STATES HIS QUESTIONS HAVE BEEN ANSWERED.
--- NOTE | 2017-11-08 12:46 | NUR ---
PT EXPECTS TO BE DC'D TODAY-FAMILY IN . EXTENDED A BLESSING, PT THANKED ME. WILL FOLLOW NEEDED
== END 2017-11-08 12:45 | disposition home or self-care (01) | DRG 638 ==
LOC: MS 11:00
PROVIDERS: ADMIT Internal Medicine
DX: E11.628 Type 2 diabetes mellitus with other skin complications (principal); L03.116 Cellulitis of left lower limb; B95.61 Methicillin susceptible Staphylococcus aureus infection as the cause of diseases classified elsewhere; B96.5 Pseudomonas (aeruginosa) (mallei) (pseudomallei) as the cause of diseases classified elsewhere; Z16.35 Resistance to multiple antimicrobial drugs; E11.621 Type 2 diabetes mellitus with foot ulcer; L97.529 Non-pressure chronic ulcer of other part of left foot with unspecified severity; E11.42 Type 2 diabetes mellitus with diabetic polyneuropathy; K21.9 Gastro-esophageal reflux disease without esophagitis; E78.5 Hyperlipidemia, unspecified; Z79.82 Long term (current) use of aspirin; Z79.4 Long term (current) use of insulin; Z79.899 Other long term (current) drug therapy; Z88.1 Allergy status to other antibiotic agents; Z88.0 Allergy status to penicillin
CPT/HCPCS: J0692; J1650

== ENCOUNTER 2018-08-02 16:34 | Observation (INO) | payer MEDICARE, MEDICAID, OTHER ==
[~2018-08-02] VITALS: Ht 177.8 cm; Wt 106.5 kg
[~2018-08-02 16:34] MED LIST changes: +NOVOLOG FL100 UNIT/1 SUB-Q
[2018-08-02] MEDS ORDERED: CEFUROXIME500 MG PO (17:38)
[2018-08-02] MEDS ORDERED: BACTRIM DS TAB1 EACH PO (17:38)
[2018-08-02] MEDS ORDERED: ZOFRAN4 MG PO (18:26)
--- NOTE | 2018-08-02 20:45 | NUR ---
PT ADMITTED TO ROOM 124 FROM ED. PT HAD GONE TO DR CONTEH ON WEDNESDAY, PUT ON PO ANTIBIOTICS, TODAY HE COMPLAINED OF NOT FEELING WELL, UNABLE TO EAT, NAUSEATED THROUGHOUT THE DAY. HE STATES THAT DR. CONTEH TOLD HIM "IF YOU DON'T START NOT FEELING WELL, GO TO THE ER". PT IS ACCOMPAINED BY HIS DAUGHTER AND 3 SISTERS AND FAMILY. PT WAS ABLE TO SLIDE ACROSS TO THE BED FROM THE STRETCHER INDEPENDENTLY.
--- NOTE | 2018-08-02 21:25 | NUR ---
IN ROOM TO ADMINSITER MEDICATIONS AND ASSESS PT. PT ALSO ORIENTED TO ROOM. URINAL PLACED AT BEDSIDE. DRESSED WOUND ON RT LATERAL FOOT WITH NONADHERENT PAD AND BARB WRAP. HE DENIES FURTHER NEEDS AT THIS TIME. CALL LIGHT IS CLOSE.
--- NOTE | 2018-08-02 21:55 | NUR ---
PT REQUESTED TYLENOL FOR PAIN IN BOTTOM FROM IM INJECTIONS GIVEN IN ED. HE ALSO REQUESTED SOME SOUP BEFORE HE IS NPO. HE DENIES FURTHER NEEDS AT THIS TIME. CALL LIGHT IS CLOSE.
--- NOTE | 2018-08-02 23:21 | NUR ---
PT NPO BEFORE MIDNIGHT PER ORDER, FOR A POTENTIAL PROCEDURE IN AM.
--- NOTE | 2018-08-02 23:59 | NUR ---
PT IS RESTING WITH EYES CLOSED, RESPIRATIONS ARE EVEN AND NONLABORED. CALL LIGHT IS WITHIN REACH.
--- NOTE | 2018-08-03 01:44 | NUR ---
PT IS RESTING WITH EYES CLOSED, RR EVEN AND NONLABORED. CALL LIGHT IS CLOSE.
--- NOTE | 2018-08-03 03:05 | NUR ---
IN ROOM TO ADMINISTER IV ABX. PT DENIES PAIN AT THIS TIME AND DENIES NEEDS. CALL LIGHT IS CLOSE.
--- NOTE | 2018-08-03 05:30 | NUR ---
PT IS RESTING WITH EYES CLOSED, RR IS EVEN AND NONLABORED. CALL LIGHT IS WITHIN REACH.
--- NOTE | 2018-08-03 05:33 | NUR ---
PT ADMITTED LAST NIGHT FOR RT DIABETIC FOOT ULCER. IT IS WRAPPED WITH NONADHERENT PAD AND ACEWRAP. SEROSANGUINOUS DRAINAGE NOTED ON PAD. HE HAS REMAINED AFREBRILE SINCE ADMISSION WITH TMAX OF 99.5 WHILE ON MEDR FLOOR. HE IS NPO SINCE MIDNIGHT BECAUSE DR CONTEH WILL COME INTO SEE HIM AND POSSIBLY DO A DEBRIDEMENT. HE RECEIVES IV CEFEPIME AND FLAGYL. NS IS INFUSING AT 125.
--- NOTE | 2018-08-03 06:47 | NUR ---
PT IS AWAKE IN BE, DR CONTEH IS IN THE ROOM AT THIS TIME.
--- NOTE | 2018-08-03 07:45 | NUR ---
PT ALERT AND RESPONDING TO QUESTIONS APPROPRIATELY. PT DENIES NEEDS AT THIS TIME, CALL LIGHT IN REACH
--- NOTE | 2018-08-03 08:40 | NUR ---
NPO STATUS CHANGED PER MD ORDER. ORDERED PT 1800 CALORIE ADA BREAKFAST. PT UP IN CHAIR EATING WITHOUT DIFFICULTY. C/O 10/12 RIGHT HIP PAIN RELATED TO IM INJECTIONS YESTERDAY. GAVE 650 MG PRN ACETAMINOPHEN FOR PAIN. ICE PACK APPLIED TO RIGHT HIP. CALL LIGHT IN REACH
--- NOTE | 2018-08-03 08:47 | NUR ---
PT IS AWAKE IN GOOD SPIRITS, DENIES ANY NEEDS, BREAKFAST ORDER TAKEN, PT HAS BEEN SCHEDULED FOR MRI @ 1:00. HARISHG CDI TO R FOOT. DR CONTEH IN TO CHANGE KARLA EARTLIER. SCHEDULED ABX INFUSING. CALL LIGHT IN EASY REACH.
[2018-08-03] MEDS ORDERED: NOVOLOG FL100 UNIT/1 SUB-Q (09:32)
[2018-08-03] MEDS ORDERED: LANTUS SOL100 UNIT/1 SUB-Q (09:33)
--- NOTE | 2018-08-03 09:34 | NUR ---
Medications reconciled with patient interview
--- NOTE | 2018-08-03 09:56 | NUR ---
ENJOYED BREAKFAST IN RECLINER. TYLENOL WAS GIVEN FOR C/O INJECTION SITE PAIN THAT WAS GIVEN IN ER LAST NIGHT. NO REDNESS OR SWELLING NOTED. ICE PACK GIVEN ALSO FOR AREA. PT NOW REPORTING PAIN ALMOST COMPLETELY GONE. KEEPING R FOOT ELEVATED.
--- NOTE | 2018-08-03 10:00 | NUR ---
PT BACK TO BED, AMBULATED WITH STANDBY ASSIST, BRANDY WELL, GAIT STEADY. PT STATES "I FEEL MUCH BETTER TODAY" NO C/O NAUSEA AFTER BREAKFAST. RIGHT HIP PAIN RATED AT 2/10. PT CONTINUES TO HOLD ICE PACK ON RIGHT HIP. CALL LIGHT IN REACH.
--- NOTE | 2018-08-03 12:30 | NUR ---
PT SITTING UP ON SIDE OF BED EATING LUNCH INDEPENDENTLY, VISITING WITH FRIEND IN THE ROOM. NO C/O NAUSEA OR PAIN AT THIS TIME. CALL LIGHT IN REACH.
--- NOTE | 2018-08-03 12:50 | NUR ---
FINANCIAL SOLUTIONS ADVISOR IN TO TRANSFER PT FOR MRI, PT SALINE LOCKED. PT TRANSFERRED INDEPENDENTLY TO W/C.
--- NOTE | 2018-08-03 13:50 | NUR ---
PT BACK FROM MRI, TRANSFERRED SELF INDEPENDENTLY FROM WHEEL CHAIR TO BED, STEADY GAIT. NO REQUESTS AT THIS TIME, CALL LIGHT IN REACH.
--- NOTE | 2018-08-03 14:37 | NUR ---
PT IS RESTING ON BED, DENIES PAIN, STATES HE IS FEELING ANXIOUS HOPES TO GO HOME SOON. IN ROOM, BOTH LAUGHING AND TALKING. DRSG IS CDI TO R FOOT. REMAINS AFEBRILE.
--- NOTE | 2018-08-03 17:42 | NUR ---
ATE 100% OF DINNER, VISITING WITH FAMILY IN ROOM. DENIES ANY NEEDS.
--- NOTE | 2018-08-03 18:05 | NUR ---
PT STATES HE FEELS MUCH BETTER. GOOD APPETITE, AFEBRILE, DENIES PAIN, DR CONTEH IN TO CHANGE DRSG, MRI DONE OF R FOOT, RESULTS PENDING. CONT. IV ABX OF CEFEPIME AND FLAGYL. DENIES ANY CONCERNS OR NEEDS.
--- NOTE | 2018-08-03 18:32 | NUR ---
PT WITH MANY FAMILY AND FRIENDS IN ROOM TO VISIT, ASKED IF HE COULD HAVE TYLENOL FOR HEADACHE.
--- NOTE | 2018-08-03 19:00 | NUR ---
SHIFT REPORT RECEIVED. PATIENT RESTING IN BED. FAMILY IN ROOM. PATIENT DENIES NEEDS AT THIS TIME. CALL LIGHT IN REACH.
--- NOTE | 2018-08-03 20:55 | NUR ---
VITALS AND I&OS DONE AND CHARTED. CLEANED UP PT'S ROOM AND EMPTIED HIS URINAL. FRESH ICE WATER GIVEN. BEDSIDE TABLE AND CALL LIGHT IN REACH.
--- NOTE | 2018-08-03 21:30 | NUR ---
SECOND IV STARTED FOR SCHEDULED ABX. PATIENT TOLERATED WELL. IV FLUIDS INFUSING PER ORDER. PATIENT DENIES PAIN. LUNGS ARE CLEAR. NO NAUSEA. DRESSING ON RIGHT FOOT IS C/D/I. PATIENT DENIES FURTHER NEEDS. CALL LIGHT IN REACH.
--- NOTE | 2018-08-04 00:14 | NUR ---
PER PT REQUEST I GAVE HIM SOME VIJI CRACKERS AND PEANUT BUTTER FOR SNACK. BEDSIDE TABLE AND CALL LIGHT IN REACH. PT NEEDS NOTHING MORE AT THIS TIME.
--- NOTE | 2018-08-04 00:44 | NUR ---
PATIENT RESTING IN BED WITH LIGHTS ON WATCHING TV. DENIES ANY NEEDS. IV FLUIDS AND ABX PER ORDER, SITE WNL.
--- NOTE | 2018-08-04 02:05 | NUR ---
IV ABX STARTED PER ORDER. PATIENT SITTING UP TO EDGE OF BED ON HIS CELL PHONE. STATES "I SLEPT TOO MUCH THIS AFTERNOON, NOW I CAN'T SLEEP". ENCOURAGED PATIENT TO AMBULATE IN HALLWAY IF HIS RESTLESSNESS CONTINUES. URNAL EMPTIED. PATIENT DENIED FURTHER NEEDS.
--- NOTE | 2018-08-04 04:00 | NUR ---
PATIENT RESTING IN BED WATCHING TV. IV FLUIDS PER ORDER, SITE WNL. URNAL EMPTIED. PATIENT DENIED NEEDS.
--- NOTE | 2018-08-04 05:53 | NUR ---
PATIENT SLEPT OFF AND ON, REPORTED SOME DIFFICULTY SLEEPING DUE TO OVER SLEEPING DURING THE DAY. NO PAIN. IV ABX PER ORDER. SECOND IV SITE ON RIGHT FOREARM. IV FLUIDS PER ORDER. DRESSING PLACED BY DR. CONTEH IN PLACE, CDI. PATIENT INDEPENDENT IN THE ROOM. ACCU CHECKS, ADA DIET.
--- NOTE | 2018-08-04 05:59 | NUR ---
VITALS AND I&OS DONE AND CHARTED. FRESH ICE WATER GIVEN. BEDSIDE TABLE AND CALL LIGHT IN REACH. PT NEEDS NOTHING AT THIS TIME.
--- NOTE | 2018-08-04 06:20 | NUR ---
IN ROOM TO REPLACE DRESSING. WOUND CLEANED WITH CHLORHEXIDINE. 1 PEICE OF ADAPTIC APPLIED COVERED WITH SOME GAUZE. THEN WRAPPED IN KIRLEX AND COBAN. ORDERS TO LEAVE DRESSING IN PLACE UNLESS IT BECOMES SOILED AND THEN REPLACE IT THE WAY IT CURRENTLY IS.
--- NOTE | 2018-08-04 07:45 | NUR ---
PT AWAKE, ALERT AND ORIENTED X3. PT DENIES PAIN AT THIS TIME. PERSONAL SUPPLIES AND CALL LIGHT WITHIN REACH. NO NEEDS.
--- NOTE | 2018-08-04 11:05 | NUR ---
Pt sitting up in bed. Pt denies pain at this time. Personal supplies and call light within reach.
--- NOTE | 2018-08-04 13:04 | NUR ---
PT SITTING ON SIDE OF BED, LISTENING TO MUSIC. PT QUIET, MOSTLY YES NO ANSWERS TO QUESTIONS. REQUESTED ICE WATER, EXTENDED A BLESSING AND WILL FOLLOW NEEDED
--- NOTE | 2018-08-04 14:20 | NUR ---
PT SITTING UP AT BEDSIDE. VISITORS IN ROOM AT THIS TIME. PT DENIES PAIN. PERSONAL SUPPLIES AND CALL LIGHT WITHIN REACH. NO NEEDS.
--- NOTE | 2018-08-04 16:19 | NUR ---
Dr. Smith here to see pt.
--- NOTE | 2018-08-04 17:43 | NUR ---
Pt. sitting on edge of bed. Visitors in room. Requests to postpone dinner until 1830.
--- NOTE | 2018-08-04 18:05 | NUR ---
PT ON RA, A&OX3. BS CHECKS WITH S/S INSULING. TOLERATING ADA DIET. UP STANDBY. DENIES PAIN. SURGERY TOMORROW WITH DR. CONTEH 12/1PM. NPO AT 0000.
--- NOTE | 2018-08-04 18:21 | NUR ---
Pt remained awake throughout the day. No pain reported. Expressed disappointment that he would not be able to discharge today yet his disposition remained positive. Pt is independent in room. Pt still adhering to ADA diet and Accu Checks. IV fluids per order.
--- NOTE | 2018-08-04 19:02 | NUR ---
IN ROOM FOR REPORT, PT IS AWAKE IN BED. HE DENIES NEEDS AT THIS TIME. CALL LIGHT IS WITHIN REACH.
--- NOTE | 2018-08-04 20:52 | NUR ---
PER PT REQUEST I BROUGHT HIM SOME WARM BATHING WIPES AND A WARM SHOWER CAP. GAVE HIM A FRESH GOWN AND CHANGED HIS BEDDING. PT NEEDS NOTHING MORE AT THIS TIME.
--- NOTE | 2018-08-04 21:06 | NUR ---
IN ROOM TO ASSESS PT AND ADMINISTER MEDICATIONS. HIS RT FOOT DRESSING IS CDI AND HIS ONLY PAIN IS A HEADACHE WHICH TYLENOL WAS ADMINISTERED FOR. HE HAS FRESH WATER AT BEDSIDE AND DENIES FURTHER NEEDS CALL LIGHT IS WITHIN REACH.
--- NOTE | 2018-08-04 21:42 | NUR ---
VITALS DONE AND CHARTED. BEDSIDE TABLE AND CALL LIGHT IN REACH. PT NEEDS NOTHING AT THIS TIME.
--- NOTE | 2018-08-04 22:03 | NUR ---
PT IS RESTING WITH EYES CLOSED, RR EVEN AND NONLABORED. CALL LIGHT IS CLOSE.
--- NOTE | 2018-08-04 23:45 | NUR ---
PT IS AWAKE IN BED, HIS HEADACHE IS GONE. HE DENIES NEEDS AT THIS TIME. CALL LIGHT IS CLOSE.
--- NOTE | 2018-08-05 04:02 | NUR ---
RESTING, NO RESP DISTRESS, NO C/O PAIN. DRESSING R FOOT INTACT. PT NPO FOR AM SURGERY. TURNS SELF IN BED
--- NOTE | 2018-08-05 04:50 | NUR ---
RESTING, EYES CLOSED, NO RESP DITRESS, NO C/O PAIN, TURNS SELF IN BED, IVF INFUSING W/O PROBLEMS, DRESSING R FOOT CDI. PT NPO SINCE MIDNIGHT FOR AM PROCEDURE. NO C/O PAIN, NO REQUESTS, ON ROOM AIR, USES URINAL, VOIDING QS.
--- NOTE | 2018-08-05 06:24 | NUR ---
up to br with minimum of help, voided, back to bed, tolerated well. Dressing r foot CDI, no c/o pain
--- NOTE | 2018-08-05 07:00 | NUR ---
RECEIVED REPORT AT 0700, FOUND PT IN BED SLEEPING. NO NEW CONCERNS NOTED AT THAT TIME.
--- NOTE | 2018-08-05 10:00 | NUR ---
PT WAS COMPLAINING OF SOME PAIN IN HIS HANDS EARLIER. PT RECEIVED 650MG PRN PO TYLENOL. PAIN NOW IS A 3/10. ALL LOBES ARE CLEAR, ABD SOUNDS ARE PRESENT. V/S ARE WDL. DRESSING ON RIGHT FOOT IS C/D/I. PT IS SOMEWHAT ANXIOUS ABOUT TODAY'S PROCEDURE THOUGH. EVERYTHING PRE-OP IS DONE AND PT IS READY FOR OR. BS WAS 170, PT DID NOT RECEIVE ANY INSULIN DUE TO NPO STATUS SINCE 0000. RIGHT FOOT IS WART TO TOUCH WITH NUMBNESS PRESENT. PT HAS HAD SEVERAL TOE AMPUTATIONS. NO NEW CONCERNS NOTED AT THIS TIME.
--- NOTE | 2018-08-05 11:09 | NUR ---
Helped patient prepare for procedure at 1000. Chloraxexadine wipes used, gown, linens changed per procedure protocol. Patient stated that getting up to chair and talking helped lessen anxiety he was experiencing earlier this morning. Rt foot warm, dry and dressing intact. Pt reports no pain. Visitor now in room.
--- NOTE | 2018-08-05 12:00 | NUR ---
PT LEFT TO OR AT AROUND 1230.
--- NOTE | 2018-08-05 13:50 | NUR ---
08/05/18 1350 Shani Chavez 1343 PATIENT ARRIVES TO PACU AWAKE, DENIES PAIN OR NAUSEA. RESP EVEN AND UNLABORED, OXYMASK AT 8 LITERS, SATS AT 100%, DECREASED OXYGEN TO 4L. 1350 PATIENT AWAKE, CONTINUES TO DENY PAIN, ANSWERS QUESTIONS APPROPRIATELY. RESP EVEN AND UNLABORED, OXYGEN OFF, ROOM AIR SATS GREATER THAN 90%. BS 156.
--- NOTE | 2018-08-05 14:15 | NUR ---
PT CAME BACK FORM OR AT ABOUT 1405. PT IS AAOX4, ON RA, PAIN IS 0/10. DRESSIN ON RIGHT FOOT IS C/D/I. MD CONTEH TO RE-EVALUATED WOUND ON 08/06/18. PT OVERALL SEEMS TO BE DOING WELL. NO NEW CONCERNS NOTED SO FAR.
--- NOTE | 2018-08-05 15:30 | NUR ---
THIS NURSE IS TAKING OVER CARES FOR PT. PT IN BED. AAO. DENIES PAIN OR NEEDS.
--- NOTE | 2018-08-05 16:09 | NUR ---
1535 RN IN PT ROOM WITH PT, SURGICAL SHOE ON PT PER MD ORDER. VS TAKEN, PT DENIES ANY OTHER CONCERNS.
--- NOTE | 2018-08-05 17:00 | NUR ---
DINNER AT BEDSIDE. DENIES NEEDS, CALL LIGHT IN REACH.
--- NOTE | 2018-08-05 21:35 | NUR ---
PT IN BED RESTING. PT REPORTS NO PAIN AT TH IS TIME. CALL LIGHT WITHIN REACH
--- NOTE | 2018-08-05 23:00 | NUR ---
CHARGE NURSE ROUNDING NOTE: PLACED ON CONTACT PRECAUTIONS A NURSING PRECAUTION UNTIL MRSA PANEL LAB RESULTS . PT AWAKE, DRESSING R FOOT WEARING SURGICAL SHOW TOO. NO REQUESTS, CALL LIHGT AND FLUIDS AT BEDSIDE
--- NOTE | 2018-08-06 00:26 | NUR ---
PT UP TO EDGE OF BED USING URINAL. ABX 4 HOUR INFUSION COMPLETE. IV RT FA RICK. PT C/O PAIN 6/10 IN RT FOOT DESCRIBED THROBBING. MEDICATED AND ASSISTED TO ELEVATE RIGHT FOOT. CALL LIGHT WITHIN REACH.
--- NOTE | 2018-08-06 02:28 | NUR ---
RESTING, EYES CLOSED, NO S/SX DISTRESS. DRESSING CDI/SURGICAL-ORTHO SHOE R FOOT INPLACE. CALL LIGHT AND FLUIDS WITHIN HANDS REACH
--- NOTE | 2018-08-06 02:45 | NUR ---
PT IN BED RESTING. CALL LIGHT IN REACH.
--- NOTE | 2018-08-06 04:09 | NUR ---
PT RESTING IN BED. CALL LIGHT IN REACH. NO REQUESTS AT THIS TIME
--- NOTE | 2018-08-06 05:18 | NUR ---
PT PAIN WELL CONTROLLED WITH OXYCODONE. PT CALLS APPROPRIATELY FOR EMPTY URINAL. PT. RESTED WELL. NOTE TO LEAVE BOOT ON AT ALL TIMES EVEN IN BED. ELEVATE FOOT.
--- NOTE | 2018-08-06 07:36 | NUR ---
REPORT RECEIVED FROM ANIME ARTIST RN/ PT IN BED AAO, DENIES PAIN OR NEEDS. SL AT THIS TIME. CALL LIGHT IN REACH.
--- NOTE | 2018-08-06 08:31 | NUR ---
ORDERED HIS BREAKFAST THAN DID A BLOOD SUGAR CHECK. ASKED HIM IF HE WOULD LIKE TO TAKE A BED BATH HE SAID MAYBE LATER.
--- NOTE | 2018-08-06 10:40 | NUR ---
PT WORKED WITH PHYSICAL THERAPY. DENIED PAIN. TOLERATED WELL.
[2018-08-06] MEDS ORDERED: DOXYCYCLINE HY100 MG PO (10:53)
[2018-08-06] MEDS ORDERED: MIRALAX17 GM PO (10:53)
[2018-08-06] MEDS ORDERED: OXYCODONE HCL5 MG PT (10:54)
--- NOTE | 2018-08-06 13:00 | NUR ---
PT UP FOR LUNCH. CALL LIGHT IN REACH. DENIES NEEDS AT THIS TIME.
--- NOTE | 2018-08-06 13:10 | EKG ---
[facility] [address] [place], [place] [address] Signed Normal sinus rhythm Normal ECG No previous ECGs available Confirmed by KAMAR JACOBO DO ([id number]) on 08/06/2018 1:10:32 PM Electronically Signed By: KAMAR JACOBO DO 08/06/18 1310 PATIENT NAME: NANCY OH Electrocardiogram DATE OF : 59 PHYSICIAN: KAMAR JACOBO DO REPORT #: [id number] REPORT IS CONFIDENTIAL AND NOT TO BE RELEASED WITHOUT AUTHORIZATION
--- NOTE | 2018-08-24 09:20 | OR ---
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 POSTOPERATIVE DIAGNOSIS: Diabetic ulcer with osteomyelitis, right 5th metatarsal. PROCEDURE PERFORMED: Debridement of right foot. 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 HAND PASTER: Sandeep Marrero CRNA SPECIMEN TO PATHOLOGY: Bone of right 5th metatarsal and proximal phalanx right 5th digit. DESCRIPTION OF PROCEDURE: The patient was brought to the operating room and placed on the table in the supine position. Anesthesia Department administered IV sedation after which a local block was given to the right foot using a total of 5 mL of 1:1 mixture 2% lidocaine plain and 0.5% ropivacaine plain. The right leg and foot were then prepped and draped in the usual sterile manner and an Esmarch was used for hemostasis. Attention was initially directed to the ulcer site lateral right 5th metatarsal head area. An incision was made from the dorsal aspect of the ulcer extending proximally and distally in parallel with the metatarsal and at the superior margin of the metatarsal. The incision was made deep to bone, and soft tissues then reflected dorsally and plantarly to expose the metatarsal as well as the proximal phalanx right 5th digit. The intermediate and distal phalanges right 5th digit had been previously removed in an unrelated procedure. The proximal phalanx was the only remaining bone from the toe. The dissection exposed the 5th metatarsophalangeal joint with very soft bone and bony Electronically Signed By: MIGUEL ANGEL SMITH DPM 08/24/18 0920 PATIENT NAME: NANCY OH OPERATIVE REPORT DATE OF : 59 REPORT #: [id number] PHYSICIAN: MIGUEL ANGEL SMITH DPM PCP: TOOTIE FABIAN MD REPORT IS CONFIDENTIAL AND NOT TO BE RELEASED WITHOUT AUTHORIZATION [facility] [address], [place] [address] Signed erosion noted to the metatarsal head. Preoperative MRI had shown changes to the phalanx as well as to the metatarsal. Therefore, resection was needed both at the phalanx as well as metatarsal level. Dissection carried proximally exposing majority of the metatarsal and the power instrumentation then used to create an osteotomy through the 5th metatarsal removing the distal 2/3rds of the metatarsal in toto. Bone at the level of the osteotomy was noted to be solid, without discoloration. The entire phalanx of right 5th digit was removed as well. At this time, soft tissues were inspected and there was little or no necrotic tissue noted, the tissue within the ulcer site, lateral 5th metatarsal head area appeared discolored and disorganized. This tissue was resected removing the vast majority of the tissue from the entire ulcer area. The remaining tissue was inspected for any necrotic or nonviable tissues and none was noted. The surgical site irrigated with copious amounts of normal saline and the remaining bone of the metatarsal appeared without discoloration and was noted to be hard and solid with use of the saw to create the osteotomy. Surgical site then closed using 3-0 nylon monofilament suture and as the surgical site was closed, antibiotic beads were added, this was a calcium sulfate bead with added vancomycin and tobramycin. The surgical site then closed completely and then dressed with Adaptic, Betadine-soaked gauze, dry gauze, Kerlix fluffs, Flexicon, and Coban for mild compression. The patient tolerated the procedure and the anesthesia well and left the operating room with vital signs stable and vascular status intact to the right foot as evidenced by hyperemia with removal of the Esmarch. ESTIMATED BLOOD LOSS: Less than 5 mL. INTRAOPERATIVE COMPLICATIONS: None. A wound culture obtained using a DNA/PCR type culture. This is used since preoperative cultures were unable to provide any growth or information, likely due to the patient's antibiotics, the patient was on oral antibiotics prior to admission then on IV antibiotics prior to obtaining a culture, and therefore it is unlikely that any additional cultures would be able to grow out a good result. Therefore, it was determined necessary to utilize the PCR type culture. Electronically Signed By: MIGUEL ANGEL SMITH DPM 08/24/18 0920 PATIENT NAME: NANCY OH OPERATIVE REPORT DATE OF : 59 REPORT #: [id number] PHYSICIAN: MIGUEL ANGEL SMITH DPM PCP: TOOTIE FABIAN MD REPORT IS CONFIDENTIAL AND NOT TO BE RELEASED WITHOUT AUTHORIZATION [address] [address] Signed Miguel Angel Smith DPM DFNas/MODL /[id number] Copies: ~ Electronically Signed By: MIGUEL ANGEL SMITH DPM 08/24/18 0920 PATIENT NAME: NANCY OH OPERATIVE REPORT DATE OF : 59 REPORT #: [id number] PHYSICIAN: MIGUEL ANGEL SMITH DPM PCP: TOOTIE FABIAN MD REPORT IS CONFIDENTIAL AND NOT TO BE RELEASED WITHOUT AUTHORIZATION
== END 2018-08-06 14:20 | disposition home or self-care (01) ==
LOC: ED 16:34 → MS 16:36
PROVIDERS: Podiatrist Foot Surgery; ADMIT Internal Medicine
PROC: 0Y6M0Z8 Detachment at Right Foot, Complete 5th Ray, Open Approach (ICD-10-PCS; principal; 2018-08-05 12:00)
DX: E11.69 Type 2 diabetes mellitus with other specified complication (principal); M86.8X7 Other osteomyelitis, ankle and foot; E11.621 Type 2 diabetes mellitus with foot ulcer; L97.519 Non-pressure chronic ulcer of other part of right foot with unspecified severity; I10 Essential (primary) hypertension; N17.9 Acute kidney failure, unspecified; Z86.14 Personal history of Methicillin resistant Staphylococcus aureus infection; Z89.422 Acquired absence of other left toe(s); Z89.421 Acquired absence of other right toe(s); Z88.0 Allergy status to penicillin; Z88.1 Allergy status to other antibiotic agents; Z79.2 Long term (current) use of antibiotics; Z79.82 Long term (current) use of aspirin; Z79.4 Long term (current) use of insulin; Z79.899 Other long term (current) drug therapy
CPT/HCPCS: 01480; 36415; 73630; 73721; 80048; 80053; 83735; 85025; 85651; 87070; 87075; 87077; 87186; 87205; 88307; 88311; 93005; 93010; 94762; 96361; 96372; 96374; 96375; 96376; 97116; 97162; 97530; 99284-25; C1713; C9113; G0378; J0692; J0696; J1815; J2550; J2704; J2765; J2795; J3010; J3475; J7030; J7060

== ENCOUNTER 2019-02-20 15:29 | Emergency (ER) | payer MEDICARE, MEDICAID, OTHER ==
[~2019-02-20] VITALS: Ht 177.8 cm; Wt 99.8 kg
[~2019-02-20 15:29] MED LIST changes: +CEFUROXIME500 MG PO; +LANTUS SOL100 UNIT/1 SUB-Q; +MIRALAX17 GM PO; +OXYCODONE HCL5 MG PT; +ZOFRAN4 MG PO
[2019-02-20] MEDS ORDERED: NORCO 5-325 TA1 EACH PO (17:26)
== END 2019-02-20 17:31 | disposition home or self-care (01) ==
LOC: ED 15:29
DX: S42.032A Displaced fracture of lateral end of left clavicle, initial encounter for closed fracture (principal); S42.022A Displaced fracture of shaft of left clavicle, initial encounter for closed fracture; I10 Essential (primary) hypertension; E11.9 Type 2 diabetes mellitus without complications; Z88.0 Allergy status to penicillin; Z88.1 Allergy status to other antibiotic agents; Z79.82 Long term (current) use of aspirin; Z79.899 Other long term (current) drug therapy; Z79.84 Long term (current) use of oral hypoglycemic drugs; W01.198A Fall on same level from slipping, tripping and stumbling with subsequent striking against other object, initial encounter
CPT/HCPCS: 73000; 99283

== ENCOUNTER 2019-02-22 08:39 | Emergency (ER) | payer MEDICARE, MEDICAID, OTHER ==
[~2019-02-22] VITALS: Ht 177.8 cm; Wt 99.8 kg
[~2019-02-22 08:39] MED LIST changes: +NORCO 5-325 TA1 EACH PO
--- OUTSIDE RECORDS SUMMARY | 2019-02-22 08:42 | XMS ---
PreManage Notification: NANCY OH Security Operations Section Manager Events No recent Security Events currently on file CRITERIA MET - [facility] - 2 Visits in 30 Days CARE PROVIDERS There are no care providers on record at this time. Arabella has no Care Guidelines for this patient. Danish VISIT COUNT (12 MO[address] [facility] (ID) 3 LAKSHMI Ahmadi TOTAL 4 NOTE: Visits indicate total known visits. ED/C VISIT TRACKING (12 MO.) 02/22/2019 08:40 [facility] [place] TYPE: Emergency COMPLAINT: - LEFT SIDE RIB PAIN 02/20/2019 15:29 [facility] [place] TYPE: Emergency COMPLAINT: - LEFT SHOULD[facility]JUR[facility] COMPLAINT: - DIZZINESS DIAGNOSES: 1. Dizziness and giddiness 2. Generalized abdominal pain 3. Tachycardia, unspecified 4. Pleural effusion, not elsewhere classified 5. 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 - Type 2 diabetes mellitus with foot ulcer - Non-pressure chronic ulcer of other part of right foot with unspecified severity - lobsterman (current) use of antibiotics - Acute kidney failure, unspecified - Acquired absence of other left toe(s) - Allergy status to penicillin - Type 2 diabetes mellitus with other specified complication - Essential (primary) hypertension - Other osteomyelitis, ankle and foot - lobsterman (current) use of insulin - Personal history of Methicillin resistant Staphylococcus aureus infection - detention (current) use of aspirin - Allergy status to other antibiotic agents status [email or web address]
[2019-02-22] MEDS ORDERED: NORCO 5-325 TA1 EACH PO (10:24)
== END 2019-02-22 10:50 | disposition home or self-care (01) ==
LOC: ED 08:39
DX: S22.32XA Fracture of one rib, left side, initial encounter for closed fracture (principal); W18.30XA Fall on same level, unspecified, initial encounter; E11.9 Type 2 diabetes mellitus without complications; I10 Essential (primary) hypertension; Z88.0 Allergy status to penicillin; Z88.1 Allergy status to other antibiotic agents; Z79.899 Other long term (current) drug therapy; Z79.4 Long term (current) use of insulin; Z79.82 Long term (current) use of aspirin
CPT/HCPCS: 71046; 99284-25

== ENCOUNTER 2020-09-04 05:50 | Day surgery (SDC) | payer MEDICARE, OTHER, MEDICAID ==
[~2020-09-04] VITALS: Ht 177.8 cm; Wt 108.2 kg
--- NOTE | ~2020-09-04 | OR ---
[facility] [address] [place], [place] [address] Draft DATE OF OPERATION: 09/04/2020 SURGEON: Miguel Angel Smith DPM PREOPERATIVE DIAGNOSES: 1. Diabetic neuropathy. 2. Foot deformity, left foot, long 4th metatarsal. POSTOPERATIVE DIAGNOSES: 1. Diabetic neuropathy. 2. Foot deformity, left foot, long 4th metatarsal. GAS TECHNICIAN SURGEON: Zeina Mendoza DPM. ANESTHESIA: IV general with local block, left foot. PRINCIPAL CONSULTING ENGINEER: Miguel Angel Del Cid. SPECIMEN TO PATHOLOGY: None. PROCEDURE: Osteotomy of left 4th metatarsal. DESCRIPTION OF PROCEDURE: The patient was brought to the operating room and placed on the table in the supine position. Anesthesia Department administered IV sedation after which a local block was given to the left foot using a total of 7 mL 1:1 mixture, 0.5% ropivacaine plain and 2% lidocaine plain. The left leg and foot were then prepped and draped in the usual sterile manner and an Esmarch was used for hemostasis. Attention was initially directed to the dorsal left forefoot where a 2.5 cm incision was made over the distal left 4th metatarsal. The incision was initially full-thickness through the dermis then deepened through subcutaneous tissue using careful dissection and cautery as necessary for hemostasis. The dissection was deepened to the level of the metatarsal, soft tissues were reflected medially and laterally to expose the metatarsal. Then, the C-arm was used for intraoperative images to confirm the location PATIENT NAME: OHNANCY OPERATIVE REPORT DATE OF : 59 REPORT #: [id number] PHYSICIAN: MIGUEL ANGEL SMITH DPM PCP: LIDA SHARMA REPORT IS CONFIDENTIAL AND NOT TO BE RELEASED WITHOUT AUTHORIZATION [facility] [address] [place] [id number] Draft of the osteotomy and insuring that the osteotomy is at the level similar to the adjacent length of the 3rd and 5th metatarsals in an attempt to create an appropriate metatarsal parabola. With this confirmed, the osteotomy was then made through the 4th metatarsal. The surgical site was then irrigated with copious amounts of normal saline. Subcutaneous tissue closed using 4-0 Vicryl, and skin closed using 5-0 nylon. Dressings were then applied consisting of Adaptic, Betadine-soaked gauze, Kerlix fluffs, Flexicon, and Coban for mild compression. Plantar ulcer site at the 4th metatarsal head was dressed with bacitracin ointment and dry gauze dressings. INTRAOPERATIVE COMPLICATIONS: None. ESTIMATED BLOOD LOSS: Less than 5 mL. The patient tolerated the procedure and anesthesia well and left the operating room with vital signs stable and vascular status intact to the left foot as evidenced by hyperemia with removal of the Esmarch. FREIDA Farnsworth/COREY /[id number] Copies: ~ PATIENT NAME: NANCY OH OPERATIVE REPORT DATE OF : 59 REPORT #: [id number] PHYSICIAN: MIGUEL ANGEL SMITH DPM PCP: LIDA SHARMA REPORT IS CONFIDENTIAL AND NOT TO BE RELEASED WITHOUT AUTHORIZATION
[~2020-09-04 05:50] MED LIST changes: +HYDROCODON-ACE1 EA11 PO
--- NOTE | 2020-09-04 08:20 | NUR ---
09/04/20 0820 Pernell Xavier RESPONDS TO VOICE. REORIENTED TO TIME AND SITUATION. DENIES NAUSEA OR PAIN. FALLS ASLEEP EASILY.
== END 2020-09-04 09:05 | disposition home or self-care (01) ==
LOC: DS 05:50 → OPS 05:50 → DS 09:00 → OPS 09:00
PROVIDERS: ATTEND Podiatrist Foot Surgery
PROC: 0QSP04Z Reposition Left Metatarsal with Internal Fixation Device, Open Approach (ICD-10-PCS; principal; 2020-09-04 06:45)
DX: M21.6X2 Other acquired deformities of left foot (principal); E11.610 Type 2 diabetes mellitus with diabetic neuropathic arthropathy; E11.621 Type 2 diabetes mellitus with foot ulcer; L97.522 Non-pressure chronic ulcer of other part of left foot with fat layer exposed; E11.22 Type 2 diabetes mellitus with diabetic chronic kidney disease; N18.30 Chronic kidney disease, stage 3 unspecified; E11.40 Type 2 diabetes mellitus with diabetic neuropathy, unspecified; Z79.4 Long term (current) use of insulin
CPT/HCPCS: 73620; 73630; 93005; 93010; J1100; J1885; J2001; J2405; J2704; J2795; J3010; J7121

== ENCOUNTER 2021-06-04 11:37 | Emergency (ER) | payer MEDICARE, MEDICAID, OTHER ==
[~2021-06-04] VITALS: Ht 177.8 cm; Wt 104.3 kg
--- OUTSIDE RECORDS SUMMARY | 2021-06-04 11:46 | XMS ---
PreManage Notification: NANCY OH Security Cross Tie Cutter Events No recent Security Events currently on file CRITERIA MET - ED - Positive COVID-19 Lab Result - [facility] CARE PROVIDERS LIDA SHARMA Physician Refinery Operator Helper Crude Unit 02/23/2019-Current PHONE: Unknown Arabella has no Care Guidelines for this patient. EAmari VISIT COUNT (12 MO.) 1 L[facility]SH[facility] Ahmadi TOTAL 1 NOTE: Visits indicate total known visits. ED/UCC VISIT TRACKING (12 MO.) 06/04/2021 11:[address] [facility] [place] TYPE: Emergency COMPLAINT: - FALL, L SHOULDER PAIN INPATIENT VISIT TRACKING (12 MO.) No inpatient visits to display in this time frame [email or web address]
[2021-06-04] MEDS ORDERED: HYDROCODON-ACE1 EA10 PO (15:43)
--- NOTE | 2021-06-05 18:56 | EKG ---
[facility] [address] [facility] [place] [address] Signed Normal sinus rhythm Nonspecific T wave abnormality Abnormal ECG When compared with ECG of 05-AUG-2018 12:07, Nonspecific T wave abnormality now evident in Inferior leads Confirmed by COOKIE DUONG MD ([id number]) on 06/05/2021 6:56:16 PM Electronically Signed By: COOKIE DUONG MD 06/05/21 1856 PATIENT NAME: ADRIANONANCYCHEYENNE SAAVEDRA Electrocardiogram DATE OF : 59 PHYSICIAN: COOKIE DUONG MD REPORT #: [id number] REPORT IS CONFIDENTIAL AND NOT TO BE RELEASED WITHOUT AUTHORIZATION
== END 2021-06-04 16:01 | disposition home or self-care (01) ==
LOC: ED 11:37
DX: M25.512 Pain in left shoulder (principal); W18.30XA Fall on same level, unspecified, initial encounter; E11.9 Type 2 diabetes mellitus without complications; I10 Essential (primary) hypertension; Z88.1 Allergy status to other antibiotic agents; Z88.0 Allergy status to penicillin; Z79.899 Other long term (current) drug therapy; Z79.82 Long term (current) use of aspirin; Z79.4 Long term (current) use of insulin
CPT/HCPCS: 71045; 72040; 73030; 80053; 81001; 84484; 85025; 93005; 93010; 99284-25

== ENCOUNTER 2021-06-15 10:27 | Inpatient (IN) | payer MEDICARE, OTHER ==
[~2021-06-15] VITALS: Ht 177.8 cm; Wt 106.9 kg
[~2021-06-15 10:27] MED LIST changes: -ASPIR-LOW81 MG PO; +HYDROCODON-ACE1 EA10 PO; +LO-DOSE ASPIRIN81 M1 PO; +OMEPRAZOLE20 MG PO; -PRILOSEC20 MG PO
--- OUTSIDE RECORDS SUMMARY | 2021-06-15 10:30 | XMS ---
PreManage Notification: NANCY OH Security Parole Supervisor Events No recent Security Events currently on file CRITERIA MET - PDM - [facility] - 2 Visits in 30 Days - ED - Positive COVID-19 Lab Result - [facility] PROVID[facility] LIDA SHARMA Physician 02/23/2019-Current PHONE: Unknown Arabella has no Care Guidelines for this patient. Danish VISIT COUNT (12 MO.) 2 [facility] TOTAL 2 NOTE: Visits indicate total known visits. 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
[2021-06-15] MEDS ORDERED: METFORMIN HCL500 M1 PO (11:03)
--- NOTE | 2021-06-15 20:00 | NUR ---
CALLED PATIENT WAS TAKING NORCO AT HOME FOR LEFT SHOULDER PAIN FROM A PREVIOUS FALL A FEW WEEKS AGO AND HIS LEFT FOOT PAIN IS STARTEING TO RETURN. SAYS HE WILL PUT SOME ORDERS IN FOR PAIN MEDICATION.
--- NOTE | 2021-06-15 20:05 | NUR ---
TAQUERIA,RN IN DOCUMENTING PATIENT'S MEDICAL HX AND CALLED THIS RN PATIENT HAD REDNESS RUNNING UP THE VEIN IN HIS RIGHT ARM AND HIS ARM, AXILLA, AND ARMPIT STARTED TO ITCH. VANCOMYCIN WAS STOPPED AND WAS CALLED. DR. JACOBO ORDERED VANCO DC'D AND HE WILL ORDER ANOTHER MEDICATION. THE REDNESS IN PATIENT'S ARM AND HIS ITCHING RESOLVED IN JUST A FEW MINUTES AFTER IV STOPPED.
--- NOTE | 2021-06-15 20:23 | NUR ---
IN TO DO HEALTH HISTORY. pt RESTING IN BED. REPORT ITCHING IN HIS RIGHT ARM ABOVE HIS IV, REDDENED AREA FOLLOWING VEIN. VANCO IMMEDIATELY STOPPED. PRIMARY RN NOTIFIED. JIMBO SIMS IN ROOM AND ASSESSED SITE. HEALTH HISTORY COMPLETED. ITCHING HAS STOPPED. ARM IS NO LONGER RED. CALL LIGHT WITHIN REACH.
--- NOTE | 2021-06-15 21:45 | NUR ---
PATIENT GIVEN OXYCODONE AND TYLENOL FOR 7/10 LEFT FOOT PAIN AND LEFT SHOULDER PAIN. LIDOCAINE PATCH APPLIED TO LEFT SHOULDER. A SELF APPLIED DRESSING TO PATIENT'S LEFT FOOT WAS REMOVED AND AREA CLEANSED. PATIENT HAS A LARGE ABCESS ON THE BALL OF HIS LEFT FOOT. NO DRAINAGE NOTED. NON-SLIP SOCKS APPLIED TO BOTH FEET AT PATIENT'S REQUEST. PATIENT'S ADMIT ASSESSMENT COMPLETE AND VS ARE STABLE. PATIENT HAS NO OTHER CARE NEEDS AT THIS TIME. CALL LIGHT IS IN REACH.
--- NOTE | 2021-06-15 23:28 | NUR ---
PATIENT'S LEFT SHOULDER IS ACHING EVENING WITH THE LIDOCAINE PATCH TO THE SHOULDER AND PAIN MEDS THAT WERE GIVEN. PATIENT NOT DUE FOR ANY MORE PAIN MEDICATION AT THIS TIME. PATIENT SITTING ON THE EDGE OF THE BED WATCHING TV AND HAS NO CURRENT CARE NEEDS. CALL LIGHT IS IN REACH.
--- NOTE | 2021-06-16 00:03 | NUR ---
PATIENT STILL SITTING UP AT THE SIDE OF THE BED. PATIENT GIVEN SOME DIABETIC JELLO FOR A SNACK. PATIENT HAD NO OTHER NEEDS AT THIS TIME. CALL LIGHT IS IN REACH.
--- NOTE | 2021-06-16 00:21 | NUR ---
PATIENT SAYS PAIN MEDICATION HELPED FOR A LITTLE WHILE BUT IS BACK AT ABOUT 6/10 IN HIS LEFT FOOT AND LEFT SHOULDER. PATIENT CONTINUES TO SIT ON THE BEDSIDE WATCHING TV AND HAS FINISHED HIS SNACK AND HAS NO OTHER CARE NEEDS AT THIS TIME. WILL REMEDICATE PATIENT SOON MEDS ARE AVAILABLE. CALL LIGHT IN REACH.
--- NOTE | 2021-06-16 01:45 | NUR ---
THIS RN IN TO PERFORM 2AM ASSESSMENT WITH DAVID HI. PATIENT VS REMAIN STABLE. PATIENT SAYS THE PAIN IN HIS LEFT SHOULDER IS BACK UP TO 8/10 AND STILL HAVING SOME DISCOMFORT IN HIS LEFT FOOT. PATIENT GIVEN 10MG OXYCODONE PO. PATIENT'S ICE WATER REFILLED AND PATIENT HAD NO OTHER NEEDS AT THIS TIME. CALL LIGHT IN REACH AND LIGHTS TURNED BACK DOWN.
--- NOTE | 2021-06-16 03:33 | NUR ---
PATIENT'S IV KEEPS ALARMING AND IV LOOKS TO ALMOST BE OUT UNDER THE DRESSING, NO INFILTRATION OR REDNESS, BUT IV DC'D AND NEW 22G PLACED IN THE LEFT HAND, FLUSHES WELL AND DRAWS WELL. IV BACK INFUSING WNL. PATIENT SAYS HIS LEFT FOOT AND SHOULDER PAIN IS FINALLY DOWN TO A 2/10. CALL LIGHT IN REACH AND NO OTHER NEEDS AT THIS TIME.
--- NOTE | 2021-06-16 05:30 | NUR ---
PATIENT HS BEEN AWAKE MOST OF THE SHIFT, BUT HAS FINALLY HAD EFFECTIVE ENOUGH PAIN CONTROL HE HAS BEEN ABLE TO GET A FEW HOURS OF SLEEP. PATIENT HAS CHRONIC LEFT SHOULDER PAIN FROM A FALL SEVERL WEEKS AGO AND HAS HAD SOME PAIN ON THE BOTTOM OF HIS LEFT FOOT DUE TO A FOOT ABCESS WHICH IS HIS REASON FOR ADMISSION. ABCESS HAS HAD NO DRAINAGE AND PATIENT CAN STAND WITH 1PSBA AND VOID PER URINAL AT BEDSIDE. PATIENT IS VOIDING QUANTITY SUFFICIENT URINE. PATIENT WAS HAVING A LOT OF TROUBLE WITH HIS ADMIT IV SETTING OF THE IV PUMP FOR DISTAL OCCLUSION AND IV CATHETER WAS NOT IN VERY FAR SO IV DC'D INTACT AND NEW IV PLACED IN THE LEFT HAND 22G. CONTINUOUS LR RUNNING AT 100MLS/HR. PATIENT GIVEN PAIN MEDS AT 2145 AND SHOULDER AND FOOT PAIN RELEIVED FOR AWHILE, BUT 0145 OXYCODONE 10MG FINALLY KNOCKED PATIENT'S PAIN TO 2/10 WHICH HE REMAINS AT, AT THIS TIME. CALL LIGHT IS IN REACH AND PATIENT TRYING TO GET SOME MORE SLEEP BEFORE BREAKFAST.
--- NOTE | 2021-06-16 07:27 | NUR ---
Report received from Leo SIMS. Dr Smith in room to see patient, wound cultures collected and sent to lab. Pt A+O, resting in bed, states no needs at this time. Will continue plan of care.
--- NOTE | 2021-06-16 08:55 | NUR ---
Scheduled medications administered and assessment complete. Pt sitting up at bedside eating breakfast. He states his pain is well managed at this time and has no needs. IVF infusing WNL. L foot wrapped post Dr Smith visit, dressing C/D/I. IV site WNL, flushes well. Pt A+O.
--- NOTE | 2021-06-16 09:31 | NUR ---
PATIENT IN BED WATCHING TV AT THIS TIME. VITALS AND I&O'S CHARTED. BED BATH, AM CARE, AND ORAL CARE SUPPLIES PROVIDED FOR PATIENT. CALL LIGHT IN REACH. NO FURTHER NEEDS AT THIS TIME.
[2021-06-16] MEDS ORDERED: OZEMPIC0.25 MG/0. SUB-Q (10:04)
[2021-06-16] MEDS ORDERED: JANUMET XR 50-1 EAC1 PO (10:05)
[2021-06-16] MEDS ORDERED: LISINOPRIL2.5 MG PO (10:06)
--- NOTE | 2021-06-16 10:10 | NUR ---
IV magnesium administered per order. Pt resting in bed watching tv. States no pain or needs. Call light in reach
--- NOTE | 2021-06-16 11:30 | NUR ---
Spoke with pt. His daughter and grandkids live with him. He denies needs and is established with Dr. Smith for wound care on his feet. Pt drives and is active.
[2021-06-16] MEDS ORDERED: ALLERGY EYE DRO15 ML OP (11:58)
[2021-06-16] MEDS ORDERED: BASAGLAR K100 UNIT/1 SUB-Q (11:59)
--- NOTE | 2021-06-16 14:20 | NUR ---
IV ABX infusing. Pt states he "woke up from a nap" and has no complaints of pain. Assessment complete. Dressing to L foot C/D/I. Lunch and dinner orders taken, no further needs. Call light in reach.
--- NOTE | 2021-06-16 14:50 | NUR ---
PATIENT SITTING UP ON EDGE OF BED WATCHING TV. VITALS AND I&O'S CHARTED. FRESH WATER GIVEN. CALL LIGHT IN REACH. NO FURTHER NEEDS AT THIS TIME.
--- NOTE | 2021-06-16 17:30 | NUR ---
Dr Smith in to see patient and change dressing. Photos taken of foot wound and placed in chart.
--- NOTE | 2021-06-16 18:00 | NUR ---
PATIENT IN CHAIR WATCHING TV, VISITOR IN ROOM. VITALS AND I&O'S CHARTED. FRESH WATER GIVEN. CALL LIGHT IN REACH. NO FURTHER NEEDS AT THIS TIME.
--- NOTE | 2021-06-16 18:20 | NUR ---
medications reconciled with pharmacy records and patient interview
--- NOTE | 2021-06-16 19:30 | NUR ---
SHIFT REPORT RECEIVED FROM BETHANY PATEL. PATIENT DENIES THE NEED FOR ANY PAIN MEDICATION AT THIS TIME. PATIENT'S URINAL EMPTIED. CALL LIGHT IS IN REACH AND PATIENT WILL CALL IF HE NEEDS ANYTHING. DRESSING TO LEFT FOOT IS CLEAN DRY AND INTACT.
--- NOTE | 2021-06-16 21:55 | NUR ---
PATIENT'S VS, I+O, AND PM ASSESSMENT COMPLETE. DAVID HI ASSISTING THIS RE IN THE ROOM. VS ARE STABLE. PATIENT VOIDING QUANTITY SUFFICIENT. PATIENT SAYS HIS LEFT SHOULDER PAIN IS 8/10 AND HIS LEFT FOOT IS,"THROBBING!". PATIENT GIVEN OXYCODONE AND TYLENOL FOR PAIN, MELATONIN FOR SLEEP, AND HIS LIDOCAINE PATCH WAS DC'D FROM HIS LEFT SHOULDER. PATIENT DENIES ANY OTHER NEEDS AT THIS TIME. CALL LIGHT IS IN REACH. LIGHTS TURNED DOWN AT PATIENT'S REQUEST.
--- NOTE | 2021-06-16 23:51 | NUR ---
CHECKED IN ON PATIENT AND HE SAYS HE IS, "COMFORTABLE" AT THIS TIME FAR PAIN GOES, BUT HE FEELS RESTLESS AGAIN TONIGHT. SAME THING HAPPENED AROUND THE SAME TIME LAST NIGHT. PATIENT GIVEN SOME SUGAR FREE JELLO A SNACK. PATIENT'S URINAL EMPTIED. PATIENT DENIES ANY OTHER CARE NEEDS AT THIS TIME. CALL LIGHT IS IN REACH.
--- NOTE | 2021-06-17 01:16 | NUR ---
PATIENT CALLED AND IV BEEPING. THIS RN HUNG NEW IV BAG. URINAL EMPTIED. SHUT DRAPES AT PATIENT'S REQUEST. PATIENT SAYS PAIN IS BACK UP TO 7/10 IN HIS LEFT SHOULDER AND LEFT FOOT. INFORMED PATIENT I WOULD BE BACK WITH PAIN MEDS IN ABOUT 40 MINUTES WHEN THEY ARE DUE. PATIENT VERBALIZED UNDERSTANDING.
--- NOTE | 2021-06-17 01:52 | NUR ---
PATIENT MEDICATED WITH OXCODONE FOR WHAT IS CURRENTLY 7/10 LEFT SHOULDER AND LEFT FOOT PAIN. PATIENT DENIED ANY OTHER NEEDS AT THIS TIME AND ASKED THAT THE LIGHTS BE TURNED OFF WHICH WAS DONE. CALL LIGHT IS IN REACH.
--- NOTE | 2021-06-17 02:39 | NUR ---
THIS RN WENT TO CHECK ON PATIENT AND PATIENT SAYS HIS PAIN IS DOWN TO A 2/10 AND HE SAYS,"IM GOOD". PATIENT HAS NO OTHER CAREE NEEDS AT THIS TIME. CALL LIGHT IS IN REACH.
--- NOTE | 2021-06-17 04:17 | NUR ---
PATIENT RESTING QUIETLY SUPINE IN BED, EYES CLOSED, RESPIRATIONS ARE REGULAR AND EVEN, CALL LIGHT IS IN REACH.
--- NOTE | 2021-06-17 05:03 | NUR ---
AM ASSESSMENT COMPLETE. PATIENT'S VS ARE STABLE. PATIENT VOIDING QUANTITY SUFFICIENT URINE PER URINAL. PATIENT'S PAIN IS 2/10 AT THIS TIME AND HE HAS SLEPT FOR SEVERAL HOURS AFTER HIS LAST DOSE OF PAIN MEDICATION. PATIENT CAP REFILL TO BOTH FEET STILL LESS THAN 3 SECONDS. PATIENT HAS NO OTHER CARE NEEDS AT THIS TIME AND WILL CALL IF HE NEEDS ANYTHING. PATIENT JUST WANTS TO TRY AND GET SOME MORE SLEEP FOR NOW. CALL LIGHT IS IN REACH.
--- NOTE | 2021-06-17 07:15 | NUR ---
Report received from Leo SIMS. Pt resting in bed, Dr Smith in room to assess wound. Pt states no needs at this time. IVF infusing WNL. Will continue plan of care.
--- NOTE | 2021-06-17 08:49 | NUR ---
PT WAS UP GOING TO THE BATHROOM, CALL LIGHT IS WITHIN REACH, NO FURTHER NEEDS AT THIS TIME
--- NOTE | 2021-06-17 10:12 | NUR ---
PATIENT SALINE LOCKED AND TO MRI AT 1000
--- NOTE | 2021-06-17 11:36 | NUR ---
Fluids DC'd per order
--- NOTE | 2021-06-17 14:00 | NUR ---
Spoke briefly with pt and he states he had MRI of foot. Denies needs or complaints.
--- NOTE | 2021-06-17 14:12 | NUR ---
IV ABX infusing WNL. Pt resting in bed and watching tv. He states no pain and no needs.
--- NOTE | 2021-06-17 15:14 | NUR ---
Tylenol 650mg po and oxycodone 10mg po admin for reports of left shoulder pain. Patient reports he is set to see Dr. Gomez here soon for ortho consult.
--- NOTE | 2021-06-17 17:56 | NUR ---
SS insulin provided, pt sitting up to bedside to eat dinner. No needs at this time, call light in reach.
--- NOTE | 2021-06-17 19:35 | NUR ---
CALL LIGHT ANSWERED. PATIENT IS BACK IN BED FROM BATHROOM. EMPTIED URINAL. DID NOT HAVE A BOWEL MOVEMENT. NO RINSE SHAMPOO PROVIDED WITH COUPLE TOWELS.
--- NOTE | 2021-06-17 19:47 | NUR ---
REPORT RECEIVED FROM DAY SHIFT RN. PT LYING IN BED ALERT AND ORIENTED. DENIES NEEDS AT THIS TIME. WHITE BOARD UPDATED. CALL LIGHT IN REACH.
--- NOTE | 2021-06-17 20:28 | NUR ---
PATIENT PROVIDED THINGS FOR ORAL CARE WHILE SITTING BY THE BEDSIDE.
--- NOTE | 2021-06-17 20:50 | NUR ---
EVENING ASSESSMENT COMPLETE. SCHEDULED MEDS ADMINISTERED PER EMAR. PRN ADMINISTERED FOR LEFT SHOULDER/FOOT PAIN. IV ABX INFUSING WNL. DRESSING TO LEFT FOOT INTACT. FRESH WATER PROVIDED. PT DENIES QUESTIONS OR CONCERNS. CALL LIGHT IN REACH.
--- NOTE | 2021-06-17 22:35 | NUR ---
PT LYING IN BED WATCHING TV. REPORTS PAIN MUCH IMPROVED WITH PRN PAIN ADMINISTRATION. IV ABX INFUSING WNL. NO FURTHER NEEDS.
--- NOTE | 2021-06-18 00:54 | NUR ---
CALL LIGHT ANSWERED. PUMP BEEPING. RESOLVED. PRN ADMINISTERED PER EMAR FOR 8/10 LEFT SHOULDER AND FOOT PAIN. NO FURTHER NEEDS AT THIS TIME. CALL LIGHT IN REACH.
--- NOTE | 2021-06-18 05:42 | NUR ---
IV ABX INFUSING WNL. PRN FOR 8/10 LEFT SHOULDER/FOOT PAIN ADMINISTERED PER EMAR. VS AND I&O COMPLETE. BREAKFAST ORDERED. NO FURTHER NEEDS.
--- NOTE | 2021-06-18 08:14 | NUR ---
Awake, on room air, clear lungs, abd soft, IV abx infusing LHand w/o problems, [id number], no coverage needed. alert oriented, no c/o pain, Lidocaine patch to L shoulder. coop with assessment.
--- NOTE | 2021-06-18 08:17 | NUR ---
PT WAS IN BED. PT DECLINED GETTING IN TO THE CHAIR. WHITEBOARD UPDATED. CALL LIGHT IS WITHIN REACH. NO FURTHER NEEDS AT THIS TIME.
--- NOTE | 2021-06-18 08:45 | NUR ---
PT ASKED TO GET THE ITEMS FOR A BED BATH. THIS SIGNAL REPAIRER PROVIDED PT WITH BED BATH SUPPLIES ALONG WITH ORAL CARE SUPPLIES AND A NEW GOWN AND SOCKS. PT IS NOW PERFORMING BED BATH THEMSELF. CALL LIGHT IS WITHIN REACH. NO FURHTER NEEDS AT THIS TIME.
--- NOTE | 2021-06-18 09:00 | NUR ---
Spoke with Dr. Smith after he saw Christopher. Pt will dc to home today. will make a follow up appt and and their office will call with appt time.
--- NOTE | 2021-06-18 12:01 | NUR ---
pt awake, watching tv. on room air, no c/o pain l to or shulder. CBG 173,receieved 1 unit ss insulin. voiding qs yellow urine
[2021-06-18] MEDS ORDERED: METRONIDAZOLE250 MG PO (12:12)
[2021-06-18] MEDS ORDERED: SULFAMETHOXAZO1 EAC1 PO (12:12)
--- NOTE | 2021-06-18 13:08 | NUR ---
Notified by Rn pt is attempting to make an appt with [facility]. To room and discussed with pt his understanding of Dr. Smith's plan. Update to what Dr. Smith told me. I will call Dr Smith and discuss. Called office and spoke with Dr. Smith. would like pt to change dressing on Wednesday, (if pt is unable to change he can go to the office and on Wednesday and they will change the dressing.) Follow up appt has been scheduled for Wednesday at at 1:30 pm. Pt updated and he states he cannot change his dressing. Notified office and they scheduled 1000 and they will fit him in.
--- NOTE | 2021-06-18 13:20 | NUR ---
tried to do hands on dressing change to L foot. pt unable. dressing changed done by RN. will wait for family to get here to teach wound care
--- NOTE | 2021-06-18 14:44 | NUR ---
Pharmacist in room, doing dc med instructions
--- NOTE | 2021-06-18 14:51 | NUR ---
PRESCRIPTIONS CALLED TO [facility].
--- NOTE | 2021-06-18 15:58 | NUR ---
1520 - dressing to L foot done again, pt unable to do by self. order to get soft ortho boot will be obtained 1540 - ortho boot applied to left foot
--- NOTE | 2021-06-18 16:04 | NUR ---
pt medicate with oxycodone and tylenol prior to dc 8/10 L foot pain. dc instructions given verbally and orally. stated understanding.
--- NOTE | 2021-06-18 16:06 | NUR ---
1552 dc home via w/c to home via private car. DC with written dc instructions, RX and all belonging.
== END 2021-06-18 15:54 | disposition home or self-care (01) | DRG 638 ==
LOC: ED 10:27 → MS 18:09
PROVIDERS: ADMIT Student in an Organized Health Care Education/Training Program; ATTEND Student in an Organized Health Care Education/Training Program
DX: E11.621 Type 2 diabetes mellitus with foot ulcer (principal); L97.429 Non-pressure chronic ulcer of left heel and midfoot with unspecified severity; L03.116 Cellulitis of left lower limb; L02.612 Cutaneous abscess of left foot; E11.628 Type 2 diabetes mellitus with other skin complications; E11.610 Type 2 diabetes mellitus with diabetic neuropathic arthropathy; I10 Essential (primary) hypertension; E78.5 Hyperlipidemia, unspecified; E11.42 Type 2 diabetes mellitus with diabetic polyneuropathy; Z20.822 Contact with and (suspected) exposure to COVID-19; K21.9 Gastro-esophageal reflux disease without esophagitis; Z86.14 Personal history of Methicillin resistant Staphylococcus aureus infection; Z89.422 Acquired absence of other left toe(s); Z89.421 Acquired absence of other right toe(s); Z96.641 Presence of right artificial hip joint; Z90.49 Acquired absence of other specified parts of digestive tract; Z90.89 Acquired absence of other organs; Z79.82 Long term (current) use of aspirin; Z79.4 Long term (current) use of insulin; Z79.899 Other long term (current) drug therapy; Z88.0 Allergy status to penicillin; Z88.1 Allergy status to other antibiotic agents
CPT/HCPCS: 73630; 73723; 80048; 80053; 83735; 85025; 86140; 87070; 87205; A9270; A9577; C9803; J0692; J0878; J1650; J1815; J3370; J3475; J7060; J7121; U0003

== ENCOUNTER 2021-10-23 12:13 | Inpatient (IN) | payer MEDICARE, OTHER ==
[~2021-10-23] VITALS: Ht 177.8 cm; Wt 99.2 kg
[~2021-10-23 12:13] MED LIST changes: +ALLERGY EYE DRO15 ML OP; +BASAGLAR K100 UNIT/1 SUB-Q; +JANUMET XR 50-1 EAC1 PO; +LISINOPRIL2.5 MG PO; +METFORMIN HCL500 M1 PO; +METRONIDAZOLE250 MG PO; +OZEMPIC0.25 MG/0. SUB-Q; +SULFAMETHOXAZO1 EAC1 PO
--- NOTE | 2021-10-23 18:30 | NUR ---
PT ARRIVED TO FLOOR FROM ER REPORT RECIEVED FROM ER NURSE PT AWAKE AND ALERT VITALS DONE,X ORIENTATED TO ER ROOM, DENIES ANY PAIN AT THE MOMENT, LR @125, CALL LIGHT WITHIN REACH
--- NOTE | 2021-10-23 22:54 | NUR ---
PT STATES HE IS FEELING BETTER. HAS BEEN UP TO THE BR AND VOIDED TWICE. STOOD AT SINK AND BRUSHED TEETH.
--- NOTE | 2021-10-24 00:50 | NUR ---
PT UP TO THE TOILET, SBA WITH UNPLUGGED IV, BACK TO BED
--- NOTE | 2021-10-24 02:05 | NUR ---
PT UP TO VOID, VS TAKEN FOR 2AM, NO FURTHER NEEDS AT THIS TIME
--- NOTE | 2021-10-24 03:58 | NUR ---
PT ASSISTED WITH IV PUMP AND BATHROOM NEEDS, SBA, WARM BLANKET PROVIDED
--- NOTE | 2021-10-24 07:05 | NUR ---
HAS HAD AN UNEVENTFUL NIGHT. UP TO VOID MULTIPLE TIMES. USES CALL LIGHT APPROPRIATELY. PHYSICIAN INFORMED OF CRITICAL MAG VALUE. NEW ORDERS RECEIVED.
--- NOTE | 2021-10-24 07:30 | NUR ---
REPORT RECIEVED FROM HARDWARE INSTALLER RN PT RESTING IN BED RR EVEN NON LABORED NEW ORDERS FOR MAG REPLACEMENT
--- NOTE | 2021-10-24 07:50 | NUR ---
RN IN ROOM TO START IV MAG PT REQUESTING TO GET UP TO THE BATHROOM, WAITING FOR BREAKFAST NO OTHER NEEDS
--- NOTE | 2021-10-24 08:47 | NUR ---
RN IN ROOM TO DO MORNING ASSESSMENT AND GIVE PT SCHEDULED MEDICATIONS, PT SITTING AT THE EDGE OF THE BED, FINISHED EATING BREAKFAST, DENIES PAIN AT THE MOMENT, NO BM OVER NIGHT REMINDED WE NEED A STOOL SAMPLE, CALL LIGHT WITHIN REACH NO OTHER NEEDS.
--- NOTE | 2021-10-24 09:04 | NUR ---
VS AND I&O'S HAVE BEEN TAKEN AND DOCUMENTED. PT STATES HE HAS NO NEEDS AT THIS TIME. INFORMED PT TO CALL IF HE NEEDS ANYTHING. CALL LIGHT IS IN REACH.
[2021-10-24] MEDS ORDERED: OZEMPIC1 MG/0.71 SUB-Q (10:44)
--- NOTE | 2021-10-24 11:32 | NUR ---
rn in room to round on pt, resting in bed, 2nd bag of mag infusing , no needs at the moment
--- NOTE | 2021-10-24 12:08 | NUR ---
rn in room to do 1200 medications blood glucose 153 1unit of humalog given, 3rd bag of mag started, lunch tray being delivered. denies any other needs
--- NOTE | 2021-10-24 14:00 | NUR ---
rn in room to answer call light assited pt to the bathroom, pt denies any other needs.
--- NOTE | 2021-10-24 15:35 | NUR ---
MED REC COMPLETE
--- NOTE | 2021-10-24 17:42 | NUR ---
rn in room to administer dinner medications pt sitting at the edge of the bed eating dinner sister in room visiting. updated on dr wanting him to stay one more night.
--- NOTE | 2021-10-24 18:51 | NUR ---
rn in room to chnage iv rate to 75ml/hr per order. no other needs.
--- NOTE | 2021-10-24 20:13 | NUR ---
Daughter in to visit. Pt alert and in no distress. Denies any needs.
--- NOTE | 2021-10-24 23:06 | NUR ---
TYLENOL GIVEN FOR C/O PAIN TO THE NECK. ICE PACK OFFERED BUT DECLINED. STATES HEAT OR COLD DOES NOT TYPICALLY HELP. HAS BEEN HAVING INTERMITTENT PAIN TO NECK FOR SEVERAL YEARS
--- NOTE | 2021-10-25 01:46 | NUR ---
UP TO THE BR TO VOID. REQUESTS A SNACK. PEANUT BUTTER AND CRACKERS GIVEN. IVF INFUSING WITHOUT ISSUE.
--- NOTE | 2021-10-25 03:45 | NUR ---
IN TO ASSIST PT WITH IV POLE, UNPLUGGED AND INDP TO TOILET, BACK TO BED NO FURTHER NEEDS
--- NOTE | 2021-10-25 05:34 | NUR ---
TYLENOL WAS SUCCESSFULLY GIVEN TO REDUCE PAIN TO NECK. SLEPT WELL THROUGH THE NIGHT. VOIDING CLEAR YELLOW URINE. UP WITH SBA
--- NOTE | 2021-10-25 07:16 | NUR ---
UP TO VOID AND THEN STOOD AT SINK AND BRUSHED TEETH. CALL LIGHT WITHIN REACH. DENIES ANY UNMET NEEDS
--- NOTE | 2021-10-25 07:18 | NUR ---
REPORT RECEIVED, FROM BETHANY WELSH. PT RESTING IN BED, WATCHING TV. PT ALERT AND OREINTED AND STATES HE IS HOPING TO GO HOME TODAY. PT REPORTS FEELING "MUCH BETTER" OVER ALL. STAND BY ASSIST UP TO RESTROOM. NO ADDITIONAL BOWEL MOVEMENTS NOTED, VOIDED ONLY. PT PERFORMS SELF PATRICIA CARE. STAND BY ASSIST BACK TO BED. NO ADDITIONAL REQUESTS OR COMPLAINTS. CALL LIGHT WITHIN REACH. BED RAILS UP.
--- NOTE | 2021-10-25 08:04 | NUR ---
MORNING ASSESSMENT AND MEDICATION DUE. PT SITTING ON EDGE OF BED EATING BREAKFAST. PT REQUESTS THAT HOME METER BE USED TO CHECK IS BLOOD SUGAR RATHER THAN A FINGER POKE. THIS MORNING ACCU CHECK WAS 159 ADN HOME METER READ 151. MESSAGE GIVEN TO CHARGE NURSE WHO STATES SHE WILL TALK WITH MD DURING MORNING MEETING. PT DENIES PAIN AND NAUSEA. PT ALERT AND OREINTED TO ALL ALTHOUGH OCCATIONALLY FORGETFUL ABOUT SPECIFICS OF EVENTS. NEUROPATHY CONTINUES PER PTS BASELINE, GABAPENTIN GIVEN. STAND BY ASSIST UP TO CHAIR. PT STEADY ON FEET, STRONG AND MOVES EASILY. LUNG SOUNDS CLEAR. HEART TONES REGULAR. BOWEL TONES HEARD. PT REPORTS HE HAS NOT HAD ANY ADDIITONAL BOWEL MOVEMENTS. MONITORING AIT LABS, IMPROVING. NO ADDITIONAL REQUESTS OR COMPLAINTS. CALL LIGHT WITHIN REACH.
--- NOTE | 2021-10-25 09:57 | NUR ---
THIS RN TO ROOM TO CHECK ON PT. PT FINISHED WITH SHOWER AND UP TO CHAIR. PT DENIES PAIN AND NAUSEA. PT UPDATED ON PLAN OF CARE. PT VERBALIZES UNDERSTANDING AND STATES HIS QUESTIONS HAVE BEEN ANSWERED. NO ADDITIONAL REQUESTS OR COMPLAINTS. CALL LIGHT WITHIN REACH.
--- NOTE | 2021-10-25 11:29 | NUR ---
THIS RN TO ROOM TO CHECK ON PT. PT UP TO CHAIR. PT DENEIS PAIN AND NAUSEA. BLOOD SUGAR CHECKED WITH PTS HOME IMPLANTED MONITOR = 194. PT DENIES ADDITOINAL REQUESTS OR COMPLAINTS. ICE WATER REFILLED. CALL LIGHT WITHIN REACH.
--- NOTE | 2021-10-25 12:05 | NUR ---
THIS RN TO ROOM TO CHECK ON PT. BLOOD SUGAR VARIFIED AGAIN WITH PTS HOME IMPLANTED MONITOR, 188 AT THIS TIME. SEE MAR FOR INSULIN GIVEN. PT DENIES PAIN AND NAUSEA. PT REPORTS A GOOD APPITITE, NO ADDITIONAL DIARRHEA NOTED. PT DENIES ADDITIONAL REQUESTS OR COMPLAINTS. CALL LIGHT WITHIN REACH.
[2021-10-25] MEDS ORDERED: GABAPENTIN600 MG PO (13:15)
--- NOTE | 2021-10-25 13:55 | NUR ---
PT READY FOR DISCHARGE. PT DRESSED WITH STAND BY ASSIST. VITAL SIGNS STABLE. IV DC'D BY MEENU, CUPOLA LINER, GAUZE AND COBAN APPLIED. DISCHARGE INSTRUCTIONS REVIEWED WITH PT. PT VERBALIZES AND REPEATS BACK, UNDERSTANDING OF INSTRUCTIONS, MEDICATIONS, FOLLOW UP AND HYDRATION. PT STATES HIS QUESTIONS HAVE BEEN ANSWERED. PT DENIES ADDITIONAL REQUESTS OR COMPLAINTS. PT WHEELED FROM MED/SURG TO MEET . NO ADDITIONAL REQUESTS OR CONCERNS.
--- NOTE | 2021-10-26 17:08 | EKG ---
[facility] [address] [place] [address] Signed Sinus tachycardia Otherwise normal ECG When compared with ECG of 04-JUN-2021 14:34, Nonspecific T wave abnormality no longer evident in Inferior leads Confirmed by SHASTA HERNANDEZ MD ([id number]) on 10/26/2021 5:07:55 PM Electronically Signed By: SHASTA HERNANDEZ MD 10/26/21 1708 PATIENT NAME: OHNANCY Electrocardiogram DATE OF : 59 PHYSICIAN: SHASTA HERNANDEZ MD REPORT #: [id number] REPORT IS CONFIDENTIAL AND NOT TO BE RELEASED WITHOUT AUTHORIZATION
== END 2021-10-25 13:55 | disposition home or self-care (01) | DRG 683 ==
LOC: ED 12:13 → MS 17:04
PROVIDERS: ADMIT Internal Medicine; ATTEND Internal Medicine
DX: N17.9 Acute kidney failure, unspecified (principal); A09 Infectious gastroenteritis and colitis, unspecified; K21.9 Gastro-esophageal reflux disease without esophagitis; E11.42 Type 2 diabetes mellitus with diabetic polyneuropathy; I12.9 Hypertensive chronic kidney disease with stage 1 through stage 4 chronic kidney disease, or unspecified chronic kidney disease; N18.32 Chronic kidney disease, stage 3b; E78.5 Hyperlipidemia, unspecified; E86.0 Dehydration; Z20.822 Contact with and (suspected) exposure to COVID-19; Z88.1 Allergy status to other antibiotic agents; Z88.0 Allergy status to penicillin; Z89.422 Acquired absence of other left toe(s); Z89.421 Acquired absence of other right toe(s); Z90.89 Acquired absence of other organs; Z79.899 Other long term (current) drug therapy; Z96.641 Presence of right artificial hip joint; Z90.49 Acquired absence of other specified parts of digestive tract; Z79.82 Long term (current) use of aspirin; Z79.4 Long term (current) use of insulin; Z79.84 Long term (current) use of oral hypoglycemic drugs
CPT/HCPCS: 36415; 80048; 80053; 81001; 82040; 82306; 82565; 82570; 83036; 83735; 84300; 84484; 84520; 84550; 85025; 93005; 93010; 96374; 99285-25; A9270; C9803; J1650; J1815; J2405; J3475; J7030; J7121; U0003

== ENCOUNTER 2022-02-25 16:11 | Emergency (ER) | payer MEDICARE, OTHER ==
[~2022-02-25] VITALS: Ht 177.8 cm; Wt 94.8 kg
[~2022-02-25 16:11] MED LIST changes: +CALCIUM + D3 E1 EACH PO; +FEOSOL325 MG PO; -IRON325 MG PO; +LANTUS100 UNITS/ SUB-Q; +MAGNESIUM400 MG PO; +NOVOLIN R100 UNIT/1 INJ; +OZEMPIC1 MG/0.71 SUB-Q; +VITAMIN C500 M5 PO; +VITAMIN D350 MC4 PO
--- OUTSIDE RECORDS SUMMARY | 2022-02-25 16:14 | XMS ---
PreManage Notification: NANCY [place] Security Armament Installer Events No recent Security Events currently on file [facility] LIDA SHARMA Physician Sustain Engineer 02/23/2019-Current PHONE: Unknown KWADWO BAUTISTA Nurse Practitioner: Family Current PHONE: Unknown Arabella has no Care Guidelines for this patient. Care History Medical/Surgical 06/16/2021 [facility] - PATIENT IS [facility] ELIGIBLE, \T\middot;\T\nbsp; PLEASE REFER PATIENT TO [facility] FOR NON EMERGENT MEDICAL NEEDS. \T\middot;\T\nbsp; [facility] CAN SEE PATIENTS SAME DAY FOR APTS IF PATIENT CALLS FIRST THING IN THE MORNING. E.D. VISIT COUNT (12 MO.) [address] [facility] TOTAL 5 NOTE: Visits indicate total known visits. ED/UCC VISIT TRACKING (12 MO.) 02/25/2022 16:12 [facility] TYPE: Emergency COMPLAINT: - DIZZINESS 12/08/2021 11:58 [facility] [place] TYPE: Emergency COMPLAINT: - POSS DEHYDRATION 10/23/2021 12:14 [facility] [place] TYPE: Emergency COMPLAINT: - SYNCOPE EPISODE 06/15/2021 10:29 [facility] [place] TYPE: Emergency COMPLAINT: - L FOOT SWELLING 06/04/2021 11:37 [facility] TYPE: Emergency COMPLAINT: - FALL, L SHOULDER PAIN/ INJ DIAGNOSES: - Allergy status to other antibiotic agents - Essential (primary) hypertension - Fall on same level, unspecified, initial encounter - Other shelter (current) drug therapy - Unspecified injury of left shoulder and upper arm, initial encounter - termite treater helper (current) use of insulin - Pain in left shoulder - Allergy status to penicillin - alf (current) use of aspirin - Type 2 diabetes mellitus without complications INPATIENT VISIT TRACKING (12 MO.) 12/08/2021 14:53 [facility] TYPE: Observation COMPLAINT: - SYNCOPE,CHICO DIAGNOSES: - Type 2 diabetes mellitus with diabetic neuropathy, unspecified - Acute kidney failure, unspecified - Type 2 diabetes mellitus with foot ulcer - Essential (primary) hypertension - Hyperkalemia - Gastro-esophageal reflux disease without esophagitis - Adverse effect of insulin and oral hypoglycemic [antidiabetic] drugs, initial encounter - Type 2 diabetes mellitus with other specified complication - Toxic gastroenteritis and colitis - Non-pressure chronic ulcer of other part of right foot with unspecified severity - Dehydration - Hyperlipidemia, unspecified - Acquired absence of right foot - Contact with and (suspected) exposure to COVID-19 10/23/2021 17:04 [facility] TYPE: Medical Surgical COMPLAINT: - CHICO DIAGNOSES: - Gastro-esophageal reflux disease without esophagitis - alf (current) use of insulin - Allergy status to other antibiotic agents - Other shelter (current) drug therapy - alf (current) use of aspirin - Hypertensive chronic kidney disease with stage 1 through stage 4 chronic kidney disease, or unspecified chronic kidney disease - Acquired absence of other left toe(s) - Dehydration - Acquired absence of other specified parts of digestive tract - Acquired absence of other organs - Other intermediate card tender (current) drug therapy - Allergy status to penicillin - Acquired absence of other right toe(s) - Infectious gastroenteritis and colitis, unspecified - Chronic kidney disease, stage 3b - alf (current) use of oral hypoglycemic drugs - Type 2 diabetes mellitus with diabetic polyneuropathy - Dehydration - Acquired absence of other organs - Acquired absence of other specified parts of digestive tract - Chronic kidney disease, stage 3b - termite treater helper (current) use of oral hypoglycemic drugs - Acute kidney failure, unspecified - Infectious gastroenteritis and colitis, unspecified - Type 2 diabetes mellitus with diabetic polyneuropathy - Presence of right artificial hip joint - alf (current) use of aspirin - Contact with and (suspected) exposure to COVID-19 - Hyperlipidemia, unspecified - Hyperlipidemia, unspecified - Allergy status to other antibiotic agents - Acquired absence of other right toe(s) - Contact with and (suspected) exposure to COVID-19 - Presence of right artificial hip joint - termite treater helper (current) use of insulin - Acquired absence of other left toe(s) - Gastro-esophageal reflux disease without esophagitis - Allergy status to penicillin - Hypertensive chronic kidney disease with stage 1 through stage 4 chronic kidney disease, or unspecified chronic kidney disease 06/15/2021 18:09 [facility] TYPE: Medical Surgical COMPLAINT: - FOOT ULCER DIAGNOSES: - Type 2 diabetes mellitus with foot ulcer - Type 2 diabetes mellitus with diabetic neuropathic arthropathy - Non-pressure chronic ulcer of left heel and midfoot with unspecified severity - Personal history of Methicillin resistant Staphylococcus aureus infection - Type 2 diabetes mellitus with diabetic polyneuropathy - Cutaneous abscess of left foot - Acquired absence of other right toe(s) - alf (current) use of aspirin - alf (current) use of aspirin - termite treater helper (current) use of insulin - Type 2 diabetes mellitus with diabetic polyneuropathy - Hyperlipidemia, unspecified - Personal history of Methicillin resistant Staphylococcus aureus infection - Cellulitis of left lower limb - Gastro-esophageal reflux disease without esophagitis - Acquired absence of other organs - Presence of right artificial hip joint - Essential (primary) hypertension - Hyperlipidemia, unspecified - Allergy status to other antibiotic agents - Type 2 diabetes mellitus with diabetic neuropathic arthropathy - Acquired absence of other organs - Acquired absence of other specified parts of digestive tract - Allergy status to penicillin - Contact with and (suspected) exposure to COVID-19 - Other shelter (current) drug therapy - Cutaneous abscess of left foot - Type 2 diabetes mellitus with other skin complications - Allergy status to other antibiotic agents - Essential (primary) hypertension - Allergy status to penicillin - Acquired absence of other specified parts of digestive tract - Presence of right artificial hip joint - Gastro-esophageal reflux disease without esophagitis - Acquired absence of other right toe(s) - Other shelter (current) drug therapy - alf (current) use of insulin - Cellulitis of left lower limb - Acquired absence of other left toe(s) - Non-pressure chronic ulcer of left heel and midfoot with unspecified severity - Acquired absence of other left toe(s) [email or web address]
[2022-02-25] MEDS ORDERED: TRULICITY1.5 MG/0.5 SQ (16:34)
[2022-02-25] MEDS ORDERED: JARDIANCE10 MG PO (16:34)
[2022-02-25] MEDS ORDERED: DOXYCYCLINE MO100 M1 PO (16:35)
== END 2022-02-25 17:02 | disposition home or self-care (01) ==
LOC: ED 16:11
DX: N05.9 Unspecified nephritic syndrome with unspecified morphologic changes (principal); E11.21 Type 2 diabetes mellitus with diabetic nephropathy; I10 Essential (primary) hypertension; Z88.1 Allergy status to other antibiotic agents; Z88.0 Allergy status to penicillin; Z88.8 Allergy status to other drugs, medicaments and biological substances; Z79.899 Other long term (current) drug therapy
CPT/HCPCS: 99283

== ENCOUNTER 2023-05-29 08:54 | Inpatient (IN) | payer MEDICARE, OTHER ==
[~2023-05-29] VITALS: Ht 177.8 cm; Wt 97.3 kg
[~2023-05-29 08:54] MED LIST changes: +DOXYCYCLINE MO100 M1 PO; +JARDIANCE10 MG PO; +TRULICITY1.5 MG/0.5 SQ
--- OUTSIDE RECORDS SUMMARY | 2023-05-29 08:57 | XMS ---
PreManage Notification: NANCY [place] Security Patient Clerical Assistant Events No recent Security Events currently on file [facility] LIDA SHARMA Physician Licensed Life And Health Agent 02/23/2019-Current PHONE: Unknown KWADWO BAUTISTA Nurse Practitioner: Family Current PHONE: [phone] Arabella has no Care Guidelines for this patient. Care History Medical/Surgical 06/16/2021 [facility] - PATIENT IS [facility] ELIGIBLE, \T\middot;\T\nbsp; PLEASE REFER PATIENT TO [facility] FOR NON EMERGENT MEDICAL NEEDS. \T\middot;\T\nbsp; [facility] CAN SEE PATIENTS SAME DAY FOR APTS IF PATIENT CALLS FIRST THING IN THE MORNING. E.D. VISIT COUNT (12 MO.) 1 [facility] TOTAL 1 NOTE: Visits indicate total known visits. ED/UCC VISIT TRACKING (12 MO.) 05/29/2023 08:54 [facility] TYPE: Emergency COMPLAINT: - LT FOOT PAIN INPATIENT VISIT TRACKING (12 MO.) No inpatient visits to display in this time frame [email or web address]
[2023-05-29 09:41] LABS: BASOPHILS 0.7 % (0-2); EOSINOPHILS 1.1 % (0-6); HEMATOCRIT 37.9 % (35.0-50.0); HEMOGLOBIN 12.6 g/dL (12.0-18.0); LYMPHOCYTES 19.7 % (24-44); MCH 28.8 (27-36); MCHC 33.4 g/dl (30-36); MCV 86.1 fl (81-99); MONOCYTES 6.3 % (0-12); NEUTROPHILS 72.2 % (39-80); PLATELET COUNT 222 K/uL (140-440); RBC 4.39 M/ul (4.3-5.7); RDW 13.3 (10.5-15.0)
[2023-05-29 09:55] LABS: ALBUMIN 3.2 g/dL (3.4-5.0); ALBUMIN/GLOBULIN RATIO 0.84 (1.1-2.4); ANION GAP 13.5 (7-21); BILIRUBIN, TOTAL 0.8 ng/dL (0.2-1.0); BUN/CREATININE RATIO 16.9 (6.0-28.6); CALCIUM 8.1 mg/dL (8.5-10.1); CREATININE, SERUM 2.13 mg/dL (0.70-1.30); POTASSIUM 4.5 mmol/L (3.5-5.1)
[2023-05-29 09:58] LABS: LACTIC ACID, BLOOD 0.8 mmol/L (0.4-2.0)
[2023-05-29 10:19] LABS: BILIRUBIN, URINE POSITIVE (negative); BLOOD/HGB, URINE NEGATIVE (Negative); KETONE, URINE NEGATIVE (Negative); LEUK ESTERASE, URINE NEGATIVE (negative); NITRITE, URINE NEGATIVE (negative); PH, URINE 5.5 (5-7)
[2023-05-29 10:46] LABS: ERYTHROCYTE SEDIMENTATION RATE 23
[2023-05-29] MEDS ORDERED: TRULICITY4.5 MG/0.5 SUB-Q (17:06)
[2023-05-29] MEDS ORDERED: JARDIANCE25 MG PO (17:07)
--- NOTE | 2023-05-29 17:07 | NUR ---
PT ARRIVED FROM ER BY STRETCHER, PT SLIDES SELF OVER TO BED FROM STRETCHER. PT ALERT AND OREINTED TO ALL. REPORTS 5/10 PAIN IN LEFT FOOT. SEE MAR FOR MEDICAITON GIVEN. VITAL SIGNS STABLE. REPORT RECEIVED FROM BETHANY TUCKER. PTS BLOOS SUGAR 117 PER HIS HOME MONITOR WHICH IS ON THE BACK OF HIS LEFT ARM. BLOOD SUGAR TAKEN WITH HOSPITAL MONITOR = 120. MEDICATIONS GIVEN. PT INERACTING APPROPRIATLY WITH CARES AND ASKING APPROPIRATE QUESTIONS. INTAKE ASSESSMENTS COMPLETED. HEART TONES REGULAR. LUNG SOUNDS CLEAR. ABDOMEN SOFT AND NON TENDER WITH ACTIVE BOWEL TONES. PT REPORTS HE HAD THE CHILLS YESTERDAY AND WOKE UP SWEATY. THIS IS WHEN HE FIRST NOTICED THAT HIS FOOT WAS HURTING. LEFT FOOT MILDY SWOLLEN, REDNESS SEEN TO TOP AND BOTTOM OF FOOT. STRONG TIBIAL AND PEDIAL PULSES. LEFT FOOT HOT TO TOUCH. PHOTOGRAPHS TAKEN. NO OPEN SKIN WOUNDS SEEN AT THIS TIME. SCABS FROM OLD WOUNDS OR POSSIBLE INJURIES PRESENT ON THE BOTTOM OF LEFT FOOT. TOES MISSING PER BASELINE. NO DRAINAGE OR DRESSINGS IN PLACE. PT REPORTS HE HAD "A LITTLE WET SPOT" ON HIS SOCKS THIS MORNING. DINNER DELIVERED. NO ADDITIONAL REQUESTS OR COMPLAINTS AT THIS TIME. CALL LIGHT WITHIN REACH. BED RAILS UP.
[2023-05-29 17:08] VITALS: BP 132/68
[2023-05-29] MEDS ORDERED: NOVOLOG FL100 UNIT/1 SUB-Q (17:08)
[2023-05-29] MEDS ORDERED: BASAGLAR K100 UNIT/1 SUB-Q (17:08)
--- NOTE | 2023-05-29 17:58 | NUR ---
WOUND CARE CONSULTED FOR LEFT FOOT ULCER. PT ADMITTED 05/29/23 FOR LEFT FOOT PAIN WITH CAT SCAN INDICATING LEFT FOOT ABSCESS ALONG THE PLANTAR ASPECT OF THE HEAD OF THE 2ND METATARSAL AND POSSIBLE OSTEOMYELITIS AFFECTING THE 3RD METATARSAL. PT HX OF DMII AND MULTIPLE TOE AMPUTATIONS RELATED TO DIABETIC ULCERS. 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 2ND AND 4TH TOES NOTED TO BE ABSENT. CALLUSES X4 NOTED TO PLANTAR SURFACE. CALLUS OVER 3RD METATARSAL HEAD HAS DARK DISCOLORATION AT THE CENTER, CONCERN OF OLD BLEEDING UNDER THE CALLUS HERE. SMALL ULCER WITH DESICCATED WOUND BASE NOTED OVER 2ND METATARSAL HEAD. FOOT IS RED, SWOLLEN AND WARM TO THE TOUCH. NO OTHER EVIDENCE OF OPEN WOUNDS NOTED. RECOMMENDATIONS: ULCER OVER 2ND METATARSAL HEAD: PAINT WITH IODINE SWABS DAILY. OFF LOAD LEFT FOOT PODIATRY HAS BEEN CONSULTED, WILL APPRECIATE THEIR ADVICE.
--- NOTE | 2023-05-29 18:22 | NUR ---
THIS RN TO ROOM TO CHECK ON PT. PT RESTING IN BED WATCHING TV. PT REPORTS PAIN HAS IMPROVED NOW 07/14 AND STATES "I CAN'T REALLY FEEL IT." WOUND CONSULTATION FINISHING BY WOUND CONSULT RNLIDA. PT DENIES REQUESTS OR COMPLAINTS AT THIS TIME. CALL LIGHT WITHIN REACH. BED RAILS UP. BED ALARM ON.
--- NOTE | 2023-05-29 18:27 | NUR ---
PT ADMITTED THIS SHIFT FOR OSTEOMYOLITIS OF LEFT FOOT. PT UP WITH 1 PERSON ASSIST, UNSTEADY ON FEET. PT TOELRATING 60G CARB DIET WITH GOOD APPITITE. BLOOD SUGAR CHECKS WITH SLIDING SCALE INSULIN. PT ALERT AND OREINTED TO ALL REPORTS 1-5/10 PAIN TO LEFT FOOT, PRN PAIN MEDICATION GIVEN WITH GOOD RESTULTS. LEFT FOOT MILDY SWOLLEN WITH REDNESS AND HEAT NOTED. NOT OBVIOUSLY OPEN WOUNDS. WOUND CONSULTATION COMPLETED. PODIETRY CONSULTATION IN PLACE. IV ABX GIVEN. NO DRESSIN IN PLACE THIS SHIFT. NO DRAINAGE SEEN THIS SHIFT. PHOTOGRAPHS TAKEN AND PLACED ON CHART. WOUND TREATMENT ORDERS IN PLACE PER WOUND CONSULT NURSE. MONTORING LABS. URINARY RETENETION NOTED, BATISTA CATHETER IN PLACE, QUANTITY SUFFICIENT. FLOMAX STARTED. AWAITING BLOOD CULTURE RESULTS. PT USES CALL LIGHT AND MAKES NEEDS KNOWN.
--- NOTE | 2023-05-29 19:30 | NUR ---
BEDSIDE SHIFT REPORT RECEIVED FROM ENOC RN AND KRYSTIN SIMS, PT ALERT, WITHOUT REQUESTS AT THIS TIME, RESTING ON LEFT SIDE, A/B INFUSING WELL.
[2023-05-29 21:15] VITALS: BP 102/53
--- NOTE | 2023-05-29 21:15 | NUR ---
RN TO BEDSIDE, PT ALERT, VS AND ASSESSMENT COMPLETED, ACCUCHECK DONE AND 176, 3UNITS HUMALOG GIVEN AND GLARDINE 10UNITS GIVEN PER ORDER, A/B COMPLETED AND SL FLUSHES WELL, SITE INTACT, VS STABLE AND PT AFEBRILE, BETADIME SWAB TO LEFT FOOT, SMALL DRIED ULCER, DONE AND REMAINS OPEN TO AIR, WARM BLANKET GIVEN, PT REQUESTING BED TIME SNACK, SANDWICH AND MILK GIVEN.
--- NOTE | 2023-05-29 22:10 | NUR ---
PT WATCHING TV, WITHOUT REQUESTS AT THIS TIME.
--- NOTE | 2023-05-29 23:47 | NUR ---
BED ALARM GOING OFF, PT SITTING ON SIDE OF BED, REQUESTING HELP UP TO BR, UP WITH FFW AND STAND BY ASSIST, LIMITED TOE TOUCH ON LEFT FOOT, UP TO BR ATTEMPTING TO HAVE A STOOL.
--- NOTE | 2023-05-29 23:53 | NUR ---
PT CALLED RN, ASSISTED BACK TO BED, UNABLE TO HAVE A BM AT THIS TIME, PT REQUESTING TYLENOL FOR ACHINESS IN FEET WHEN AMBULATING, MEDICATED WITH TYLENOL 2 TABS PER ORDER FOR PAIN 10/12, BED ALARM, FRESH WATER GIVEN, PT WITHOUT FURTHER REQUESTS.
[2023-05-30] VITALS (7 sets, daily range): BP systolic 94–118; BP diastolic 45–74
--- NOTE | 2023-05-30 00:56 | NUR ---
PT APPEARS TO SLEEP, LAYING ON SIDE, RESP EVEN AND REG.
--- NOTE | 2023-05-30 02:41 | NUR ---
VS COMPLETED PER TRACY RN, REVIEWED, PT REPORTED TO HAVE HAD NO COMPLAINTS AT THIS TIME.
--- NOTE | 2023-05-30 05:00 | NUR ---
LAB IN FOR AM BLOOD DRAW, PT BACK TO SLEEP WITHOUT REQUESTS.
[2023-05-30 05:26] LABS: BASOPHILS 0.2 % (0-2); EOSINOPHILS 2.4 % (0-6); HEMATOCRIT 36.5 % (35.0-50.0); LYMPHOCYTES 23.9 % (24-44); MCH 28.6 (27-36); MCHC 32.9 g/dl (30-36); MCV 87.1 fl (81-99); MONOCYTES 6.7 % (0-12); NEUTROPHILS 66.8 % (39-80); PLATELET COUNT 233 K/uL (140-440); RBC 4.19 M/ul (4.3-5.7); RDW 13.4 (10.5-15.0)
[2023-05-30 05:38] LABS: ANION GAP 15.3 (7-21); BUN/CREATININE RATIO 19.14 (6.0-28.6); CALCIUM 8.6 mg/dL (8.5-10.1); CREATININE, SERUM 1.88 mg/dL (0.70-1.30); POTASSIUM 4.3 mmol/L (3.5-5.1)
--- NOTE | 2023-05-30 06:05 | NUR ---
PT AWAKEN FOR VS, VS AND I/O DONE, PT WITHOUT COMPLAINTS AT THIS TIME, RT A/B STARTED PER ORDER, PT WITHOUT REQUESTS, BATISTA EMPTIED YELLOW URINE, PT RESTING, IV SITE PATENT, SITE INTACT.
--- NOTE | 2023-05-30 07:25 | NUR ---
REPORT RECEIVED FROM BARBI SIMS. PT RESTING IN BED ON RIGHT SIDE WITH EYES CLOSED, RESPIRATIONS EVEN AND UNLABORED. BED RAILS UP. CALL LIGHT WITHIN REACH. PT ALLOWED TO REST. THIS RN ASSUMING CARE OF PT WITH ELISABETH SIMS.
--- NOTE | 2023-05-30 07:26 | NUR ---
RECEIVED REPORT FROM BETHANY LANDON. PT RESTING WITH EYES CLOSED, BREATHING EVEN AND UNLABORED. ASSUMING CARE OF PT WITH BETHANY MCCLELLAND.
--- NOTE | 2023-05-30 07:45 | NUR ---
IN WITH PT FOR BS CHECK. PT IS ASLEEP ON HIS RIGHT SIDE IN BED BUT AWAKENS EASILY TO VOICE. DENIES NEEDS AT THIS TIME. CALL LIGHT, BEDSIDE TABLE, AND PERSONAL BELONGINGS IN REACH.
--- NOTE | 2023-05-30 08:55 | NUR ---
BED ALARM SOUNDING. PT GETTING UP TO USE RESTROOM. THIS RN TO ROOM. FWW PROVIDED TO KEEP WEIGHT OFF OF LEFT FOOT. STAND BY ASSIST WITH FWW UP TO RESTROOM, LINE AND TUBE MANAGEMENT ALSO PROVIDED. BROWN SMEAR SEEN ON PTS SHEETS, LIKELY STOOL. LINENES CHANGED. STAND BY ASSIST WITH FWW UP TO CHAIR. PT FINISHED WITH LUNCH. NO ADDITIONAL REQUSTS OR COMPLAINTS. CALL LIGHT WITHIN REACH.
--- NOTE | 2023-05-30 09:13 | NUR ---
MORNING ASSESSMENT AND MEDICATIONS DUE. PT STATES PAIN IS 2/10, DENIES NEED FOR PAIN MEDICATION AT THIS TIME. ALL EXTREMETIES ABLE TO PUSH AGAINST RESISTANCE. BASELINE NUMBNESS IN BLE PER PT. PT CONTINUES TO AMBULATE X1 PERSON ASSIST WITH FWW. PT MILDLY UNSTEADY AT TIMES ON FEET LIKELY D/T MULTIP. TOE AMPUTATIONS AND FOOT PAIN. PULSES STRONG IN ALL EXTREMETIES, GENERALIZED EDEMA REMAINS IN LLE. BASELINE NUMBNESS IN BLE PRESENT, TOP OF LEFT FOOT REDNESS AND HEAT IMPROVING, STILL PRESENT. ACTIVE BOWEL TONES, PT HAS BM THIS MORNING. PT TOLERATING 60G CARB DIET WELL. BATISTA CATHETER IN PLACE, CATHETER CARE PROVIDED THIS MORNING. QUANTITY SUFFICIENT CLEAR YELLOW URINE DRAINING FROM CATHETER VIA GRAVITY. PT STATES NO FURTHER NEEDS AT THIS TIME, CALL LIGHT WITHIN REACH, BED RAILS UP. PT ASKS ABOUT RESTARTING HOME GABAPENTINMD CONSULTED, NEW ORDERS GIVEN, ORDERS ENTERED, REPEAT BACK PERFORMED. PT UP TO CHAIR WITH LEGS ELEVATED.
--- NOTE | 2023-05-30 10:41 | NUR ---
THIS RN TO ROOM TO CHECK ON PT. IV ABX COMPLETE. PIV FLUSHED AND SALINE LOCKED. ALCOHOL CAP APPLIED. PT REPORTS HE IS READY FOR A SHOWER. 1 PERSON ASSIST FOR LINE AND TUBE MANAGEMENT WITH FWW UP TO RESTROOM. PT HAS ADDITIONAL BOWEL MOVEMENT, PER CARE PER PT. IV COVERED. PT UP TO SHOWER. INDEPENDANT IN SHOWER. MEDICATION GIVEN. CALL LIGHT WITHIN REACH, FALL PRECAUTIONS REVIEWED WITH PT AND PT AGREES TO CALL PRIOR TO GETTING UP AFTER SHOWER.
--- NOTE | 2023-05-30 11:16 | NUR ---
PT CALL LIGHT ON. PT FINISHED WITH SHOWER. NON SKID SOCKS APPLIED. STAND BY ASSIST WITH FWW BACK TO CHAIR. BATHROOM CLEANED. PT REPORTS PAIN REMAINS WELL CONTROLLED AT 07/14, DENIES NEED FOR ADDITIONAL PAIN MEDICATION. PT TALKIGN WITH FAMILY ON THE PHONE. NO ADDITIONAL REQUESTS OR COMPLAINTS. CALL LIGHT WIHTIN REACH. ICE WATER REFILLED.
--- NOTE | 2023-05-30 11:35 | NUR ---
medications reconciled using pharmacy records and patient interview
--- NOTE | 2023-05-30 12:08 | NUR ---
HOURLY ROUNDING. PT DENIES HAVING ANY PAIN, PT STATES NO NEEDS AT THIS TIME. CALL LIGHT WITHIN REACH, LEGS ELEVATED IN CHAIR.
--- NOTE | 2023-05-30 12:29 | NUR ---
Took lunch tray in to pt. Pt is resting in chair, reclined, with eyes closed, television on, but awakens easily to quiet noises. Denies further needs at this time and has everything needed in reach.
--- NOTE | 2023-05-30 13:34 | NUR ---
THIS RN TO ROOM TO CHECK ON PT. PT UP TO CHAIR, FINISHED WITH LUNCH, VISITING WITH SISTER. PT DENIES PAIN AND NAUSEA. ICE WATER REFILLED. CALL LIGHT WITHIN REACH. PT DENIES ADDITIONAL REQUESTS OR COMPLAINTS.
--- NOTE | 2023-05-30 14:06 | NUR ---
AFTERNOON ASSESSMENT. PT UP TO CHAIR WATCHING TV WITH SISTER. PT DENIES ANY PAIN AT THIS TIME. IV ASSESSED, WNL. CATHETER IN PLACE, DRAINING QUANTITY SUFFICIENT YELLOW URINE, SCANT AMOUNT OF PARTICLES IN URINE VIA GRAVITY, NO REDNESS/PAIN/SWELLING AT INSERTION SITE. WOUND ON BOTTOM LEFT FOOT UNCHANGED, TOP OF LEFT FOOT CONTINUES TO BE PINK WITH MILD SWELLING AND WARMTH, WOUNDS CONTINUE TO BE OPEN TO AIR. PT STATES NO NEEDS AT THIS TIME, CALL LIGHT WITHIN REACH, FOOT OF CHAIR RAISED.
--- NOTE | 2023-05-30 15:24 | NUR ---
THIS RN ANSWERS CALL LIGHT, PT STATES NEED TO USE RESTROOM, UP TO RESTROOM WITH FWW. PT HAS SMALL LOOSE BM. MEDICATION DUE, GIVEN (SEE EMAR). PT BACK TO BED WITH FWW. PT STATES NO FURTHER NEEDS AT THIS TIME. CALL LIGHT WITHIN REACH, SISTERS AT BEDSIDE, BED RAILS UP.
--- NOTE | 2023-05-30 16:18 | NUR ---
ADMIN AB. ANSWERED QUESTIONS REGARDING IT. DENIES FURTHER CONCERNS.
--- NOTE | 2023-05-30 16:30 | NUR ---
HOURLY ROUNDING. PT STATES PAIN IS 7/10, REQUESTS PAIN MEDICINE, GIVEN (SEE EMAR). PT REQUESTS MORE ICE WATER, GIVEN. PT STATES NO FURTHER NEEDS AT THIS TIME, CALL LIGHT WITHIN REACH, SISTERS AT THE BEDSIDE, BED RAILS UP.
--- NOTE | 2023-05-30 17:19 | NUR ---
MEDICATIONS DUE, GIVEN. PT SITTING UP IN BED EATING DINNER AND VISITING WITH BROTHER AT THE BEDSIDE. PT STATES 0/10 FOR PAIN. PT STATES NO FURTHER NEEDS AT THIS TIME, CALL LIGHT WITHIN REACH, BED RAILS UP.
--- NOTE | 2023-05-30 17:37 | NUR ---
PT ADMITTED HERE FOR OSTEOMYOLITIS OF LEFT FOOT. PT UP WITH 1 PERSON ASSIST/FWW, UNSTEADY ON FEET. PT TOELRATING 60G CARB DIET WITH GOOD APPITITE. BLOOD SUGAR CHECKS WITH SLIDING SCALE INSULIN. PT ALERT AND OREINTED TO ALL REPORTS 1-7/10 PAIN TO LEFT FOOT, PRN PAIN MEDICATION GIVEN WITH GOOD RESTULTS. LEFT FOOT MILDY SWOLLEN WITH REDNESS AND HEAT NOTED. NOT OBVIOUSLY OPEN WOUNDS. WOUND ASSESSMENT COMPLETED. PODIETRY CONSULTATION IN PLACE. IV ABX GIVEN. NO DRESSING IN PLACE THIS SHIFT. NO DRAINAGE SEEN THIS SHIFT. WOUND TREATMENT ORDERS IN PLACE PER WOUND CONSULT NURSE. MONTORING LABS. URINARY RETENETION NOTED, BATISTA CATHETER IN PLACE, QUANTITY SUFFICIENT. FLOMAX CONTINUED. AWAITING BLOOD CULTURE RESULTS. PT USES CALL LIGHT AND MAKES NEEDS KNOWN.
--- NOTE | 2023-05-30 18:51 | NUR ---
THIS RN TO ROOM TO CHECK ON PT. PT RESTING WITH EYES CLOSED. AWAKENS TO MOVEMENT IN THE ROOM. PT REPORTS PAIN IS WELL CONTROLLED. PT DENIES REQUESTS OR COMPLAINTS STATING HE IS JUST "READY TO REST." NO ADDITIONAL REQUESTS OR COMPLAINTS. CALL LIGHT WITHIN REACH. BED RAILS UP.
--- NOTE | 2023-05-30 19:25 | NUR ---
SHIFT REPORT RECEIVED FROM ELISABETH SIMS AND KRYSTIN SIMS, PT RESTING QUIETLY, WITHOUT REQUESTS.
--- NOTE | 2023-05-30 21:30 | NUR ---
PT AWAKE AND ALERT, VS AND I/O DONE, ASSESSMENT COMPLETED, BATISTA OUT 200ML YELLOW URINE, PT TAKING FLUIDS WELL, A/B COMPLETE AND SL FLUSHES WELL, BETADINE SWAB TO LEFT SOLE OF FOOT TO SMALL SCABBED ULCER AREA, FEET ELEVATED ON PILLOWS. PT REQUESTING HS SNACK.
--- NOTE | 2023-05-30 21:45 | NUR ---
ACCUCHECK DONE AND IS 234.
--- NOTE | 2023-05-30 21:45 | NUR ---
ACCUCHECK DONE 234, HUMALOG 5 UNITS SQ GIVEN AND GLARGINE 10UNITS SQ GIVEN.
--- NOTE | 2023-05-30 21:50 | NUR ---
PT DECLINES CATH CARE BY RN STATING HE HAD A SHOWER TODAY.
--- NOTE | 2023-05-30 22:18 | NUR ---
PT REQUESTING TYLENOL FOR ACHY FEET, MEDICATED PER ORDER. PAIN 6/10, RT GLARGINE 10 UNITS GIVEN PER ORDER, HUMALOG 5 UNITS GIVEN SQ PER SS ORDER. PT WITHOUT OTHER REQUESTS, RESTING.
--- NOTE | 2023-05-30 22:20 | NUR ---
PT GIVEN HS SNACK PER REQUEST.
--- NOTE | 2023-05-30 23:20 | NUR ---
PT RESTING QUIETLY WITH EYES CLOSED, RESP EVEN AND REG.
--- NOTE | 2023-05-31 01:10 | NUR ---
PT RESTING QUIETLY WITH EYES CLOSED, RESP EVEN AND REG.
--- NOTE | 2023-05-31 03:00 | NUR ---
PT APPEARS TO SLEEP, RESP EVEN AND REG.
--- NOTE | 2023-05-31 04:10 | NUR ---
PT APPEARS TO SLEEP, RESP EVEN AND REG.
[2023-05-31 05:24] LABS: EOSINOPHILS 4.1 % (0-6); HEMATOCRIT 36.4 % (35.0-50.0); LYMPHOCYTES 23.3 % (24-44); MCH 28.5 (27-36); MCHC 33.1 g/dl (30-36); MCV 86.2 fl (81-99); MONOCYTES 7.1 % (0-12); NEUTROPHILS 64.5 % (39-80); PLATELET COUNT 231 K/uL (140-440); RBC 4.22 M/ul (4.3-5.7); RDW 13.3 (10.5-15.0)
[2023-05-31 05:40] LABS: ANION GAP 14.4 (7-21); BUN/CREATININE RATIO 21.42 (6.0-28.6); CALCIUM 8.7 mg/dL (8.5-10.1); CREATININE, SERUM 1.82 mg/dL (0.70-1.30); POTASSIUM 4.4 mmol/L (3.5-5.1)
[2023-05-31 06:15] VITALS: BP 113/63
--- NOTE | 2023-05-31 06:15 | NUR ---
PT ASLEEP, AWAKENS EASILY, WITHOUT COMPLAINTS, ORDERED ANTIBODIC HUNG AND INFUSING WELL PER LEFT AC SL, VS STABLE, BATISTA EMPTIED FOR YELLOW URINE, PT CHEERFUL, WITHOUT REQUESTS AT THIS TIME.
--- NOTE | 2023-05-31 07:22 | NUR ---
VERBAL REPORT RECEIVED FROM BARBI Vinson RN. PT RESTS IN BED WITH EYES CLOSED, RESP EVEN AND UNLABORED, 16 RPM.
--- NOTE | 2023-05-31 09:18 | NUR ---
20G IV RFA INFUSING CEFEPIME. IV ESTABLISHED BY DANIELE Zaldivar RN. DRESSING C/D/I, NO LEAKING OR REDNESS NOTED.
--- NOTE | 2023-05-31 09:32 | NUR ---
FLUID REMOVED FROM BATISTA CATHETER BALLOON. CATHETER REMOVED, TIP INTACT. PT TOLERATED WELL.
[2023-05-31 10:56] VITALS: BP 111/65
--- NOTE | 2023-05-31 11:09 | NUR ---
PT VOIDS 225 MLS OF CLEAR YELLOW URINE.
--- NOTE | 2023-05-31 11:30 | NUR ---
DR. CONTEH INTO SEE PT. REMOVES CALLUS OVER 3RD METATARSAL HEAD.
--- NOTE | 2023-05-31 12:24 | NUR ---
MRI PATIENT SCREENING FORM COMPLETED WITH PT.
--- NOTE | 2023-05-31 13:53 | NUR ---
MS ROUNDS. PT APPEARED TO BE ATTEMPTING TO REST WITH DOOR CLOSED, CURTAIN PULLED TIGHT, AND LIGHTS OFF. DID NOT INTRUDE. PROVIDED PRAYER.
[2023-05-31 14:36] VITALS: BP 120/68
--- NOTE | 2023-05-31 15:00 | NUR ---
Spoke with Christopher. He lives He lives several miles out of town. His nephew lives with him. He states he doesn't realy require help, but his nephew will assist him if needed. He states he has seen Dr. Smith for several years for his foot wound. He is waiting for an MRI to see if he has osteo. Pt drives and cares for self. He does not use DME, but has a shower chair from his father. He does have any issues getting in or out of his home. He plans on dc in 1-2 days depending on the MRI. Denies financial issues.
--- NOTE | 2023-05-31 16:57 | NUR ---
PT TO DIAGNOSTIC IMAGING FOR MRI.
--- NOTE | 2023-05-31 17:29 | NUR ---
PT RETURNS FROM DIAGNOSTIC IMAGING.
[2023-05-31 18:24] VITALS: BP 125/70
--- NOTE | 2023-05-31 18:27 | NUR ---
PATIENT IN BED WATCHING TV. VISITOR IN ROOM. VITALS AND I&O'S CHARTED. FRESH WATER GIVEN. CALL LIGHT IN REACH. NO FURTHER NEEDS AT THIS TIME.
--- NOTE | 2023-05-31 19:15 | NUR ---
BEDSIDE REPORT RECEIVED FROM LIDA SIMS, PT SITTING ON SIDE OF BED, ALERT AND WITHOUT REQUESTS AT THIS TIME.
[2023-05-31 21:14] VITALS: BP 131/68
--- NOTE | 2023-05-31 21:27 | NUR ---
PT AWAKE AND ALERT, VS AND I/O DONE, ASSESSMENT COMPLETED, RT MEDS GIVEN, ACCUCHECK 256, HUMALOG 5 UNITS SQ GIVEN AND GLARGINE 10 UNITS SQ PER ORDER, PT MEDICATED WITH TYLENOL FOR FOOT DISCOMFORT 11/11. LEFT DRESSING DRY AND INTACT, TOES WARM, PINK. A/B INFUSING WELL PER RIGHT FA, SITE INTACT, PT HOPEFUL TO GO HOME TOMORROW, HS SNACK GIVEN.
--- NOTE | 2023-05-31 22:42 | NUR ---
ABX COMPLETED. SL. PT AWAKE, WATCHING TV, DENIES PAIN.
--- NOTE | 2023-05-31 22:55 | NUR ---
PT RESTING, WITHOUT COMPLAINTS.
--- NOTE | 2023-06-01 01:40 | NUR ---
PT APPEARS TO SLEEP, LAYING ON FAR RIGHT SIDE, RESP EVEN AND REG.
--- NOTE | 2023-06-01 03:26 | NUR ---
PT LAYING ON RIGHT SIDE, APPEARS TO SLEEP, RESP EVEN AND REG.
--- NOTE | 2023-06-01 05:00 | NUR ---
PT APPEARS TO SLEEP, RESP EVEN AND REG, WITHOUT DISTRESS.
[2023-06-01 05:24] LABS: BASOPHILS 0.9 % (0-2); EOSINOPHILS 6.4 % (0-6); HEMATOCRIT 35.8 % (35.0-50.0); HEMOGLOBIN 12.2 g/dL (12.0-18.0); LYMPHOCYTES 31.8 % (24-44); MCHC 34.1 g/dl (30-36); MONOCYTES 7.1 % (0-12); NEUTROPHILS 53.8 % (39-80); PLATELET COUNT 265 K/uL (140-440); RBC 4.21 M/ul (4.3-5.7)
[2023-06-01 05:34] LABS: ANION GAP 15.3 (7-21); BUN/CREATININE RATIO 21.01 (6.0-28.6); CALCIUM 8.6 mg/dL (8.5-10.1); CREATININE, SERUM 1.57 mg/dL (0.70-1.30); POTASSIUM 4.3 mmol/L (3.5-5.1)
--- NOTE | 2023-06-01 06:10 | NUR ---
PT AWAKE AND ALERT, VS STABLE, AFEBRILE, PT DENIES NEED FOR PAIN MED, LEFT FOOT DRESSING DRY AND INTACT, TOES WARM AND PINK, PEDAL PULSES STRONG, PT VOIDING WELL PER URINAL, A/B GIVEN PER ORDER PER RIGHT FA SL, BREAKFAST ORDER CALLED INTO DIETARY, PT RESTING QUIETLY WITHOUT COMPLAINTS.
[2023-06-01 06:42] VITALS: BP 117/67
--- NOTE | 2023-06-01 07:17 | NUR ---
VERBAL BEDSIDE REPORT RECEIVED FROM BARBI Vinson RN. PT AWAKE AND ALERT. DR. CONTEH IN ROOM, CHANGES DRESSING TO LEFT FOOT. NO SWELLING OR REDNESS NOTED TO LEFT FOOT THIS AM.
--- NOTE | 2023-06-01 07:35 | NUR ---
Spoke with Dr. Smith. MRI does not show osteo, but possible abcess. He plans on speaking with hospitalist and possible 2 weeks of IV antibiotics in DS.
[2023-06-01] MEDS ORDERED: TAMSULOSIN HCL0.4 MG PO (09:35)
[2023-06-01] MEDS ORDERED: DAPTOMYCIN500 MG IV (09:43)
[2023-06-01 10:04] VITALS: BP 117/62
--- NOTE | 2023-06-01 12:20 | NUR ---
MIDLINE NOTE: ASKED TO EVAL PATIENT FOR POTENTIAL MIDLINE PLACEMENT, PATIENT IS NEED OF IV ABX FOR A COUPLE OF WEEKS TO TREAT A FOOT WOUND. AFTER REVIEWING THE CHART AND INTERVIEWING THE PATIENT, NO ABSOLUTE CONTAINDICATIONS WERE IDENTIFIED. PT GAVE VERBAL CONSENT FOR MIDLINE PLACEMENT. PT HAD A PREVIOUS MIDLINE IN 2018 THAT THIS RN PLACED WELL, IN THE RIGHT BASILIC. PATIENT'S RIGHT ARM WAS EVALUATED FIRST USING THE SITE RITE U/S. PT'S BASILIC VEIN WAS EASILY IDENTIFIED, AND IT WAS ESTIMATED THAT A 4 FR CATHETER WOULD TAKE UP 37% OF THE VEIN DIAMTETER WITHOUT A TOURNIQUET. PT'S SKIN WAS NUMBED WITH 1% LIDOCAINE PRIOR TO STERILE PROCEDURE, BUT AFTER CHLORAHEXADINE WAS USED TO PREP THE SKIN. THEN SKIN WAS PREPPED FOLLOWING CDC RECOMMENDATIONS FOR STERILE PROCEDURE. BASILIC WAS ACCESSED AND TIP WAS LOCATED. MIDLINE CATHETER WAS EASILY ADVANCED INTO VEIN. MIDLINE FLUSHES WELL AND PULLS BLOOD BACK WITHOUT DIFFICULTY. STERILE DRESSING APPLIED. PT TOLERATED PROCEDURE WELL. PT GIVEN INSTRUCTIONS ON HOW TO CARE FOR LINE ONCE HE DISCHARGES HOME. PT ENCOURAGED TO ASK ANY QUESTIONS ABOUT HIS MIDLINE. REPORT GIVEN TO LIDA Ponce RN.
--- NOTE | 2023-06-01 13:30 | NUR ---
Spoke with Christopher. Discussed OP IV therapy in DS. He would like to be scheduled after 9am for his IV antibiotics in OP daily for the 14 days. Received completed orders for OP DS IV antibiotics. Printed chart, face sheet, H&P, Labs, MRI, DC summary and gave to Crystal in DS scheduling. Pt scheduled for tomorrow at 11:30. UPdated charge nurse and she wrote the appt on a card for pt. I spoke with Christopher and reminded he will need to go to admitting daily and check in. He states understanding. Pt will dc to home, midline was placed.
--- NOTE | 2023-06-01 13:32 | NUR ---
IV FROM LAC AND RFA REMOVED, TIP INTACT, GAUZE AND COBAN DRESSINGS APPLIED TO SITES. PT TOLERATED WELL.
--- NOTE | 2023-06-01 14:13 | NUR ---
PT DRESSES SELF AND GATHERS BELONGINGS. DISCUSSED DISCHARGE INSTRUCTIONS WITH PT, PT VERBALIZES UNDERSTANDING. PT LEAVES UNIT VIA WHEEL CHAIR ESCORTED BY DAVID CORRIGAN TO PRIVATE CAR, PT TO DRIVE SELF HOME.
== END 2023-06-01 14:13 | disposition home or self-care (01) | DRG 638 ==
LOC: ED 08:54 → MS 16:19
PROVIDERS: Emergency Medicine; ADMIT Family Medicine; ATTEND Family Medicine
PROC: 0T9B70Z Drainage of Bladder with Drainage Device, Via Natural or Artificial Opening (ICD-10-PCS; principal; 2023-05-29)
DX: E11.69 Type 2 diabetes mellitus with other specified complication (principal); L02.612 Cutaneous abscess of left foot; M86.8X7 Other osteomyelitis, ankle and foot; L03.116 Cellulitis of left lower limb; N17.9 Acute kidney failure, unspecified; R33.9 Retention of urine, unspecified; E11.621 Type 2 diabetes mellitus with foot ulcer; L97.529 Non-pressure chronic ulcer of other part of left foot with unspecified severity; I10 Essential (primary) hypertension; Z86.14 Personal history of Methicillin resistant Staphylococcus aureus infection; Z89.421 Acquired absence of other right toe(s); Z89.422 Acquired absence of other left toe(s); Z96.641 Presence of right artificial hip joint; Z90.49 Acquired absence of other specified parts of digestive tract; Z90.89 Acquired absence of other organs; Z98.890 Other specified postprocedural states; Z88.0 Allergy status to penicillin; Z88.1 Allergy status to other antibiotic agents; Z88.8 Allergy status to other drugs, medicaments and biological substances; Z79.899 Other long term (current) drug therapy; Z79.4 Long term (current) use of insulin
CPT/HCPCS: 36415; 36569; 51702; 51798; 73630; 73700; 73721; 74176; 76882; 80048; 80053; 81003; 82553; 83036; 83605; 85025; 85651; 86140; 87040; 99285-25; A9270; J0692; J0878; J1650; J1815; Q9967

== ENCOUNTER 2023-06-04 10:08 | Emergency (ER) | payer MEDICARE, OTHER ==
[~2023-06-04] VITALS: Ht 177.8 cm; Wt 95.2 kg
[~2023-06-04 10:08] MED LIST changes: +DAPTOMYCIN500 MG IV; +JARDIANCE25 MG PO; +TAMSULOSIN HCL0.4 MG PO; +TRULICITY4.5 MG/0.5 SUB-Q
--- OUTSIDE RECORDS SUMMARY | 2023-06-04 10:11 | XMS ---
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 Care History Medical/Surgical 06/16/2021 [facility] - [facility], \T\middot;\T\nbsp; PLEASE REFER PATIENT TO [facility] FOR NON EMERGENT MEDICAL NEEDS. \T\middot;\T\nbsp; [facility] CAN SEE PATIENTS SAME DAY FOR APTS IF PATIENT CALLS FIRST THING IN THE MORNING. E.D. VISIT COUNT (12 MO.) [address] [facility] TOTAL 2 NOTE: Visits indicate total known visits. ED/UCC VISIT TRACKING (12 MO.) 06/04/2023 10:09 [facility] TYPE: Emergency COMPLAINT: - LOW B/P, WOUND CHECK 05/29/2023 08:54 [facility] TYPE: Emergency COMPLAINT: - LT FOOT PAIN INPATIENT VISIT TRACKING (12 MO.) 05/29/2023 16:[address] [facility] [place] TYPE: Medical Surgical COMPLAINT: - OSTEMYELITIS DIAGNOSES: - Acquired absence of other left toe(s) - Acquired absence of other organs - Acquired absence of other right toe(s) - Acquired absence of other specified parts of digestive tract - Acute kidney failure, unspecified - Allergy status to other antibiotic agents - Allergy status to other drugs, medicaments and biological substances - Allergy status to penicillin - Cellulitis of left lower limb - Cutaneous abscess of left foot - Essential (primary) hypertension - correction (current) use of insulin - Non-pressure chronic ulcer of other part of left foot with unspecified severity - Other group home (current) drug therapy - Other osteomyelitis, ankle and foot - Other specified postprocedural states - Personal history of Methicillin resistant Staphylococcus aureus infection - Presence of right artificial hip joint - Retention of urine, unspecified - Type 2 diabetes mellitus with foot ulcer - Type 2 diabetes mellitus with other specified complication [email or web address]
[2023-06-04 10:29] LABS: BASOPHILS 1.2 % (0-2); EOSINOPHILS 4.6 % (0-6); HEMATOCRIT 38.6 % (35.0-50.0); LYMPHOCYTES 32.6 % (24-44); MCH 28.8 (27-36); MCHC 33.8 g/dl (30-36); MCV 85.4 fl (81-99); NEUTROPHILS 54.6 % (39-80); PLATELET COUNT 335 K/uL (140-440); RBC 4.52 M/ul (4.3-5.7); RDW 13.3 (10.5-15.0)
[2023-06-04 10:48] LABS: ALBUMIN 3.1 g/dL (3.4-5.0); ALBUMIN/GLOBULIN RATIO 0.67 (1.1-2.4); ANION GAP 13.9 (7-21); BILIRUBIN, TOTAL 0.4 ng/dL (0.2-1.0); BUN/CREATININE RATIO 17.15 (6.0-28.6); CALCIUM 8.5 mg/dL (8.5-10.1); CREATININE, SERUM 2.04 mg/dL (0.70-1.30); MAGNESIUM 1.9 mg/dL (1.8-2.4); POTASSIUM 4.9 mmol/L (3.5-5.1); PROTEIN, TOTAL 7.7 g/dL (6.4-8.2)
[2023-06-04 11:08] LABS: LACTIC ACID, BLOOD 1.1 mmol/L (0.4-2.0)
[2023-06-04 13:00] VITALS: BP 120/72
--- NOTE | 2023-06-04 22:44 | EKG ---
[facility] [address] [place] [address] Signed Normal sinus rhythm Normal ECG When compared with ECG of 08-DEC-2021 12:43, No significant change was found Confirmed by Palma Akbar MD () on 06/04/2023 10:44:42 PM Electronically Signed By: PALMA AKBAR MD 06/04/23 2244 PATIENT NAME: NANCY OH QUENTIN Electrocardiogram DATE OF : 59 PHYSICIAN: PALMA AKBAR MD REPORT #: [id number] REPORT IS CONFIDENTIAL AND NOT TO BE RELEASED WITHOUT AUTHORIZATION
== END 2023-06-04 13:15 | disposition home or self-care (01) ==
LOC: ED 10:08
PROVIDERS: Emergency Medicine
DX: I95.9 Hypotension, unspecified (principal); E86.0 Dehydration; L02.612 Cutaneous abscess of left foot; I10 Essential (primary) hypertension; E11.9 Type 2 diabetes mellitus without complications; Z88.1 Allergy status to other antibiotic agents; Z88.0 Allergy status to penicillin; Z79.899 Other long term (current) drug therapy; Z79.4 Long term (current) use of insulin
CPT/HCPCS: 36415; 80053; 83605; 83735; 85025; 85651; 86140; 93005; 93010; 96360; 99285-25; J7030

== ENCOUNTER 2023-07-05 09:25 | Emergency (ER) | payer MEDICARE, OTHER ==
[~2023-07-05] VITALS: Ht 177.8 cm; Wt 96.9 kg
[2023-07-05 12:13] LABS: INFLUENZA B NAA NEGATIVE (NEGATIVE); RESPIRATORY SYNCYTIAL VIR NAA NEGATIVE (NEGATIVE)
[2023-07-05 12:59] VITALS: BP 109/64
== END 2023-07-05 12:50 | disposition home or self-care (01) ==
LOC: ED 09:25
PROVIDERS: Emergency Medicine
DX: U07.1 COVID-19 (principal); E11.9 Type 2 diabetes mellitus without complications; I10 Essential (primary) hypertension; Z88.0 Allergy status to penicillin; Z88.1 Allergy status to other antibiotic agents; Z88.8 Allergy status to other drugs, medicaments and biological substances; Z79.899 Other long term (current) drug therapy; Z79.4 Long term (current) use of insulin
CPT/HCPCS: 87502; 99283; C9803; U0002

== ENCOUNTER 2024-09-06 05:42 | Day surgery (SDC) | payer MEDICARE, OTHER ==
[2024-08-28 11:21] VITALS: BP 108/69
[~2024-09-06] VITALS: Ht 177.8 cm; Wt 98.2 kg
[~2024-09-06 05:42] MED LIST changes: +LACTATED RINGER'S 1,000 ML IV SCH; +OZEMPIC2 MG/0.75 SUB-Q; +TYLENOL325 MG PO; +VITAMIN D350 MC3 PO; +ZYVOX600 MG PO
[2024-09-06 06:01] VITALS: BP 127/66
[2024-09-06] MEDS ORDERED: Ropivacaine HCl 0.5% 30 ML VIAL ONE (06:15)
[2024-09-06] MEDS ORDERED: DEXAMETHASONE SOD PHOS 4 MG/ML VIAL ONE (06:15)
[2024-09-06] MEDS ORDERED: LIDOCAINE HCL 2% 20 ML MDV ONE (06:15)
[2024-09-06] MEDS ORDERED: SUCCINYLCHOLINE IN 0.9% NACL 200 MG/10 ML SYRINGE ONE (06:50)
[2024-09-06] MEDS ORDERED: LIDOCAINE HCL 2% 5 ML SDV ONE (06:50)
[2024-09-06] MEDS ORDERED: ROCURONIUM BROMIDE 50 MG/5 ML SYR ONE (06:50)
[2024-09-06] MEDS ORDERED: propofoL 200 MG/20 ML VIAL ONE (06:50)
[2024-09-06] MEDS ORDERED: fentaNYL citrate 100 MCG/2 ML VIAL ONE (06:50)
[2024-09-06] MEDS ORDERED: IBLOOD GLUCOSE TEST STRIP 1 EA TEST VI PRN (07:00)
[2024-09-06] MEDS ORDERED: CEFAZOLIN SODIUM 1 GM/10 ML SYR IV SCH (07:00)
[2024-09-06] MEDS ORDERED: LIDOCAINE HCL 1% 5 ML SDV INJ ONE (07:00)
[2024-09-06] MEDS ORDERED: ePHEDrine sulfate 50 MG/ML AMP ONE (07:05)
[2024-09-06] MEDS ORDERED: ondansetron HCL 4 MG/2 ML VIAL ONE (08:11)
--- NOTE | 2024-09-06 08:51 | NUR ---
09/06/24 0851 Maxine Davis 0830 PT ARRIVED IN PACU SLEEPY. L FOOT ELEVATED ON PILLOW. [address] AWARE. 0850 RESTING. REU.
[2024-09-06 09:10] VITALS: BP 142/70
--- NOTE | 2024-09-06 09:13 | NUR ---
LE 0903: PT IS BACK TO DS FROM PACU. HE HAS NO COMPLAINTS OF PAIN/NAUSEA. HE WOULD LIKE SOME WATER AND APPLE SAUCE. FAMILY IS AT THE BEDSIDE. CALL LIGHT WITHIN REACH. NO ADDITIONAL NEEDS AT THIS TIME. DC CRITERIA IS REVIEWED.
[2024-09-06 10:00] VITALS: BP 152/79
--- NOTE | 2024-09-06 10:02 | NUR ---
PT IS DOING WELL. TOLERATING WATER AND APPLE SAUCE. HE WOULD LIKE TO GET UP AND USE THE RESTROOM.
--- NOTE | 2024-09-06 10:42 | NUR ---
LE 1010: PT IS HELPED UP OOB WITH STAND BY ASSIST TO GET TO THE BATHROOM. HE IS ABLE TO VOID 600MLS OF DARKISH YELLOW URINE. HE AMBULATES BACK WITH STAND BY ASSIST. HE INDICATES THAT HE WOULD LIKE TO GO HOME. HE HAS MET ALL DC CRITERIA. HE IS EDUCATED ON HOW TO BEST DRESS HIMSELF AND TO OPEN HIS CURTAIN WHEN HE IS READY. LE 1035: PT AND BROTHER ARE GIVEN VERBAL AND WRITTEN DC INSTRUCTIONS. THEY BOTH VERBALIZE UNDERSTANDING. QUESTIONS ARE ASKED AND ANSWERED. PT IS TAKEN TO PERSONAL VEHICLE VIA WC BY VOLUNTEER.
--- NOTE | 2024-09-07 21:08 | EKG ---
[facility] [address] [facility] [place], [place] [address] Signed Normal sinus rhythm Normal ECG When compared with ECG of 11-NOV-2023 18:22, No significant change was found Confirmed by Steve Milner MD ([id number]) on 09/07/2024 9:08:48 PM Electronically Signed By: STEVE MILNER MD 09/07/242107 PATIENT NAME: NANCY OH QUENTIN Electrocardiogram DATE OF : 59 PHYSICIAN: STEVE MILNER MD REPORT #: [id number] REPORT IS CONFIDENTIAL AND NOT TO BE RELEASED WITHOUT AUTHORIZATION
--- NOTE | 2024-09-08 11:10 | PATH ---
[facility] [address] [facility] [place], [place] [address] Signed SPECIMEN(S): A LEFT FOOT SPECIMEN SOURCE: A. 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 These findings, together with the gross examination, support the pathologic diagnosis. GROSS DESCRIPTION: The specimen, labeled and designated "Lula Oh, left foot per requisition," is received in formalin and consists of a 4 x 2.1 x 1 cm portion of white-pink fibrous tissue with scant amount of attached yellow lobulated adipose. The specimen is serially sectioned revealing a white homogenous cut surface. There are no areas of hemorrhage or necrosis. The specimen is entirely submitted cassette A1 through A3. AA (under the direct supervision of a pathologist) The Gross Description was prepared using a voice recognition system. The report was reviewed for accuracy; however, sound-alike word errors, addition and/or deletions may occur. If there is any question about this report, please contact Client Services. ADDITIONAL NOTES: Immunohistochemical and/or in situ hybridization studies if performed in this case included appropriate positive controls that reacted as expected. This test was developed and its performance characteristics determined by [facility]. It has not been cleared or approved by the U.S. Food and Drug Administration. The FDA has determined that PATIENT NAME: NANCY OH PATHOLOGY DATE OF : 59 REPORT #: [id number] PHYSICIAN: SHAISTA DE JESUS PCP: ASHLEY WALLIS REPORT IS CONFIDENTIAL AND NOT TO BE RELEASED WITHOUT AUTHORIZATION [address], [place] [address] Signed such clearance or approval is not necessary. This test is used for clinical purposes. It should not be regarded as investigational or for research. [facility] is certified under the Clinical Laboratory Improvement Amendments of 1988 (CLIA) as qualified to perform high complexity clinical laboratory testing. PERFORMING LABORATORY: Technical component [place] [address] (CLIA# [id number]). Professional interpretation was performed by [facility], [address] [place] [address] (CLIA#: [id number]). Diagnostician: Murali Marshall MD Pathologist Electronically Signed 09/08/2024 Copies: ~ PATIENT NAME: NANCY OH PATHOLOGY DATE OF : 59 REPORT #: [id number] PHYSICIAN: SHAISTA DE JESUS PCP: ASHLEY WALLIS REPORT IS CONFIDENTIAL AND NOT TO BE RELEASED WITHOUT AUTHORIZATION
--- NOTE | 2024-09-09 17:28 | OR ---
[facility] [address] [place], [place] [address] Signed DATE OF OPERATION: 09/06/2024 SURGEON: Miguel Angel Smith DPM PREOPERATIVE DIAGNOSES: 1. Charcot deformity, left foot. 2. Hypertrophy of bone, left foot. POSTOPERATIVE DIAGNOSES: 1. Charcot deformity, left foot. 2. Hypertrophy of bone, left foot. PROCEDURE: Excision of bone bump, plantar, left midfoot. The patient was brought into the operating room and placed on the table in the supine position. Anesthesia Department administered IV sedation after which a local block was given to the left foot using a total of 14 mL of 1:1 mixture, 2% lidocaine plain and 0.5% ropivacaine plain. The left leg and foot were then prepped and draped in the usual sterile manner and an Esmarch was used for hemostasis. SPECIMEN TO PATHOLOGY: Soft tissue lesion within the operative site. ANESTHESIA: General anesthetic with local block, left foot. FORDER OPERATOR: Omega Shin. DATE OF OPERATION: Attention was initially directed to the plantar left midfoot, where a bony bump was noted centrally. A longitudinal incision was made over the bump approximately 6-8 cm in length. Full-thickness through the dermis then deepened through the plantar soft tissues using careful dissection and cautery as necessary for hemostasis. Once at the level of deep fascia and capsular tissues, the incision was deepened to bone and soft tissues reflected to expose the bony prominence at this site. The bony prominence was then resected using hand instrumentation and smoothed using hand instrumentation as well. The surgical site was then irrigated with copious amounts of normal saline and bone wax applied to the raw bone in this area. With dissection, a soft tissue mass was Electronically Signed By: MIGUEL ANGEL SMITH DPM 09/09/24 1728 PATIENT NAME: NANCY OH OPERATIVE REPORT DATE OF : 59 REPORT #: [id number] PHYSICIAN: MIGUEL ANGEL SMITH DPM PCP: ASHLEY WALLIS FREIGHT REPRESENTATIVE-BC REPORT IS CONFIDENTIAL AND NOT TO BE RELEASED WITHOUT AUTHORIZATION [facility] [address] [place], [place] [address] Signed noted, this appeared as somewhat similar appearance to a ganglion, however, this did not appear to have fluid, this appeared to be a very soft white mildly fibrous type tissue, possibly bursa. This did not appear to be consistent with a ligament, but had a texture more like a lipoma without fat tissue noted. The soft tissue mass was removed and sent for Pathology. Deep ligamentous tissue closed using 3-0 Vicryl and then skin closed using 3-0 nylon monofilament suture. Dressings applied consisting of Adaptic, Betadine-soaked gauze, dry gauze, ABD pad, Kerlix roll, and Coban for mild compression. INTRAOPERATIVE COMPLICATIONS: None. ESTIMATED BLOOD LOSS: Less than 10 mL. The patient tolerated the procedure and the anesthesia well and left the operating room with vital signs stable and vascular status intact to the left foot as evidenced by hyperemia with removal of the Esmarch. Miguel Angel Smith DPM DFB/MODL /[id number] Copies: ~ Electronically Signed By: MIGUEL ANGEL SMITH DPM 09/09/24 1728 PATIENT NAME: NANCY OH OPERATIVE REPORT DATE OF : 59 REPORT #: [id number] PHYSICIAN: MIGUEL ANGEL SMITH DPM PCP: ASHLYE WALLIS [facility] REPORT IS CONFIDENTIAL AND NOT TO BE RELEASED WITHOUT AUTHORIZATION
== END 2024-09-06 10:35 | disposition home or self-care (01) ==
LOC: DS 05:42
PROVIDERS: ATTEND Podiatrist Foot Surgery
PROC: 0JBR0ZZ Excision of Left Foot Subcutaneous Tissue and Fascia, Open Approach (ICD-10-PCS; principal; 2024-09-06 07:00)
DX: M14.672 Charcot's joint, left ankle and foot (principal); M89.372 Hypertrophy of bone, left ankle and foot; E11.42 Type 2 diabetes mellitus with diabetic polyneuropathy; L84 Corns and callosities
CPT/HCPCS: 01480; 73630; 88307; 93005; 93010; J0330; J0690; J1100; J2003; J2405; J2704; J2795; J3010; J3490; J7121

== ENCOUNTER 2024-12-07 16:11 | Inpatient (IN) | payer MEDICARE, OTHER ==
[~2024-12-07] VITALS: Ht 177.8 cm; Wt 97.8 kg
[~2024-12-07 16:11] MED LIST changes: -LACTATED RINGER'S 1,000 ML IV SCH
[2024-12-07] MEDS ORDERED: ACETAMINOPHEN 500 MG TAB PO ONE (16:30)
[2024-12-07 16:36] LABS: BASOPHILS 0.5 % (0.2-1.2); EOSINOPHILS 0.7 % (0.8-7.0); HEMATOCRIT 38.9 % (40.1-51.0); HEMOGLOBIN 12.6 g/dL (13.7-17.5); LYMPHOCYTES 19.6 % (21.8-53.1); MCH 27.6 PG (25.7-32.2); MCHC 32.4 g/dL (32.3-36.5); MCV 85.1 fL (79.0-92.2); MONOCYTES 7.4 % (5.3-12.2); NEUTROPHILS 71.1 % (34.0-67.9); PLATELET COUNT 255 K/uL (163-337); RBC 4.57 M/uL (4.63-6.08)
[2024-12-07 16:54] LABS: ALBUMIN 3.5 g/dL (3.4-5.0); ALBUMIN/GLOBULIN RATIO 0.83 (1.1-2.4); BILIRUBIN, TOTAL 0.7 mg/dL (0.2-1.0); BUN/CREATININE RATIO 13.66 (6.0-28.6); CALCIUM 8.2 mg/dL (8.5-10.1); CREATININE, SERUM 1.83 mg/dL (0.70-1.30); PROTEIN, TOTAL 7.7 g/dL (6.4-8.2)
[2024-12-07 16:57] LABS: LACTIC ACID, BLOOD 1.1 mmol/L (0.4-2.0)
[2024-12-07] MEDS ORDERED: AZITHROMYCIN 250 MG TAB PO ONE (18:00)
[2024-12-07] MEDS ORDERED: CEFTRIAXONE SODIUM 1 GM in SODIUM CHLORIDE 0.9% 100 ML IV ONE (18:00)
[2024-12-07] MEDS ORDERED: CEFEPIME HCL 2 GM in SODIUM CHLORIDE 0.9% 100 ML IV SCH (18:45)
[2024-12-07] MEDS ORDERED: LINEZOLID 600 MG BAG IV SCH (18:45)
[2024-12-07] MEDS ORDERED: metroNIDAZOLE/SODIUM CHLORIDE 500 MG/100 ML PIGGYBACK IV SCH (18:45)
[2024-12-07] MEDS ORDERED: GLUCAGON,HUMAN RECOMBINANT 1 MG/ML VIAL SUB-Q PRN (19:30)
[2024-12-07] MEDS ORDERED: GABAPENTIN 300 MG CAP PO PRN (19:30)
[2024-12-07] MEDS ORDERED: DEXTROSE 5% 1,000 ML IV PRN (19:30)
[2024-12-07] MEDS ORDERED: DEXTROSE 50% 50 ML SYR IV PRN ×2 (19:30)
[2024-12-07] MEDS ORDERED: IBLOOD GLUCOSE TEST STRIP 1 EA TEST XX PRN (19:30)
[2024-12-07 19:33] VITALS: BP 103/57
[2024-12-07 19:38] VITALS: BP 103/57
--- NOTE | 2024-12-07 19:38 | NUR ---
RECEIVED REPORT FROM JOSEPH. PT ADMITTED TO ROOM 115, PT AMBUL[facility] TO [facility]ITAL BED FROM [facility]. RN TIEN IN TO DO ADMISSION FORMS.
--- NOTE | 2024-12-07 19:51 | NUR ---
ARRIVED TO ROOM 115 FROM ED VIA STRETCHER AT 1930. ALERT AND ORIENTED, COOPERATIVE WITH VITALS AND ADMIT QUESTIONS.. SOCKS GIVEN, UP TO BRP, INDEPENDENT. ORIENTED TO ROOM AND HOSP PROCEDURES
[2024-12-07] MEDS ORDERED: ondansetron HCL 4 MG/2 ML VIAL IV PRN (20:00)
[2024-12-07] MEDS ORDERED: LACTATED RINGER'S 1,000 ML IV ONE (20:00)
[2024-12-07] MEDS ORDERED: ACETAMINOPHEN 325 MG TAB PO PRN (20:00)
--- NOTE | 2024-12-07 20:29 | NUR ---
CALL LIGHT ANSWERED. PT NEEDED TO USE BATHROOM. APPLICATIONS DEVELOPMENT ANALYST SBA TO BATHROOM. PT HAD BM AND ASSISTED BACK TO BED. PT STATES NO FURTHER NEEDS AT THIS TIME. CALL LIGHT WITHIN REACH.
--- NOTE | 2024-12-07 20:45 | NUR ---
PT DOWN TO CT VIA WHEELCHAIR.
[2024-12-07] MEDS ORDERED: INSULIN LISPRO 100 UNIT/ML ML SUB-Q SCH (21:00)
[2024-12-07] MEDS ORDERED: INSULIN GLARGINE-YFGN 100 UNIT/ML ML SUB-Q SCH (21:00)
[2024-12-07] MEDS ORDERED: IBLOOD GLUCOSE TEST STRIP 1 EA TEST XX SCH (21:00)
--- NOTE | 2024-12-07 21:29 | NUR ---
DR. LOW NOTIFIED OF CT CHEST AND LEFT FOOT RESULTS. NO NEW ORDERS AT THIS TIME.
--- NOTE | 2024-12-07 22:30 | NUR ---
PT SLEEPING ON RIGHT SIDE. IV ATB'S CONTINUE.
--- NOTE | 2024-12-07 23:21 | NUR ---
Pt used call light, incontinent of large amount of liquid brown-greenish semiliquid stool/ Up to BRP, did own pericare.
[2024-12-08] VITALS (11 sets, daily range): BP systolic 99–126; BP diastolic 57–97
--- NOTE | 2024-12-08 01:15 | NUR ---
PT AWAKE, SLEEPING BETWEEN CARE. IV BEEPING, POSITIONAL.
--- NOTE | 2024-12-08 01:26 | NUR ---
FAMILY PROGRAM SPECIALIST OBTAINED VITALS AND I&O. PT STATES NO NEEDS AT THIS TIME. CALL LIGHT WITHIN REACH.
--- NOTE | 2024-12-08 03:50 | NUR ---
PT AWAKE, SLEEPING BETWEEN CARE. IV SITE POSITIONAL-RETAPED AND FLUSHED W/ NS.
[2024-12-08 05:17] LABS: BASOPHILS 0.4 % (0.2-1.2); EOSINOPHILS 0.9 % (0.8-7.0); HEMOGLOBIN 11.4 g/dL (13.7-17.5); LYMPHOCYTES 21.9 % (21.8-53.1); MCH 27.9 PG (25.7-32.2); MCHC 32.6 g/dL (32.3-36.5); MCV 85.6 fL (79.0-92.2); MONOCYTES 8.3 % (5.3-12.2); NEUTROPHILS 68.1 % (34.0-67.9); PLATELET COUNT 236 K/uL (163-337); RBC 4.09 M/uL (4.63-6.08)
--- NOTE | 2024-12-08 05:25 | NUR ---
DX: SEPSIS, ? LEFT FOOT INFECTION, ? RLL PNA. PT BEVERAGE SALES CONSULTANT REFERRED TO ER R/T FEVER, MALAISE. ONGOING LEFT FOOT PLANTAR WOUND SUSPICIOUS FOR OSTEOMYELITIS PER CT. COMPLETED LR BOLUS, MULTIPLE ATB'S. FEVER IMPROVED. HR SLIGHTLY TACHY. WBC 14
[2024-12-08 05:27] LABS: ANION GAP 10.5 (7-21); BUN/CREATININE RATIO 14.79 (6.0-28.6); CREATININE, SERUM 1.69 mg/dL (0.70-1.30); MAGNESIUM 1.3 mg/dL (1.8-2.4); POTASSIUM 4.5 mmol/L (3.5-5.1)
--- NOTE | 2024-12-08 06:00 | NUR ---
PT AWAKE, DENIES NEEDS AT THIS TIME.
[2024-12-08 06:16] LABS: CORONAVIRUS COVID-19 AG NEGATIVE (NEGATIVE); INFLUENZA A AG NEGATIVE (NEGATIVE); INFLUENZA B AG NEGATIVE (NEGATIVE)
--- NOTE | 2024-12-08 06:26 | NUR ---
DIRECTOR OF RESPIRATORY THERAPY OBTAINED VITALS AND I&O. PT STATES NO FURTHER NEEDS AT THIS TIME. CALL LIGHT WITHIN REACH.
--- NOTE | 2024-12-08 08:19 | NUR ---
UR CLINICAL REVIEW: 2 MN FOR VERSALUS-PER PARACHUTE SUPERVISOR MEETS INPT FOR FOR FIBRILE ILLAHSAN WITH UNKNOWN ETIOLOGY MEDICARE INPT 12/07/24 @ 0844 ORDER MATCHES REG NO AUTH REQUIRED PER MEDICARE GUIDELINES DISCHARGE TO HOME WHEN STABLE
--- NOTE | 2024-12-08 08:32 | NUR ---
BLOOD SUGAR CHECKED AND DOCUMENTED. NO CARES WERE REQUESTED. CALL LIGHT AND PERSONAL ITEMS ARE WITHIN REACH.
[2024-12-08] MEDS ORDERED: PANTOPRAZOLE SODIUM 40 MG TABEC PO SCH (09:00)
[2024-12-08] MEDS ORDERED: MAGNESIUM SULFATE 2 GM/50 ML BAG IV SCH (09:00)
[2024-12-08] MEDS ORDERED: ENOXAPARIN SODIUM 40 MG/0.4 ML SYR SUB-Q SCH (09:00)
--- NOTE | 2024-12-08 09:02 | NUR ---
Patient in bed resting, easily wakes to verbal stimuli. MRI screening completed at this time. Patient reports his left foot is painful. Notable simple adhesive dressing in place-CDI. Patient encouraged to keep legs elevated, pt reports his understanding.
[2024-12-08] MEDS ORDERED: OXYCODONE HCL 5 MG TAB PO PRN (09:30)
--- NOTE | 2024-12-08 09:53 | NUR ---
PATIENT'S BLOOD PRESSURE WAS LOW, BETHANY WAGNER NOTIFIED. V.S. WILL BE RETAKEN AT 1100. BETHANY WAGNER IN ROOM FOR MEDICATION ADMINISTRATION. PATIENT'S BREAKFAST WAS WARMED UP.
--- NOTE | 2024-12-08 10:04 | NUR ---
Patient off floor for MRI study.
--- NOTE | 2024-12-08 10:21 | NUR ---
INTO SEE PATIENT. PERSONAL HEALTH INFORMATION REVIEWED. PATIENT LIVES ALONE NO STEPS INTO HOUSE. DENIES DIFFCULTY DOING THEM. PATIENT DOES NOT USE DME. DRIVES AT BASELINE. DENIES ANY DIFFCULTY PAYING UTILITIES OR OBTAINING FOOD. NO FUTHER CM NEEDS AT THIS TIME.
--- NOTE | 2024-12-08 10:39 | NUR ---
Patient remains off the medical floor for MRI. Antibiotics are a bit behind due to patient being off of the floor.
--- NOTE | 2024-12-08 11:09 | NUR ---
PT NOT AVAILABLE FOR VISIT. PROVIDED PRAYER.
--- NOTE | 2024-12-08 11:19 | NUR ---
Patient back from MRI study. Patient awake, alert/oriented x3, no acute distress. Admin oxycodone 5mg po at this time for reported 5/10 left foot pain.
[2024-12-08] MEDS ORDERED: LACTATED RINGER'S 1,000 ML IV ONE (11:45)
[2024-12-08] MEDS ORDERED: PHARMACY RENAL DOSE ADJUSTMENT 1 DOSE MISC PO SCH (12:00)
[2024-12-08 12:45] LABS: BILIRUBIN, URINE NEGATIVE (negative); BLOOD/HGB, URINE NEGATIVE (Negative); KETONE, URINE NEGATIVE (Negative); LEUK ESTERASE, URINE NEGATIVE (negative); NITRITE, URINE NEGATIVE (negative)
[2024-12-08] MEDS ORDERED: OMEPRAZOLE20 MG PO (14:39)
[2024-12-08] MEDS ORDERED: OZEMPIC2 MG/0.75 SUB-Q (14:39)
[2024-12-08] MEDS ORDERED: LANTUS SOL100 UNIT/1 SUB-Q (14:41)
[2024-12-08] MEDS ORDERED: NOVOLOG FL100 UNIT/1 SUB-Q (14:43)
[2024-12-08] MEDS ORDERED: NEURONTIN600 MG PO (14:46)
[2024-12-08] MEDS ORDERED: FEOSOL325 MG PO (14:51)
[2024-12-08] MEDS ORDERED: JARDIANCE10 MG PO (14:52)
[2024-12-08] MEDS ORDERED: VITAMIN D350 MC3 PO (14:53)
[2024-12-08] MEDS ORDERED: VITAMIN C500 M1 PO (14:54)
--- NOTE | 2024-12-08 16:11 | NUR ---
MED REC COMPLETE
--- NOTE | 2024-12-08 16:27 | NUR ---
Patient up to void, 300ml clear yellow urine noted. Patient assisted back to bed. US at bedside for ordered echo study. Call light within reach.
--- NOTE | 2024-12-08 17:08 | NUR ---
PATIENT PROVIDED CLEAN GOWN AFTER ECHO. BLOOD SUGAR WAS CHECKED AND RECORDED.
--- NOTE | 2024-12-08 17:10 | NUR ---
Patient sitting in bed watching tv, no acute distress. Patient reports 5/10 LLE pain. Admin tylenol 650mg po, oxycodone 5mg po and neurontin 300mg po at this time. Dinner to patient, fresh water provided. No further needs, personal supplies and call light within reach.
--- NOTE | 2024-12-08 19:18 | NUR ---
RECEIVED REPORT FROM BETHANY WAGNER. PT ASLEEP ON RIGHT SIDE, APPEARS COMFORTABLE. CALL LIGHT WITHIN REACH.
--- NOTE | 2024-12-08 20:59 | NUR ---
PT RESTING IN BED VISITING W/ FAMILY. VSS. ASSISTED PT TO BR, SBA W/ FWW. PT USES FWW TO DECREASE WEIGHT BEARING TO LEFT FOOT. REPORTS PAIN 7/10 TO LEFT FOOT, NOT DUE FOR NEXT DOSE OF PRN OXY UNTIL 2099. LSC DIM TO RIGHT BASE. HRR. 1+ EDEMA TO LEFT FOOT. BTA, LBM TODAY. VOIDS WNL. SL TO LAC WNL. PT HAS PINK FOAM DRSG TO LEFT PLANTAR FOOT, CDI. CMS INTACT. IV ATB'S STARTED. BG 209, COVERED W/ SLIDING SCALE AND LANTUS. CALL LIGHT WITHIN REACH. PT CURRENTLY SITTING EOB.
[2024-12-08] MEDS ORDERED: INSULIN GLARGINE-YFGN 100 UNIT/ML ML SUB-Q SCH (21:00)
--- NOTE | 2024-12-08 21:12 | NUR ---
PT MEDICATED W/ PRN OXYCODONE FOR 8/10 LEFT FOOT PAIN.
--- NOTE | 2024-12-08 22:45 | NUR ---
PT ASLEEP, APPEARS COMFORTABLE. IV ATB INFUSING.
[2024-12-09] VITALS (10 sets, daily range): BP systolic 111–136; BP diastolic 56–72
--- NOTE | 2024-12-09 00:09 | NUR ---
PT AWAKE, SLEEPING BETWEEN CARE. DENIES NEEDS AT THIS TIME.
--- NOTE | 2024-12-09 01:57 | NUR ---
AWAKE, IV ATB'S DONE FOR NOW. IV SL'D. NO NEEDS OR CONCERNS AT THIS TIME.
--- NOTE | 2024-12-09 04:48 | NUR ---
PRESCHOOL LEAD TEACHER OBTAINED VITALS AND I&O. PT STATES NO NEEDS AT THIS TIME. CALL LIGHT WITHIN REACH AND BED ALARM ON.
[2024-12-09 05:06] LABS: BASOPHILS 0.3 % (0.2-1.2); HEMATOCRIT 35.3 % (40.1-51.0); HEMOGLOBIN 11.5 g/dL (13.7-17.5); LYMPHOCYTES 17.2 % (21.8-53.1); MCH 27.5 PG (25.7-32.2); MCHC 32.6 g/dL (32.3-36.5); MCV 84.4 fL (79.0-92.2); MONOCYTES 5.9 % (5.3-12.2); NEUTROPHILS 74.1 % (34.0-67.9); PLATELET COUNT 218 K/uL (163-337); RBC 4.18 M/uL (4.63-6.08)
--- NOTE | 2024-12-09 05:07 | NUR ---
PT AWAKE, WATCHING TV. REQUESTED WARM BLANKET-PROVIDED.
[2024-12-09 05:22] LABS: ANION GAP 11.4 (7-21); BUN/CREATININE RATIO 14.45 (6.0-28.6); CALCIUM 8.2 mg/dL (8.5-10.1); CREATININE, SERUM 1.66 mg/dL (0.70-1.30); POTASSIUM 4.4 mmol/L (3.5-5.1)
--- NOTE | 2024-12-09 09:59 | NUR ---
PATIENT CALLED REPORTING THEIR IV PUMP ALARM GOING OFF. BETHANY WAGNER NOTIFIED.
--- NOTE | 2024-12-09 12:27 | NUR ---
Patient sitting up in chair, alert and oriented x3, no acute distress. Patient has legs elevated at this time, tolerating well. IV abx infusing per order. Patient denies needs, personal supplies and call light within reach.
--- NOTE | 2024-12-09 13:55 | NUR ---
Patient showered, tolerated well. Patient received oxycodone 5mg po at this time for reported 5/10 left foot pain. Patient denies further needs, call light within reach.
--- NOTE | 2024-12-09 14:25 | NUR ---
PATIENT SHOWERED WITH SET UP ASSISTANCE. GOWN, SOCKS, AND BED LINENS CHANGED. PATIENT BRUSHED THEIR TEETH AND REQUESTED LOTION.
--- NOTE | 2024-12-09 19:20 | NUR ---
RECEIVED REPORT FROM BETHANY WAGNER. PT AWAKE, PLEASANT. DENIES NEEDS OR CONCERNS AT THIS TIME.
--- NOTE | 2024-12-09 22:11 | NUR ---
PATIENT LAYING IN BED. PATIENT REQUESTED PILLOWS UNDER HIS LEGS. NO FURTHER NEEDS AT THIS TIME AND CALL LIGHT WITHIN REACH.
--- NOTE | 2024-12-09 22:25 | NUR ---
PT RESTING ON RIGHT SIDE, LLE ELEVATED ON PILLOWS.
[2024-12-10] VITALS (7 sets, daily range): BP systolic 105–124; BP diastolic 61–65
--- NOTE | 2024-12-10 00:35 | NUR ---
PT AWAKE, SLEEPING BETWEEN CARE. DENIES NEEDS AT THIS TIME.
--- NOTE | 2024-12-10 02:31 | NUR ---
AWAKE, SLEEPING BETWEEN CARE.
[2024-12-10 05:13] LABS: BASOPHILS 0.3 % (0.2-1.2); EOSINOPHILS 3.7 % (0.8-7.0); HEMATOCRIT 34.3 % (40.1-51.0); LYMPHOCYTES 21.4 % (21.8-53.1); MCHC 32.1 g/dL (32.3-36.5); MCV 84.1 fL (79.0-92.2); MONOCYTES 5.8 % (5.3-12.2); NEUTROPHILS 68.4 % (34.0-67.9); PLATELET COUNT 244 K/uL (163-337); RBC 4.08 M/uL (4.63-6.08)
[2024-12-10 05:25] LABS: ANION GAP 7.3 (7-21); BUN/CREATININE RATIO 12.8 (6.0-28.6); CALCIUM 8.3 mg/dL (8.5-10.1); CREATININE, SERUM 1.64 mg/dL (0.70-1.30); MAGNESIUM 1.7 mg/dL (1.8-2.4); POTASSIUM 4.3 mmol/L (3.5-5.1)
--- NOTE | 2024-12-10 06:30 | NUR ---
PT AWAKE, SLEEPING BETWEEN CARE. DENIES PAIN. LEFT FOOT WOUND UNCHANGED.
--- NOTE | 2024-12-10 06:53 | NUR ---
PT REPORTS FEELING QUEASY THIS AM-MEDICATED W/ PRN IV ZOFRAN AND GIVEN BENJI NHUNG PER REQUEST. PT SITTING EOB, EMESIS BAG NEAR.
[2024-12-10] MEDS ORDERED: MAGNESIUM CHLORIDE 64 MG TABCR PO ONE (08:00)
--- NOTE | 2024-12-10 08:34 | NUR ---
THIS DAIRY PRODUCTS MAKER IN TO DO BLOOD SUGAR AND MORNING ROUNDS. BLOOD SUGAR DONE AND CHARTED. PATIENT UP TO BATHROOM AND THEN TO CHAIR, SBA FWW. LINENS CHANGED. CALL LIGHT IN REACH. NO FURTHER NEEDS AT THIS TIME.
--- NOTE | 2024-12-10 08:36 | NUR ---
Patient in bed resting, easily wakes to verbal stimuli. Patient reports unrelieved nausea, recent dose of zofran given. Will hold po medications at this time. Cool compress provided to patient. IV abx started per order. Patient Patient's hob elevated at this time. Dry dressing to left foot noted, encoaurged patient to elevate legs. Call light within pt reach.
[2024-12-10] MEDS ORDERED: PROCHLORPERAZINE EDISYLATE 10 MG/2 ML VIAL IV PRN (08:45)
--- NOTE | 2024-12-10 09:16 | NUR ---
Admin compazine 10mg iv per protocol at this time for reports of nausea. Patient resting, easily wakes to verbal stimuli, no acute distress. Call light remains within reach.
--- NOTE | 2024-12-10 09:39 | NUR ---
PATIENT SITTING UP ON EDGE OF BED AT THIS TIME. VITALS AND I&O'S DONE AND CHARTED. PATIENT HAS ORAL CARE SUPPLIES AT SINK. CALL LIGHT IN REACH. NO FRUTHER NNEEDS AT THIS TIME.
--- NOTE | 2024-12-10 09:50 | NUR ---
Oxycodone 5mg po admin at this time for 5/10 left foot pain.
[2024-12-10 11:57] LABS: ALBUMIN 2.6 g/dL (3.4-5.0); ALBUMIN/GLOBULIN RATIO 0.67 (1.1-2.4); BILIRUBIN, DIRECT 0.1 mg/dL (0.0-0.2); BILIRUBIN, INDIRECT 0.3 (0.1-0.7); BILIRUBIN, TOTAL 0.4 mg/dL (0.2-1.0); PROTEIN, TOTAL 6.5 g/dL (6.4-8.2)
--- NOTE | 2024-12-10 12:29 | NUR ---
Patient sitting up on edge of bed eating lunch, tolerating wel. Patient reports he is feeling better this afternoon, no nausea at this time. Patient reports LLE pain is tolerable, 5/10 reported.
--- NOTE | 2024-12-10 13:36 | NUR ---
VERBAL REPORT RECEIVED FROM BETHANY WAGNER. PT RESTS IN BED AWAKE, CALL LIGHT IN REACH, NO REQUESTS AT THIS TIME.
[2024-12-10] MEDS ORDERED: CEFEPIME HCL 1 GM in SODIUM CHLORIDE 0.9% 100 ML IV SCH (14:00)
--- NOTE | 2024-12-10 16:40 | NUR ---
PT PASSES BM. BACK TO BED, CALL LIGHT IN REACH. NO FURTHER REQUESTS AT THIS TIME.
--- NOTE | 2024-12-10 16:55 | NUR ---
DR. CONTEH SEES PT, CHANGES DRESSING TO LEFT PLANTAR FOOT WOUND, IODOSORB AND FOAM DRESSING IN PLACE. PT TOLERATES WELL.
--- NOTE | 2024-12-10 18:11 | NUR ---
PATIENT IN BED RESTING WITH EYES CLOSED. VITALS AND I&O'S DONE AND CHARTED. CALL LIGHT IN REACH. NO FURTHER NEEDS AT THIS TIME.
--- NOTE | 2024-12-10 19:12 | NUR ---
RECEIVED REPORT. PT IN BED WITH EYES CLOSED, RISE AND FALL OF CHEST OBSERVED. CALL LIGHT IN REACH
--- NOTE | 2024-12-10 19:40 | NUR ---
RESPONDED TO BEEPING IV, PT SIDE OCCLUDED. RESTARTED IV. PT ALERT, NO NEEDS. CALL LIGHT I NREACH
--- NOTE | 2024-12-10 21:55 | NUR ---
VITALS, ASSESSMENT, EVENING MEDS. PT C/O 01/11 PAIN OF FOOT, GIVEN PRN OXYCODONE. NO OTHER NEEDS, CALL LIGHT IN REACH
--- NOTE | 2024-12-10 23:35 | NUR ---
PT RESTING IN BED WITH EYES CLOSED, RISE AND FALL OF CHEST OBSERVED. NO NEEDS, CALL LIGHT IN REACH
--- NOTE | 2024-12-11 01:52 | NUR ---
PT RESTING IN BED WITH EYES CLOSED, RISE AND FALL OF CHEST OBSERVED. [facility]ACH
--- NOTE | 2024-12-11 03:08 | NUR ---
AM ABX. STARTED AT 0300 D/T PREVIOUS ADMIN TIME. PT RESTING WITH EYES CLOSED, RISE AND FALL OF CHEST NOTED. CALL LGT IN REACH
[2024-12-11 05:32] LABS: BASOPHILS 0.6 % (0.2-1.2); EOSINOPHILS 4.7 % (0.8-7.0); HEMATOCRIT 34.8 % (40.1-51.0); HEMOGLOBIN 11.3 g/dL (13.7-17.5); LYMPHOCYTES 22.3 % (21.8-53.1); MCH 27.4 PG (25.7-32.2); MCHC 32.5 g/dL (32.3-36.5); MCV 84.5 fL (79.0-92.2); MONOCYTES 6.3 % (5.3-12.2); NEUTROPHILS 65.9 % (34.0-67.9); PLATELET COUNT 233 K/uL (163-337); RBC 4.12 M/uL (4.63-6.08)
[2024-12-11 05:36] VITALS: BP 105/50
--- NOTE | 2024-12-11 05:36 | NUR ---
VITALS, I&OS. REFRESHED ICE WATER. NO OTHER NEEDS, CALL LIGHT IN REACH
[2024-12-11 05:46] LABS: ANION GAP 7.4 (7-21); BUN/CREATININE RATIO 10.96 (6.0-28.6); CALCIUM 8.6 mg/dL (8.5-10.1); CREATININE, SERUM 1.55 mg/dL (0.70-1.30); MAGNESIUM 1.7 mg/dL (1.8-2.4); POTASSIUM 4.4 mmol/L (3.5-5.1)
--- NOTE | 2024-12-11 07:32 | NUR ---
REPORT FROM CHEMICAL LAB SUPERVISOR.
[2024-12-11 08:13] VITALS: BP 105/50
--- NOTE | 2024-12-11 08:14 | NUR ---
MORNING ASSESSMENT IS COMPLETE. PATIENT IS RESTING QUIETLY IN BED, DENIES PAIN. IV CEFAPIME IS INFUSING FOR 4 HOURS. DRESSING INTACT TO LEFT FOOT. BREAKFAST IS IN ROOM, PATIENT IS DISINTERESTED. NO OTHER NEEDS AT THIS TIME.
[2024-12-11] MEDS ORDERED: MAGNESIUM CHLORIDE 64 MG TABCR PO ONE (08:15)
--- NOTE | 2024-12-11 08:16 | NUR ---
PATIENT BG IS 129 WITH NO COVERAGE. PATIENT WILL CALL WHEN HE EATS BREAKFAST AND PO MG WILL BE GIVEN THEN.
--- NOTE | 2024-12-11 09:23 | NUR ---
PATIENT IS AWAKE, UP TO USE URINAL. BREAKFAST REHEATED AND MORNING MEDICATIONS GIVEN. PATIENT DENIES OTHER NEEDS AT THIS TIME.
--- NOTE | 2024-12-11 09:59 | NUR ---
PATIENT ATE 40% OF BREAKFAST AND IS NOW SLEEPING WITH REGULAR RESPIRATIONS. ICE WATER REFILLED. I/O COMPLETE.
[2024-12-11 10:05] VITALS: BP 110/65
[2024-12-11] MEDS ORDERED: CEFDINIR300 MG PO (10:49)
--- NOTE | 2024-12-11 10:57 | NUR ---
INTO SEE PATIENT. PATIENT UP IN THE BED. STATES HE IS DISCHARGING TODAY. NO FUTHER CM NEEDS AT THIS TIME.
[2024-12-11 13:50] VITALS: BP 113/65
--- NOTE | 2024-12-11 20:22 | NUR ---
PHONE CALL FROM pt. pt STATES [facility] UNABLE TO FILL PRESCRIPTION FOR ANTIBIOTIC. [facility] WILL NOT BE ABLE TO GET PRESCRIPTION TONIGHT WELL. PHONE CALL TO MD, TELEPHONE ORDER FOR TAKE HOME PACK RECEIVED. pt AND CREATIVE ENGAGEMENT DIRECTOR UPDATED. pt'S DAUGHTER KRISTOPHER WILL ELECTRICAL AND INSTRUMENT TECHNICIAN MEDICATION IN ER.
[2024-12-11] MEDS ORDERED: CEFDINIR 300 MG HOME.PACK PO ONE (20:30)
== END 2024-12-11 14:00 | disposition home or self-care (01) | DRG 872 ==
LOC: ED 16:11 → MS 18:43
PROVIDERS: Emergency Medicine; Family Medicine; ADMIT Student in an Organized Health Care Education/Training Program; ATTEND Student in an Organized Health Care Education/Training Program
DX: A41.9 Sepsis, unspecified organism (principal); M86.8X7 Other osteomyelitis, ankle and foot; L03.116 Cellulitis of left lower limb; L97.522 Non-pressure chronic ulcer of other part of left foot with fat layer exposed; K21.9 Gastro-esophageal reflux disease without esophagitis; E11.69 Type 2 diabetes mellitus with other specified complication; E11.42 Type 2 diabetes mellitus with diabetic polyneuropathy; Z66 Do not resuscitate; E11.621 Type 2 diabetes mellitus with foot ulcer; I12.9 Hypertensive chronic kidney disease with stage 1 through stage 4 chronic kidney disease, or unspecified chronic kidney disease; E11.22 Type 2 diabetes mellitus with diabetic chronic kidney disease; N18.9 Chronic kidney disease, unspecified; Z88.1 Allergy status to other antibiotic agents; Z88.0 Allergy status to penicillin; Z88.8 Allergy status to other drugs, medicaments and biological substances; Z86.14 Personal history of Methicillin resistant Staphylococcus aureus infection; Z98.890 Other specified postprocedural states; Z79.899 Other long term (current) drug therapy; Z89.421 Acquired absence of other right toe(s); Z89.412 Acquired absence of left great toe; Z90.49 Acquired absence of other specified parts of digestive tract; Z90.89 Acquired absence of other organs; Z79.4 Long term (current) use of insulin
CPT/HCPCS: 36415; 71045; 71250; 73630; 73700; 73723; 80048; 80053; 80076; 81003; 82550; 83605; 83735; 85025; 85651; 86140; 87040; 93306; 97161; 97165; 97530; 99285-25; A9270; A9573; J0692; J0696; J0780; J1650; J1815; J2020; J2405; J3475; J7121; Q9967